=== PATIENT | male | born 1980 | race Caucasian/White ===

== ENCOUNTER 2020-10-26 15:23 | Inpatient (IN) | payer OTHER, SELFPAY ==
--- NOTE | ~2020-10-26 | CT_ITS ---
EXAMINATION: CT ANGIOGRAM HEAD CT ANGIOGRAM NECK CLINICAL INFORMATION: Bilateral hemianopsia. COMPARISON: CT head from 10/26/2020. Brain MRI from 10/26/2020. TECHNIQUE: Initial noncontrast food clerk imaging of the head and neck was performed. Comparison is made with noncontrast head CT from earlier today. Test bolus sequences followed by intravenous administration 70 mL of Omnipaque 350. Helical imaging was performed in the axial plane from the aortic arch to the skull vertex. Delayed postcontrast imaging of the head was also performed. The data was processed at the chief ultrasound technologist's workstation for generation of MIP sequences. Angled MIPs and volume rendered reformatted images were also generated at an offline 3D workstation. Stenoses are assessed in accordance with NASCET criteria unless otherwise indicated. This CT examination was performed using dose optimization techniques as appropriate, variously including the following: *Automated exposure control. *Adjustment of mA and/or kV according to patient size (this includes techniques or standardized protocols for targeted exams where dose is matched to indication/reason for exam; i.e. extremities or head). *Use of iterative reconstruction technique. DLP: 1490 mGy-cm FINDINGS: CT Head: Redemonstrated regions of lost burdick-white matter differentiation involving the bilateral MANUFACTURING QUALITY TECHNICIAN territories including the right greater than left mesial temporal lobes and parasagittal right occipital lobe. There is no evidence of acute intracranial hemorrhage. No additional abnormal attenuation within the brain parenchyma. The ventricles are normal in size and configuration. No evidence for obstructive hydrocephalus. No abnormal mass effect or midline shift. No extra-axial fluid collections. No pathologic intra-axial enhancement or regional oligemia. No acute soft tissue or osseous abnormalities. Mild mucosal thickening of the paranasal sinuses. Moderate leftward nasal septal deviation. The mastoid air cells and middle ear cavities are clear. CT Neck: The thyroid gland and remaining cervical soft tissues are within normal limits. Mild degenerative disc disease at C4-C5 and C5-C6 with slight disc-osteophyte complex formation. No additional significant abnormalities of the cervical spine. CT Upper Chest: The visualized lung apices and upper mediastinum are within normal limits. Neck CTA: Aortic Arch: Normal contour and caliber. Classic 3 vessel branching pattern of the aortic arch. Great Vessel Origins: No significant stenosis of the branch origins. Right Common Carotid Artery: No focal stenosis or occlusion. Cervical Right Internal Carotid Artery: Normal opacification without focal stenosis or occlusion. Left Common Carotid Artery: No focal stenosis or occlusion. Cervical Left Internal Carotid Artery: Normal opacification without focal stenosis or occlusion. Cervical Right Vertebral Artery: Co-dominant. No focal stenosis or occlusion. Cervical Left Vertebral Artery: Co-dominant. No focal stenosis or occlusion. Brain CTA: Intracranial Internal Carotid Arteries: No focal stenosis or occlusion. Right Anterior Cerebral Artery: Normal A1 segment. Normal opacification of the distal FLAVIO segments. Left Anterior Cerebral Artery: Normal A1 segment. Normal opacification of the distal FLAVIO segments. Anterior Communicating Artery: Normal. Right Middle Cerebral Artery: Normal M1 segment of the MCA without focal stenosis or occlusion. Normal arborization of the distal segments. Left Middle Cerebral Artery: Normal M1 segment of the MCA without focal stenosis or occlusion. Normal arborization of the distal segments. Right Vertebral Artery: Normal V4 segment. Normal opacification of the proximal segments of the posterior inferior cerebellar artery. Left Vertebral Artery: Normal V4 segment. Extradural origin of the left posterior inferior cerebellar artery. Otherwise, normal opacification of the proximal segments of the posterior inferior cerebellar artery. Basilar Artery: Normal without focal stenosis or occlusion. Normal appearance of the proximal superior cerebellar arteries. Right Posterior Cerebral Artery: Normal P1 segment. Normal opacification of the distal MANUFACTURING QUALITY TECHNICIAN segments. Left Posterior Cerebral Artery: Normal P1 segment. Normal opacification of the distal MANUFACTURING QUALITY TECHNICIAN segments. Normal opacification of the superior sagittal, straight, transverse, and sigmoid sinuses. CT/CT angio head neck IMPRESSION: Redemonstrated regions of lost burdick-white matter differentiation involving the bilateral MANUFACTURING QUALITY TECHNICIAN territories including the right greater than left mesial temporal lobes and parasagittal right occipital lobe. No evidence of hemorrhagic conversion. This change may represent sequela of developing acute ischemic insults. However, recommend correlation with blood pressures as this could also represent a slightly atypical appearance of posterior reversible encephalopathy syndrome (PRES). Potential prior seizure activity should also be taken into account has some of these changes could be seen in the postictal state. The distribution would be slightly atypical for infectious/inflammatory encephalitis but this should also be considered in the appropriate clinical setting. Normal CTA head and neck.
--- NOTE | ~2020-10-26 | CT_ITS ---
EXAMINATION: CT HEAD WITHOUT CONTRAST CLINICAL INFORMATION: Vision changes in the left side. Question stroke. COMPARISON: None TECHNIQUE: Contiguous axial imaging was performed from the skull base to vertex without intravenous administration of contrast. This CT examination was performed using dose optimization techniques as appropriate, variously including the following: *Automated exposure control *Adjustment of mA and/or kV according to patient size (this includes techniques or standardized protocols for targeted exams where dose is matched to indication/reason for exam; i.e. extremities or head) *Use of iterative reconstruction technique DLP: 661 mGy-cm FINDINGS: There is no evidence of an extra-axial collection. There is no evidence of intra-axial or extra-axial hemorrhage. The ventricles and extra-axial CSF spaces are appropriate. There is low-attenuation seen in the medial right occipital lobe questionable for an early infarct. No mass effect is seen. There is calcification of the basal ganglia. Review of bone windows is normal. Visualized paranasal sinuses, mastoid air cells and middle ears are clear. CT/CT head/brain wo con IMPRESSION: Question acute right occipital lobe infarct. No hemorrhage is seen. Findings were communicated to Hayley Evans by telephone on 10/26/2020 at 4:34 PM
--- NOTE | ~2020-10-26 | CT_ITS ---
EXAMINATION: CT HEAD WITHOUT CONTRAST CLINICAL INFORMATION: Headache. COMPARISON: Head CT and brain MRI from 10/26/2020. TECHNIQUE: Contiguous axial imaging was performed from the skull base to vertex without intravenous administration of contrast. This CT examination was performed using dose optimization techniques as appropriate, variously including the following: *Automated exposure control *Adjustment of mA and/or kV according to patient size (this includes techniques or standardized protocols for targeted exams where dose is matched to indication/reason for exam; i.e. extremities or head) *Use of iterative reconstruction technique DLP: 684 mGy-cm FINDINGS: Again noted is the abnormal hypoattenuation with loss of burdick-white differentiation involving the parasagittal right occipital lobe and mesial temporal lobe, as well as persistent subtle hypoattenuation of the mesial left temporal lobe. No hemorrhagic conversion. No mass effect or midline shift. The ventricles have normal size and configuration. There is symmetric mineralization of the globus pallidus. No extra-axial fluid collections. The brainstem is unremarkable. Again noted is mild cerebellar atrophy. The calvarium is intact and the visualized paranasal sinuses, mastoid air cells and middle ear cavities are well aerated. The orbits, globes and temporomandibular joints are unremarkable. CT/CT head/brain wo con IMPRESSION: No hemorrhagic conversion within previously observed areas of hypoattenuation and loss of burdick-white differentiation in the CHARGE ACCOUNT IDENTIFICATION CLERK territories. No new intracranial pathology compared to 10/26/2020.
--- NOTE | ~2020-10-26 | MR_ITS ---
EXAMINATION: MR BRAIN WITHOUT CONTRAST CLINICAL INFORMATION: Left homonymous hemianopsia. COMPARISON: CT head from 10/26/2020. TECHNIQUE: MRI of the brain was obtained using routine sequences without contrast. FINDINGS: Restricted diffusion in the right POSTDOCTORAL RESEARCH FELLOW territory involving the right-sided posterior mesial temporal lobe and parasagittal occipital lobe. To a lesser extent, there is also a small region of restricted diffusion within the left POSTDOCTORAL RESEARCH FELLOW territory involving the posterior left-sided mesial temporal lobe. No additional restricted diffusion. Associated T2 FLAIR hyperintensities. Mineralization of the bilateral globus pallidus by. No evidence of acute or chronic hemorrhagic products on heme-sensitive imaging. Nonspecific scattered periventricular and deep white matter T2 FLAIR hyperintensities. Mild generalized volume loss most notably affecting the cerebellum. Proportional prominence of the ventricles and sulcal spaces without evidence of obstructive hydrocephalus. No abnormal mass effect. No midline shift. Normal appearance of the pituitary gland. Normal positioning of the cerebellar tonsils. Normal arterial and venous vascular flow voids are present. Normal, homogeneous marrow signal. Mild mucosal thickening of the paranasal sinuses. No signal abnormalities within the mastoids. Mild mucosal thickening of the paranasal sinuses. No signal abnormalities within the mastoids MR/MR head/brain wo con IMPRESSION: 1. Regions of restricted diffusion involving the right greater than left POSTDOCTORAL RESEARCH FELLOW territories. No evidence of hemorrhagic conversion. This change may represent sequela of developing acute ischemic insults. However, recommend correlation with blood pressures as this could also represent a slightly atypical appearance of posterior reversible encephalopathy syndrome (PRES). Potential prior seizure activity should also be taken into account has some of these changes could be seen in the postictal state. The distribution would be slightly atypical for infectious/inflammatory encephalitis but this should also be considered in the appropriate clinical setting. 2. Beyond this acute-appearing change, there also appears to be scattered nonspecific mild white matter changes throughout. Mild generalized cerebral volume loss most notably affecting the cerebellum.
[2020-10-26 15:26] VITALS: BP 146/84; PULSE 80; RESP 16; TEMP 36.4; O2SAT 98; BMI 22.7
--- NOTE | 2020-10-26 15:28 | ECG_ITS ---
Test Reason : STROKE? Blood Pressure : / mmHG Vent. Rate : 076 BPM Atrial Rate : 076 BPM P-R Int : 164 ms QRS Dur : 084 ms QT Int : 376 ms P-R-T Axes : 053 064 029 degrees QTc Int : 423 ms Normal sinus rhythm Normal ECG No previous ECGs available Referred By: Hayley Evans Electronically Signed By:SUNIL MEDINA
--- NOTE | 2020-10-26 15:33 | ED.NEUROSD ---
HPI - Neuro Symptoms/Deficit General Chief Complaint: Neuro Symptoms/Deficit <FAUSTINA Mejia - Last Filed: 10/26/20 15:36> Stated Complaint: ?mild stroke <FAUSTINA Mejia - Last Filed: 10/26/20 15:36> Time Seen by Provider: 10/26/20 15:27 <FAUSTINA Mejia - Last Filed: 10/26/20 15:36> Source: patient <Laurie Finch DO - Last Filed: 10/26/20 20:41> Mode of arrival: ambulatory <Laurie Finch DO - Last Filed: 10/26/20 20:41> Limitations: no limitations <Luarie Finch DO - Last Filed: 10/26/20 20:41> History of Present Illness HPI Narrative: loss of vision L side - started 930pm last night went to his eye doctor and was dilated sent to ED for stroke <Laurie Finch DO - Last Filed: 10/26/20 20:41> Onset (ago): hour(s) (930pm last night) <Laurie Finch DO - Last Filed: 10/26/20 20:41> Location: other (vision) <Laurie Finch DO - Last Filed: 10/26/20 20:41> History of same: No <Laurie Finch DO - Last Filed: 10/26/20 20:41> Severity: moderate <Laurie Finch DO - Last Filed: 10/26/20 20:41> Quality: other (loss of vision) <Laurie Finch DO - Last Filed: 10/26/20 20:41> Relieving factors: none <Laurie Finch DO - Last Filed: 10/26/20 20:41> Exacerbating factors: none <Laurie Finch DO - Last Filed: 10/26/20 20:41> Context: sudden onset <Laurie Finch DO - Last Filed: 10/26/20 20:41> On Anticoagulants: No <Laurie Finch DO - Last Filed: 10/26/20 20:41> Associated symptoms: denies other symptoms <Laurie Finch DO - Last Filed: 10/26/20 20:41> Treatments Prior to Arrival: none <Laurie Finch DO - Last Filed: 10/26/20 20:41> Related Data Home Medications: Home Medications Medication Instructions Recorded Confirmed citalopram 10 mg tablet 1 tab PO BEDTIME 10/26/20 10/26/20 dicyclomine 10 mg capsule 1 cap PO TID PRN 10/26/20 10/26/20 <FAUSTINA Mejia - Last Filed: 10/26/20 15:36> Allergies/Adverse Reactions: Allergies Allergy/AdvReac Type Severity Reaction Status Date / Time No Known Allergies Allergy Verified 10/26/20 15:28 <FAUSTINA Mejia - Last Filed: 10/26/20 15:36> Review of Systems Review of Systems: Constitutional : No Weight loss, No Fever, No Chills, No Fatigue, No Malaise ENT/Mouth : No sore throat, No Rhinorrhea Eyes: No Eye Pain, No Swelling, No Redness, pos vision loss Cardiovascular : No Chest Pain, No SOB, No Dyspnea on Exertion, No Orthopnea, No Edema, No Palpitations Respiratory : No Cough, No Sputum, No Wheezing Gastrointestinal : No Nausea, No Vomiting, No Diarrhea, No Constipation, No abdominal Pain, No Hematochezia, No Melena Genitourinary : No Dysuria, No Urinary Frequency, No Hematuria, Musculoskeletal : No joint pain, No Myalgias, No Joint Swelling Skin : No Skin Lesions, No rash Neuro : No Weakness, No Numbness, No Dizziness, pos Headache Psych : No Anxiety/Panic, No Depression Heme/Lymph: No Bruising, No Bleeding,No Lymphadenopathy Endocrine : No Polyuria, No Polydipsia All other systems reviewed and are negative <Laurie Finch DO - Last Filed: 10/26/20 20:41> [facility] Past Medical History Attestation statement: The following information was validated with the patient. <Laurie Finch DO - Last Filed: 10/26/20 20:41> Medical History: Medical History Anxiety TIA (transient ischemic attack) <FAUSTINA Mejia - Last Filed: 10/26/20 15:36> Social History Social History: Social History Patient Tobacco Use Status: Never used Tobacco Use of substances other than those prescribed or required for medical reasons: No Advance Directives: No Advance Directives Information Provided: No <FAUSTINA Mejia - Last Filed: 10/26/20 15:36> Physical Exam Vital Signs: Vital Signs: Last Vital Signs Temp 97.5 F 10/26/20 15:26 Pulse 77 10/26/20 19:52 Resp 14 10/26/20 19:52 BP 126/76 10/26/20 19:52 Pulse Ox 100 10/26/20 19:52 Body Mass Index 22.7 <FAUSTINA Mejia - Last Filed: 10/26/20 15:36> Vital Signs: Last Vital Signs Temp 97.5 F 10/26/20 15:26 Pulse 77 10/26/20 19:52 Resp 14 10/26/20 19:52 BP 126/76 10/26/20 19:52 Pulse Ox 100 10/26/20 19:52 Body Mass Index 22.7 <Laurie Finch DO - Last Filed: 10/26/20 20:41> Appearance: Alert. Oriented X3. No acute distress. Eyes: R pupil 3mm reactive, L pupil 4+mm reactive ENT: Pharynx normal. Neck: Normal inspection. Neck supple. CVS: Normal heart rate and rhythm. Pulses normal. Respiratory: No respiratory distress. Breath sounds normal. Abdomen: Soft and nontender. Skin: Skin warm and dry. Normal skin color. Normal skin turgor. Extremities: No lower extremity edema. No calf ttp Neuro: Oriented X 3. No motor deficit. No sensory deficit. visual loss both eyes left side other other cranial nerves intact <Laurie Finch DO - Last Filed: 10/26/20 20:41> Course Course Course Narrative: 15:35pm - 39-year-old male presenting to the ED after being referred by his primary eye care doctor Dr. hinson after he was noted to have left homonymous hemianopsia likely secondary to a lesion in the right temporoparietal optic radiations or right visual cortex. They are recommending imaging of the brain including but not limited to MRI/MRA. Patient reports that he started having what he feels like with floaters to the left eye at approximately 9/930 last night and now it has progressed to blind spots this is how he describes it. On exam patient is alert oriented x3. Not in any acute distress. Vital signs are reviewed and patient mildly hypertensive 146/84 otherwise all other vitals are within normal limits. Patient reports left eye blind spots although he is able to see some things such as face is he reports he is able to see my faces. Otherwise no other focal neuro deficits are noted. Therefore patient was sent back to the waiting room to be further evaluated in the main ED and labs, CT scan of brain/MRI an MRA of brain ordered at this time. <FAUSTINA Mejia - Last Filed: 10/26/20 15:36> 15:35pm - 39-year-old male presenting to the ED after being referred by his primary eye care doctor Dr. hinson after he was noted to have left homonymous hemianopsia likely secondary to a lesion in the right temporoparietal optic radiations or right visual cortex. They are recommending imaging of the brain including but not limited to MRI/MRA. Patient reports that he started having what he feels like with floaters to the left eye at approximately 9/930 last night and now it has progressed to blind spots this is how he describes it. On exam patient is alert oriented x3. Not in any acute distress. Vital signs are reviewed and patient mildly hypertensive 146/84 otherwise all other vitals are within normal limits. Patient reports left eye blind spots although he is able to see some things such as face is he reports he is able to see my faces. Otherwise no other focal neuro deficits are noted. Therefore patient was sent back to the waiting room to be further evaluated in the main ED and labs, CT scan of brain/MRI an MRA of brain ordered at this time. CTA negative for LVO, PO aspirin ordered, normal BP doubt press, no fevers/meningeal signs no WBC count doubt encephalitis <Laurie Finch DO - Last Filed: 10/26/20 20:41> MDM - Neuro Symptoms/Deficit MDM Narrative Medical decision making narrative: 39 yo male with no known risk factors for stroke comes in with L hemianopsia starting last night at 930pm so he is not a candidate for tPa - will obtain CTA and labs, EKG, give oral aspirin and admit for stroke workup <Laurie Finch DO - Last Filed: 10/26/20 20:41> Lab Data Result diagrams: : 10/26/20 16:47 10/26/20 16:47 <FAUSTINA Mejia - Last Filed: 10/26/20 15:36> Labs: Lab Results 10/26/20 10/26/20 10/26/20 Range/Units 16:47 16:47 16:47 WBC 8.8 (4.8-10.8) X10*3/uL RBC 5.39 (4.60-5.80) X10*6/uL Hgb 16.3 (14.0-18.0) g/dl Hct 47.6 (42-52) % MCV 88.3 (80-98) fL MCH 30.2 (27.0-33.0) pg MCHC 34.2 (31.0-36.0) g/dl RDW 12.5 (11.0-16.0) % Plt Count 197 (160-400) X10*3/uL MPV 10.8 (9.4-12.4) fL Immature Gran % (Auto) 0.3 (0.0-0.4) % Neut % (Auto) 65.7 (45-73) % Lymph % (Auto) 24.5 (20-40) % [place]clean % (Auto) 7.9 (2-11) % Eos % (Auto) 1.3 (0-4) % Baso % (Auto) 0.3 (0-2) % Lymph # (Auto) 2.2 (1.2-4.9) X10*3/uL [place] # (Auto) 0.7 (0.1-1.2) X10*3/uL Eos # (Auto) 0.1 (0.0-0.4) X10*3/uL Baso # (Auto) 0.0 (0.0-0.2) X10*3/uL Abs Immat Gran (auto) 0.03 (0.00-0.03) X10*3/uL Absolute Neuts (auto) 5.8 (2.0-8.3) X10*3/uL Absolute Nucleated RBC 0.000 (0.0-0.012) X10*3/uL Nucleated RBC % (auto) 0.0 (0.0-0.2) /100WBC Hold Purple Top PT 11.5 (9.9-13.0) SEC INR 1.0 (0.9-1.1) APTT (24.1-38.0) SEC Sodium 140 (135-145) mmol/L Potassium 4.7 (3.3-5.1) mmol/L Chloride 103 (96-108) mmol/L Carbon Dioxide 27 (22-29) mmol/L Anion Gap 15 (12-20) BUN 14 (9-16) mg/dL Creatinine 0.76 (0.5-1.4) mg/dL Estim Creat Clear Calc 123.8 Estimated GFR > 60 Random Glucose 88 (60-115) mg/dL Calcium 9.6 (8.4-10.2) mg/dL Magnesium 2.4 (1.6-2.6) mg/dL Total Bilirubin 0.5 (0.0-1.0) mg/dL AST 23 (5-37) U/L ALT 18 (0-40) U/L Alkaline Phosphatase 69 (39-117) U/L C-Reactive Protein 0.33 (< or = 0.50) mg/dL Total Protein 7.2 (6.5-8.0) g/dL Albumin 4.8 (3.5-5.0) g/dL Urine Color Urine Appearance Urine pH (5.0-8.0) Ur Specific [place] (1.005-1.025) Urine Protein (NEG-TRACE) MG/DL Urine Glucose (UA) (NEG) MG/DL Urine Ketones (NEG) MG/DL Urine Blood (NEG) Urine Nitrite (NEG) Ur Leukocyte Esterase (NEG) COVID-19 ([facility]) (Negative) COVID-19 Clin Com 10/26/20 10/26/20 10/26/20 Range/Units 16:47 16:47 17:28 WBC (4.8-10.8) X10*3/uL RBC (4.60-5.80) X10*6/uL Hgb (14.0-18.0) g/dl Hct (42-52) % MCV (80-98) fL MCH (27.0-33.0) pg MCHC (31.0-36.0) g/dl RDW (11.0-16.0) % Plt Count (160-400) X10*3/uL MPV (9.4-12.4) fL Immature Gran % (Auto) (0.0-0.4) % Neut % (Auto) (45-73) % Lymph % (Auto) (20-40) % Mclean % (Auto) (2-11) % Eos % (Auto) (0-4) % Baso % (Auto) (0-2) % Lymph # (Auto) (1.2-4.9) X10*3/uL [place] # (Auto) (0.1-1.2) X10*3/uL Eos # (Auto) (0.0-0.4) X10*3/uL Baso # (Auto) (0.0-0.2) X10*3/uL Abs Immat Gran (auto) (0.00-0.03) X10*3/uL Absolute Neuts (auto) (2.0-8.3) X10*3/uL Absolute Nucleated RBC (0.0-0.012) X10*3/uL Nucleated RBC % (auto) (0.0-0.2) /100WBC Hold Purple Top SEE NOTE PT (9.9-13.0) SEC INR (0.9-1.1) APTT 46.1 H (24.1-38.0) SEC Sodium (135-145) mmol/L Potassium (3.3-5.1) mmol/L Chloride (96-108) mmol/L Carbon Dioxide (22-29) mmol/L Anion Gap (12-20) BUN (9-16) mg/dL Creatinine (0.5-1.4) mg/dL Estim Creat Clear Calc Estimated GFR Random Glucose (60-115) mg/dL Calcium (8.4-10.2) mg/dL Magnesium (1.6-2.6) mg/dL Total Bilirubin (0.0-1.0) mg/dL AST (5-37) U/L ALT (0-40) U/L Alkaline Phosphatase (39-117) U/L C-Reactive Protein (< or = 0.50) mg/dL Total Protein (6.5-8.0) g/dL Albumin (3.5-5.0) g/dL Urine Color Urine Appearance Urine pH (5.0-8.0) Ur Specific [place] (1.005-1.025) Urine Protein (NEG-TRACE) MG/DL Urine Glucose (UA) (NEG) MG/DL Urine Ketones (NEG) MG/DL Urine Blood (NEG) Urine Nitrite (NEG) Ur Leukocyte Esterase (NEG) COVID-19 ([facility]) Negative (Negative) COVID-19 Clin Com See Note 10/26/20 Range/Units 19:53 WBC (4.8-10.8) X10*3/uL RBC (4.60-5.80) X10*6/uL Hgb (14.0-18.0) g/dl Hct (42-52) % MCV (80-98) fL MCH (27.0-33.0) pg MCHC (31.0-36.0) g/dl RDW (11.0-16.0) % Plt Count (160-400) X10*3/uL MPV (9.4-12.4) fL Immature Gran % (Auto) (0.0-0.4) % Neut % (Auto) (45-73) % Lymph % (Auto) (20-40) % [place]clean % (Auto) (2-11) % Eos % (Auto) (0-4) % Baso % (Auto) (0-2) % Lymph # (Auto) (1.2-4.9) X10*3/uL [place] # (Auto) (0.1-1.2) X10*3/uL Eos # (Auto) (0.0-0.4) X10*3/uL Baso # (Auto) (0.0-0.2) X10*3/uL Abs Immat Gran (auto) (0.00-0.03) X10*3/uL Absolute Neuts (auto) (2.0-8.3) X10*3/uL Absolute Nucleated RBC (0.0-0.012) X10*3/uL Nucleated RBC % (auto) (0.0-0.2) /100WBC Hold Purple Top PT (9.9-13.0) SEC INR (0.9-1.1) APTT (24.1-38.0) SEC Sodium (135-145) mmol/L Potassium (3.3-5.1) mmol/L Chloride (96-108) mmol/L Carbon Dioxide (22-29) mmol/L Anion Gap (12-20) BUN (9-16) mg/dL Creatinine (0.5-1.4) mg/dL Estim Creat Clear Calc Estimated GFR Random Glucose (60-115) mg/dL Calcium (8.4-10.2) mg/dL Magnesium (1.6-2.6) mg/dL Total Bilirubin (0.0-1.0) mg/dL AST (5-37) U/L ALT (0-40) U/L Alkaline Phosphatase (39-117) U/L C-Reactive Protein (< or = 0.50) mg/dL Total Protein (6.5-8.0) g/dL Albumin (3.5-5.0) g/dL Urine Color YELLOW Urine Appearance CLEAR Urine pH 6.0 (5.0-8.0) Ur Specific [place] <= 1.005 (1.005-1.025) Urine Protein NEG (NEG-TRACE) MG/DL Urine Glucose (UA) NEG (NEG) MG/DL Urine Ketones NEG (NEG) MG/DL Urine Blood NEG (NEG) Urine Nitrite NEG (NEG) Ur Leukocyte Esterase NEG (NEG) COVID-19 ([facility]) (Negative) COVID-19 Clin Com <FAUSTINA Mejia - Last Filed: 10/26/20 15:36> Lab Results 10/26/20 10/26/20 10/26/20 Range/Units 16:47 16:47 16:47 WBC 8.8 (4.8-10.8) X10*3/uL RBC 5.39 (4.60-5.80) X10*6/uL Hgb 16.3 (14.0-18.0) g/dl Hct 47.6 (42-52) % MCV 88.3 (80-98) fL MCH 30.2 (27.0-33.0) pg MCHC 34.2 (31.0-36.0) g/dl RDW 12.5 (11.0-16.0) % Plt Count 197 (160-400) X10*3/uL MPV 10.8 (9.4-12.4) fL Immature Gran % (Auto) 0.3 (0.0-0.4) % Neut % (Auto) 65.7 (45-73) % Lymph % (Auto) 24.5 (20-40) % Mclean % (Auto) 7.9 (2-11) % Eos % (Auto) 1.3 (0-4) % Baso % (Auto) 0.3 (0-2) % Lymph # (Auto) 2.2 (1.2-4.9) X10*3/uL [place] # (Auto) 0.7 (0.1-1.2) X10*3/uL Eos # (Auto) 0.1 (0.0-0.4) X10*3/uL Baso # (Auto) 0.0 (0.0-0.2) X10*3/uL Abs Immat Gran (auto) 0.03 (0.00-0.03) X10*3/uL Absolute Neuts (auto) 5.8 (2.0-8.3) X10*3/uL Absolute Nucleated RBC 0.000 (0.0-0.012) X10*3/uL Nucleated RBC % (auto) 0.0 (0.0-0.2) /100WBC Hold Purple Top PT 11.5 (9.9-13.0) SEC INR 1.0 (0.9-1.1) APTT (24.1-38.0) SEC Sodium 140 (135-145) mmol/L Potassium 4.7 (3.3-5.1) mmol/L Chloride 103 (96-108) mmol/L Carbon Dioxide 27 (22-29) mmol/L Anion Gap 15 (12-20) BUN 14 (9-16) mg/dL Creatinine 0.76 (0.5-1.4) mg/dL Estim Creat Clear Calc 123.8 Estimated GFR > 60 Random Glucose 88 (60-115) mg/dL Calcium 9.6 (8.4-10.2) mg/dL Magnesium 2.4 (1.6-2.6) mg/dL Total Bilirubin 0.5 (0.0-1.0) mg/dL AST 23 (5-37) U/L ALT 18 (0-40) U/L Alkaline Phosphatase 69 (39-117) U/L C-Reactive Protein 0.33 (< or = 0.50) mg/dL Total Protein 7.2 (6.5-8.0) g/dL Albumin 4.8 (3.5-5.0) g/dL Urine Color Urine Appearance Urine pH (5.0-8.0) Ur Specific [place] (1.005-1.025) Urine Protein (NEG-TRACE) MG/DL Urine Glucose (UA) (NEG) MG/DL Urine Ketones (NEG) MG/DL Urine Blood (NEG) Urine Nitrite (NEG) Ur Leukocyte Esterase (NEG) COVID-19 ([facility]) (Negative) COVID-19 Clin Com 10/26/20 10/26/20 10/26/20 Range/Units 16:47 16:47 17:28 WBC (4.8-10.8) X10*3/uL RBC (4.60-5.80) X10*6/uL Hgb (14.0-18.0) g/dl Hct (42-52) % MCV (80-98) fL MCH (27.0-33.0) pg MCHC (31.0-36.0) g/dl RDW (11.0-16.0) % Plt Count (160-400) X10*3/uL MPV (9.4-12.4) fL Immature Gran % (Auto) (0.0-0.4) % Neut % (Auto) (45-73) % Lymph % (Auto) (20-40) % Mclean % (Auto) (2-11) % Eos % (Auto) (0-4) % Baso % (Auto) (0-2) % Lymph # (Auto) (1.2-4.9) X10*3/uL [place] # (Auto) (0.1-1.2) X10*3/uL Eos # (Auto) (0.0-0.4) X10*3/uL Baso # (Auto) (0.0-0.2) X10*3/uL Abs Immat Gran (auto) (0.00-0.03) X10*3/uL Absolute Neuts (auto) (2.0-8.3) X10*3/uL Absolute Nucleated RBC (0.0-0.012) X10*3/uL Nucleated RBC % (auto) (0.0-0.2) /100WBC Hold Purple Top SEE NOTE PT (9.9-13.0) SEC INR (0.9-1.1) APTT 46.1 H (24.1-38.0) SEC Sodium (135-145) mmol/L Potassium (3.3-5.1) mmol/L Chloride (96-108) mmol/L Carbon Dioxide (22-29) mmol/L Anion Gap (12-20) BUN (9-16) mg/dL Creatinine (0.5-1.4) mg/dL Estim Creat Clear Calc Estimated GFR Random Glucose (60-115) mg/dL Calcium (8.4-10.2) mg/dL Magnesium (1.6-2.6) mg/dL Total Bilirubin (0.0-1.0) mg/dL AST (5-37) U/L ALT (0-40) U/L Alkaline Phosphatase (39-117) U/L C-Reactive Protein (< or = 0.50) mg/dL Total Protein (6.5-8.0) g/dL Albumin (3.5-5.0) g/dL Urine Color Urine Appearance Urine pH (5.0-8.0) Ur Specific [place] (1.005-1.025) Urine Protein (NEG-TRACE) MG/DL Urine Glucose (UA) (NEG) MG/DL Urine Ketones (NEG) MG/DL Urine Blood (NEG) Urine Nitrite (NEG) Ur Leukocyte Esterase (NEG) COVID-19 ([facility]) Negative (Negative) COVID-19 Clin Com See Note 10/26/20 Range/Units 19:53 WBC (4.8-10.8) X10*3/uL RBC (4.60-5.80) X10*6/uL Hgb (14.0-18.0) g/dl Hct (42-52) % MCV (80-98) fL MCH (27.0-33.0) pg MCHC (31.0-36.0) g/dl RDW (11.0-16.0) % Plt Count (160-400) X10*3/uL MPV (9.4-12.4) fL Immature Gran % (Auto) (0.0-0.4) % Neut % (Auto) (45-73) % Lymph % (Auto) (20-40) % Mclean % (Auto) (2-11) % Eos % (Auto) (0-4) % Baso % (Auto) (0-2) % Lymph # (Auto) (1.2-4.9) X10*3/uL [place] # (Auto) (0.1-1.2) X10*3/uL Eos # (Auto) (0.0-0.4) X10*3/uL Baso # (Auto) (0.0-0.2) X10*3/uL Abs Immat Gran (auto) (0.00-0.03) X10*3/uL Absolute Neuts (auto) (2.0-8.3) X10*3/uL Absolute Nucleated RBC (0.0-0.012) X10*3/uL Nucleated RBC % (auto) (0.0-0.2) /100WBC Hold Purple Top PT (9.9-13.0) SEC INR (0.9-1.1) APTT (24.1-38.0) SEC Sodium (135-145) mmol/L Potassium (3.3-5.1) mmol/L Chloride (96-108) mmol/L Carbon Dioxide (22-29) mmol/L Anion Gap (12-20) BUN (9-16) mg/dL Creatinine (0.5-1.4) mg/dL Estim Creat Clear Calc Estimated GFR Random Glucose (60-115) mg/dL Calcium (8.4-10.2) mg/dL Magnesium (1.6-2.6) mg/dL Total Bilirubin (0.0-1.0) mg/dL AST (5-37) U/L ALT (0-40) U/L Alkaline Phosphatase (39-117) U/L C-Reactive Protein (< or = 0.50) mg/dL Total Protein (6.5-8.0) g/dL Albumin (3.5-5.0) g/dL Urine Color YELLOW Urine Appearance CLEAR Urine pH 6.0 (5.0-8.0) Ur Specific [place] <= 1.005 (1.005-1.025) Urine Protein NEG (NEG-TRACE) MG/DL Urine Glucose (UA) NEG (NEG) MG/DL Urine Ketones NEG (NEG) MG/DL Urine Blood NEG (NEG) Urine Nitrite NEG (NEG) Ur Leukocyte Esterase NEG (NEG) COVID-19 ([facility]) (Negative) COVID-19 Clin Com <Laurie Josette DO - Last Filed: 10/26/20 20:41> ECG Data Attestation: I personally reviewed and interpreted this ECG as follows: <Laurie Finch DO - Last Filed: 10/26/20 20:41> ECG interpretation date: 10/26/20 <Laurie Finch DO - Last Filed: 10/26/20 20:41> ECG interpretation time: 17:03 <Laurie Finch DO - Last Filed: 10/26/20 20:41> Interpretation: Rate: 76 Rhythm: NSR [place]: normal Normal P waves. Normal NAZ. Normal QRS complex. ST T wave : normal no DENA qTC: normal prior studies: no acute ischemia artifact noted The study has been interpreted contemporaneously by me. . <Laurie Finch, DO - Last Filed: 10/26/20 20:41> NIH Stroke Scale Internal: Initial- Upon Arrival <Laurie Finch DO - Last Filed: 10/26/20 20:41> Level of Consciousness: Alert <Laurie Finch DO - Last Filed: 10/26/20 20:41> Level of Consciousness Questions: Answers both questions correctly <Laurie Finch, DO - Last Filed: 10/26/20 20:41> Level of Consciousness Commands: Performs both tasks correctly <Laurie Finch, DO - Last Filed: 10/26/20 20:41> Best Gaze: Normal <Laurie Finch DO - Last Filed: 10/26/20 20:41> Visual: Bilateral hemianopia <Laurie Finch, DO - Last Filed: 10/26/20 20:41> Facial Palsy: Normal <Laurie Finch DO - Last Filed: 10/26/20 20:41> Motor Arm (Right): No drift <Laurie Finch DO - Last Filed: 10/26/20 20:41> Motor Arm (Left): No drift <Laurie Finch DO - Last Filed: 10/26/20 20:41> Motor Leg (Right): No drift <Laurie Finch DO - Last Filed: 10/26/20 20:41> Motor Leg (Left): No drift <Laurie Finch DO - Last Filed: 10/26/20 20:41> Limb Ataxia: Absent <Laurie Finch DO - Last Filed: 10/26/20 20:41> Sensory: Normal <Laurie Finch DO - Last Filed: 10/26/20 20:41> Best Language: No aphasia <Laurie Finch DO - Last Filed: 10/26/20 20:41> Dysarthia: Normal <Laurie Finch DO - Last Filed: 10/26/20 20:41> Extinction and Inattention: No abnormality <Laurie Finch DO - Last Filed: 10/26/20 20:41> Score: 3 <Laurie Finch DO - Last Filed: 10/26/20 20:41> Discharge Plan Discharge Clinical Impression: Bilateral hemianopia <FAUSTINA Mejia - Last Filed: 10/26/20 15:36> Patient Disposition: Admitted As Inpatient <FAUSTINA Mejia Last Filed: 10/26/20 15:36>
--- NOTE | 2020-10-26 16:49 | PC.NURSE ---
PT PLACED IN [facility]. DR NORIEGA TO BEDSIDE. IV INSERTED. LABS OBTAINED PLACED ON MONITOR. REPORTS THAT SYMPTOMS STARTED LAST NIGHT AT 2100.
[2020-10-26 17:04] LABS: Basophils Percent Auto 0.3 % (0-2); Eosinophils Absolute Auto 0.1 X10*3/uL (0.0-0.4); Eosinophils Percent Auto 1.3 % (0-4); Hematocrit 47.6 % (42-52); Hemoglobin 16.3 g/dl (14.0-18.0); Imm Gran Abs Auto 0.03 X10*3/uL (0.00-0.03); Imm Gran Pct Auto 0.3 % (0.0-0.4); Lymphocytes Absolute Auto 2.2 X10*3/uL (1.2-4.9); Lymphocytes Percent Auto 24.5 % (20-40); MANUAL DIFF FLAG NO; Mean Corpuscular HGB Conc 34.2 g/dl (31.0-36.0); Mean Corpuscular Hemoglobin 30.2 pg (27.0-33.0); Mean Corpuscular Volume 88.3 fL (80-98); Mean Platelet Volume 10.8 fL (9.4-12.4); Monocytes Absolute Auto 0.7 X10*3/uL (0.1-1.2); Monocytes Percent Auto 7.9 % (2-11); Neutrophils Absolute Auto 5.8 X10*3/uL (2.0-8.3); Neutrophils Percent Auto 65.7 % (45-73); Platelet Count 197 X10*3/uL (160-400); Red Blood Count 5.39 X10*6/uL (4.60-5.80); Red Cell Distribution Width 12.5 % (11.0-16.0); White Blood Count 8.8 X10*3/uL (4.8-10.8)
[2020-10-26 17:09] LABS: Prothrombin Time 11.5 SEC (9.9-13.0)
[2020-10-26 17:12] LABS: Partial Thromboplastin Time 46.1 SEC (24.1-38.0)
[2020-10-26] MEDS: Aspirin 325 MG TABLET PO (17:15)
[2020-10-26 17:35] LABS: Alanine Aminotransferase 18 U/L (0-40); Albumin Level 4.8 g/dL (3.5-5.0); Alkaline Phosphatase 69 U/L (39-117); Anion Gap 15 (12-20); Aspartate Amino Transferase 23 U/L (5-37); Bilirubin Total 0.5 mg/dL (0.0-1.0); Blood Urea Nitrogen 14 mg/dL (9-16); Calcium 9.6 mg/dL (8.4-10.2); Carbon Dioxide 27 mmol/L (22-29); Chloride 103 mmol/L (96-108); Creatinine Clr Calc Pharmacy 123.8; Estimated Glomerular Filt Rate > 60; Glucose Random 88 mg/dL (60-115); Magnesium 2.4 mg/dL (1.6-2.6); Potassium 4.7 mmol/L (3.3-5.1); Sodium 140 mmol/L (135-145); Total Protein 7.2 g/dL (6.5-8.0)
[2020-10-26 17:52] LABS: COVID-19 Test Negative (Negative)
[2020-10-26] MEDS: iohexoL 350 MG/ML 100 ML INFUS..BTL IV (19:11)
[2020-10-26 19:52] VITALS: BP 126/76; PULSE 77; RESP 14; O2SAT 100
[2020-10-26 20:06] LABS: Appearance Urine CLEAR; Color Urine YELLOW; Glucose Urine UA NEG (NEG); Leukocyte Esterase Urine NEG (NEG); Nitrite Urine NEG (NEG); Specific Gravity - Urine <= 1.005 (1.005-1.025); Urine Blood NEG (NEG); Urine Ketones NEG (NEG); Urine Protein NEG (NEG-TRACE)
[2020-10-26 20:31] VITALS: BP 136/82; PULSE 77; RESP 17; O2SAT 99
[2020-10-26 20:36] LABS: C Reactive Protein 0.33 mg/dL (< or = 0.50)
--- NOTE | 2020-10-26 20:38 | P.HPHOSP_ITS ---
History of Present Illness Date of Service: 10/26/20 Chief Complaint: Floaters in the left eye 39-year-old male with no significant past medical history presented to the hospital with a chief complaint of floaters in the eye. Patient reported that on 10/25/20 evening around 9 9:30 p.m. patient noted to have floaters in his left eye which gradually progressed to blind spots. Denies any headaches. Denies any numbness tingling or focal weakness. Patient mentions that he thought the symptoms would improve, to kiss melatonin and went to sleep; at the symptoms were not improving in the morning he went to his eye doctor Dr. Sheikh-> who is concern for left homonymous hemianopsia, concern for stroke recommended MRI MRA brain and sent him to the ER for further evaluation. Patient came to the ER around 3:00 p.m. on 10/26/2020; continued to have the symptoms; denies any chest pain palpitations lightheadedness or dizziness. Reports blind spots in the left eye; Denies any fever chills cough. Denies any recent travel or sick contacts. 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 MRI brain showed regions of restricted diffusion involving right greater than left SMALL ARMS ARTILLERY REPAIRER territories. Patient was given aspirin. Admitted to the hospital for further stroke workup. [facility] Medical History Anxiety TIA (transient ischemic attack) Social History Patient Tobacco Use Status: Never used Tobacco Use of substances other than those prescribed or required for medical reasons: No Advance Directives: No Advance Directives Information Provided: No Meds Allergies Allergy/AdvReac Type Severity Reaction Status Date / Time No Known Allergies Allergy Verified 10/26/20 15:28 Active Medications: Current Medications Generic Name Dose Route Start Last Admin Trade Name Freq PRN Reason Stop Dose Admin Acetaminophen 650 mg 10/26/20 20:31 Acetaminophen 325 Mg Tablet PO Q6H PRN Pain, Mild (Pain Scale 1-3) Aspirin 81 mg 10/27/20 09:00 Aspirin Enteric Coated 81 Mg Tablet. PO DAILY [facility] Melatonin 6 mg 10/26/20 20:31 Melatonin 3 Mg Tablet PO BEDTIME PRN Insomnia Pharmacy Consult 1 each 10/26/20 17:10 Consult Rx Perform Med Rec MISCELLANE ONCE PRN Consult order Senna 17.2 mg 10/26/20 20:31 Sennosides 8.6 Mg Tablet PO BEDTIME PRN Constipation Sodium Chloride 3 ml 10/27/20 00:00 0.9 % Sodium Chloride Flush 3 Ml Syringe IVFLUSH QSHIFT [facility] Home Medications Medication Instructions Recorded Confirmed Last Taken Type citalopram 10 mg tablet 1 tab PO BEDTIME 10/26/20 10/26/20 10/25/20 History dicyclomine 10 mg capsule 1 cap PO TID PRN 10/26/20 10/26/20 10/26/20 History Physical Exam Vital Signs and Narrative: Vital Signs: Last Vital Signs Temp 97.5 F 10/26/20 15:26 Pulse 77 10/26/20 19:52 Resp 14 10/26/20 19:52 BP 126/76 10/26/20 19:52 Pulse Ox 100 10/26/20 19:52 Body Mass Index 22.7 Gen: Appears be in no acute distress HEENT: NCAT, Moist mucosa. Pulmonary: Vesicular breath sounds, fair air entry CVS: Normal S1-S2 Abdomen: BS+, Soft, Nontender Extremities: Warm well perfused Neuro: Alert and awake. Results Labs CBC and Chem 7: 10/26/20 16:47 10/26/20 16:47 Labs: Laboratory Results - last 24 hr 10/26/20 10/26/20 10/26/20 16:47 16:47 16:47 MCV 88.3 MCH 30.2 MCHC 34.2 RDW 12.5 Plt Count 197 MPV 10.8 Immature Gran % (Auto) 0.3 Neut % (Auto) 65.7 Lymph % (Auto) 24.5 [place] % (Auto) 7.9 Eos % (Auto) 1.3 Baso % (Auto) 0.3 Lymph # (Auto) 2.2 [place] # (Auto) 0.7 Eos # (Auto) 0.1 Baso # (Auto) 0.0 Abs Immat Gran (auto) 0.03 Absolute Neuts (auto) 5.8 Absolute Nucleated RBC 0.000 Nucleated RBC % (auto) 0.0 Hold Purple Top PT 11.5 INR 1.0 APTT Anion Gap 15 Estim Creat Clear Calc 123.8 Estimated GFR > 60 Random Glucose 88 Calcium 9.6 Magnesium 2.4 Total Bilirubin 0.5 AST 23 ALT 18 Alkaline Phosphatase 69 C-Reactive Protein 0.33 Total Protein 7.2 Albumin 4.8 Urine Color Urine Appearance Urine pH Ur Specific [place] Urine Protein Urine Glucose (UA) Urine Ketones Urine Blood Urine Nitrite Ur Leukocyte Esterase COVID-19 ([facility]) COVID-19 Clin Com 10/26/20 10/26/20 10/26/20 16:47 16:47 17:28 MCV MCH MCHC RDW Plt Count MPV Immature Gran % (Auto) Neut % (Auto) Lymph % (Auto) [place] % (Auto) Eos % (Auto) Baso % (Auto) Lymph # (Auto) [place] # (Auto) Eos # (Auto) Baso # (Auto) Abs Immat Gran (auto) Absolute Neuts (auto) Absolute Nucleated RBC Nucleated RBC % (auto) Hold Purple Top SEE NOTE PT INR APTT 46.1 H Anion Gap Estim Creat Clear Calc Estimated GFR Random Glucose Calcium Magnesium Total Bilirubin AST ALT Alkaline Phosphatase C-Reactive Protein Total Protein Albumin Urine Color Urine Appearance Urine pH Ur Specific [place] Urine Protein Urine Glucose (UA) Urine Ketones Urine Blood Urine Nitrite Ur Leukocyte Esterase COVID-19 ([place]) Negative COVID-19 Clin Com See Note 10/26/20 19:53 MCV MCH MCHC RDW Plt Count MPV Immature Gran % (Auto) Neut % (Auto) Lymph % (Auto) [place] % (Auto) Eos % (Auto) Baso % (Auto) Lymph # (Auto) [place] # (Auto) Eos # (Auto) Baso # (Auto) Abs Immat Gran (auto) Absolute Neuts (auto) Absolute Nucleated RBC Nucleated RBC % (auto) Hold Purple Top PT INR APTT Anion Gap Estim Creat Clear Calc Estimated GFR Random Glucose Calcium Magnesium Total Bilirubin AST ALT Alkaline Phosphatase C-Reactive Protein Total Protein Albumin Urine Color YELLOW Urine Appearance CLEAR Urine pH 6.0 Ur Specific [place] <= 1.005 Urine Protein NEG Urine Glucose (UA) NEG Urine Ketones NEG Urine Blood NEG Urine Nitrite NEG Ur Leukocyte Esterase NEG COVID-19 ([facility]) COVID-19 Clin Com Imaging Radiologist's Impressions: Impressions Head CT 10/26/20 15:28 IMPRESSION: Question acute right occipital lobe infarct. No hemorrhage is seen. Findings were communicated to Hayley Evans by telephone on 10/26/2020 at 4:34 PM Brain MRI 10/26/20 15:31 IMPRESSION: 1. Regions of restricted diffusion involving the right greater than left SMALL ARMS ARTILLERY REPAIRER territories. No evidence of hemorrhagic conversion. This change may represent sequela of developing acute ischemic insults. However, recommend correlation with blood pressures as this could also represent a slightly atypical appearance of posterior reversible encephalopathy syndrome (PRES). Potential prior seizure activity should also be taken into account has some of these changes could be seen in the postictal state. The distribution would be slightly atypical for infectious/inflammatory encephalitis but this should also be considered in the appropriate clinical setting. 2. Beyond this acute-appearing change, there also appears to be scattered nonspecific mild white matter changes throughout. Mild generalized cerebral volume loss most notably affecting the cerebellum. Head/Neck CTA 10/26/20 16:57 IMPRESSION: Redemonstrated regions of lost burdick-white matter differentiation involving the bilateral SMALL ARMS ARTILLERY REPAIRER territories including the right greater than left mesial temporal lobes and parasagittal right occipital lobe. No evidence of hemorrhagic conversion. This change may represent sequela of developing acute ischemic insults. However, recommend correlation with blood pressures as this could also represent a slightly atypical appearance of posterior reversible encephalopathy syndrome (PRES). Potential prior seizure activity should also be taken into account has some of these changes could be seen in the postictal state. The distribution would be slightly atypical for infectious/inflammatory encephalitis but this should also be considered in the appropriate clinical setting. Normal CTA head and neck. Assessment and Plan (1) Bilateral hemianopia: Status: Acute 39-year-old male with no significant past medical history presented to the hospital with a chief complaint of floaters in the eye. Noted left homonymous hemianopsia; CT consistent with occipital infarct. Admitted for further management. right occipital infarct:left hemianopsia. pt reports that his symptoms slig htly improving. Patient's symptoms started almost 24 hours ago; out of the window for tPA. CT angio head and showed no obvious occlusion. MRI brain showed: . Regions of restricted diffusion involving the right greater than left SMALL ARMS ARTILLERY REPAIRER territories. No evidence of hemorrhagic conversion. Echocardiogram with bubble study Headache: pt complains of prior headaches and takes naproxen, excedrin,coffee; now has severe headache around 630am. will repeat CT head. Will pass on Day hospitalist team to follow up repeat CT results. Telemetry Continue aspirin Lipid profile Neurology consult for further recommendations PT OT/dysphagia screen. DVT prophylaxis: SCD boots Code status: Full code Quality Stroke Does the patient have a stroke diagnosis?: No VTE Prior VTE?: No VTE Risk Level:: Medical - moderate - high VTE Device Contraindication: N/A - Device Ordered VTE Drug Contraindication: Treatment Not Indicated
[2020-10-26 20:54] VITALS: BP 136/82; PULSE 80; RESP 15
[2020-10-26] MEDS: LORazepam 1 MG TABLET PO (21:05)
[2020-10-26] MEDS: Butalb/Acetamin/Caff 50/325/40 TABLET 1 TAB PO (21:05)
--- NOTE | 2020-10-26 21:13 | PC.NURSE ---
HOSPITALIST AT BEDSIDE. PT JUST HAD EPISODE WHERE HE SAID HIS EYE POPPED AND HE COULD SEE OUT OF HIS LEFT EYE FULLY. GOT A SEVERE HEADACHE. THEN VISION WENT BACK TO NOT BEING ABLE TO SEE PERIPHERY.
[2020-10-26 21:33] LABS: Erythrocyte Sedimentation Rate 2 MM/HR (0-15)
[2020-10-26 22:01] VITALS: PULSE 17
[2020-10-27] VITALS (13 sets, daily range): BP systolic 93–142; BP diastolic 55–79; PULSE 67–90; RESP 12–19; TEMP 36.2–37.3; O2SAT 97–100; BMI 22.7
--- NOTE | 2020-10-27 01:01 | PC.NURSE ---
REPORT RECEIVED FROM PIERCE LOWE IN [facility]. PT NEURO ALERT OREINTED X3, HAND GRASP EQUAL PRASANTH. NSR ON THE MONITOR. LEFT EYE REDNESS NOTED. PT STATES HE STILL HAS THE BLIND SPOT IN THE LEFT EYE WHEN LOOKING AT 0900.
--- NOTE | 2020-10-27 01:10 | PC.NURSE ---
PT MOVED TO ROOM 15. REPORT GIVEN TO FE LOWE.
[2020-10-27] MEDS: oxyCODONE HCl Immed Release 5 MG TABLET PO (06:54)
[2020-10-27 07:40] LABS: MANUAL DIFF FLAG NO
[2020-10-27 07:43] LABS: Basophils Percent Auto 0.2 % (0-2); Eosinophils Absolute Auto 0.1 X10*3/uL (0.0-0.4); Eosinophils Percent Auto 1.5 % (0-4); Hematocrit 49.2 % (42-52); Hemoglobin 16.7 g/dl (14.0-18.0); Imm Gran Abs Auto 0.04 X10*3/uL (0.00-0.03); Imm Gran Pct Auto 0.5 % (0.0-0.4); Lymphocytes Absolute Auto 1.9 X10*3/uL (1.2-4.9); Lymphocytes Percent Auto 21.5 % (20-40); Mean Corpuscular HGB Conc 33.9 g/dl (31.0-36.0); Mean Corpuscular Volume 88.3 fL (80-98); Mean Platelet Volume 10.7 fL (9.4-12.4); Monocytes Absolute Auto 0.7 X10*3/uL (0.1-1.2); Neutrophils Absolute Auto 5.9 X10*3/uL (2.0-8.3); Neutrophils Percent Auto 68.3 % (45-73); Platelet Count 185 X10*3/uL (160-400); Red Blood Count 5.57 X10*6/uL (4.60-5.80); Red Cell Distribution Width 12.3 % (11.0-16.0); White Blood Count 8.7 X10*3/uL (4.8-10.8)
[2020-10-27 07:57] LABS: Anion Gap 12 (12-20); Blood Urea Nitrogen 11 mg/dL (9-16); Calcium 9.3 mg/dL (8.4-10.2); Carbon Dioxide 27 mmol/L (22-29); Chloride 103 mmol/L (96-108); Creatinine Clr Calc Pharmacy 128.8; Estimated Glomerular Filt Rate > 60; Glucose Random 93 mg/dL (60-115); Potassium 4.6 mmol/L (3.3-5.1); Sodium 137 mmol/L (135-145)
[2020-10-27 07:59] LABS: Cholesterol 172 mg/dL; HDL Cholesterol 36 mg/dL; LDL Cholesterol Calculated 111 mg/dl; Triglycerides 128 mg/dL
[2020-10-27] MEDS: 0.9 % Sodium Chloride Flush 3 ML SYRINGE IVFLUSH ×3 (09:03→23:27)
[2020-10-27 09:13] LABS: Estimated Average Glucose 97 mg/dL
--- NOTE | 2020-10-27 09:19 | PC.NURSE ---
pt a/o x 3 no sob/tyree noted skin pink warm dry speaks in full sentences. neuros - wnl, l eye slight redness noted, md aware.
--- NOTE | 2020-10-27 09:20 | PC.NURSE ---
pt aware off plan of care for admission to hosp. nurse to nurse given to johana (sp).
[2020-10-27] MEDS: Butalb/Acetamin/Caff 50/325/40 TABLET 1 TAB PO ×2 (10:41→19:49)
[2020-10-27] MEDS: Atorvastatin Calcium 80 MG TABLET PO (10:41)
[2020-10-27] MEDS: Aspirin Enteric Coated 81 MG TABLET.DR PO (10:42)
--- NOTE | 2020-10-27 14:33 | P.PNIM_ITS ---
Subjective Subjective Date of Service: 10/27/20 Interval History: Ongoing L homonymous hemianopsia C/o headache, suspects from not drinking caffeine No arm/leg weakness Review of Systems Review of Systems: Yes all other systems are reviewed and are negative Physical Exam Vital Signs: Vital Signs: Last Vital Signs Temp 99.1 F 10/27/20 11:23 Pulse 90 10/27/20 11:23 Resp 15 10/27/20 11:23 BP 122/78 10/27/20 11:23 Pulse Ox 99 10/27/20 11:23 Body Mass Index 22.7 Gen: in no acute distress HEENT: sclera anicteric, moist mucus membranes Neck: supple Lungs: clear to auscultation bilaterally Heart: regular rate and rhythm, no murmurs Abd: soft, non-tender, non-distended Ext: no edema Skin: warm/well-perfused Neuro: alert and oriented x3, L homonymous hemianopsia Psych: appropriate affect Objective Data Active Medications Acetaminophen (Acetaminophen 325 Mg Tablet) 650 mg PO Q6H PRN PRN Reason: Pain, Mild (Pain Scale 1-3) Acetaminophen/Butalbital/Caffeine (Butalb/Acetamin/Caff 50/325/40 Tablet) 1 tab PO Q4H PRN PRN Reason: headache Aspirin (Aspirin Enteric Coated 81 Mg Tablet.) 81 mg PO DAILY [facility] Last Admin: 10/27/20 10:42 Dose: 81 mg Documented by: LUCÍA Atorvastatin Calcium (Atorvastatin Calcium 80 Mg Tablet) 80 mg PO DAILY [facility] Last Admin: 10/27/20 10:41 Dose: 80 mg Documented by: LUCÍA Enoxaparin Sodium (Enoxaparin Sodium 40 Mg/0.4 Ml Syringe) 40 mg SUBCUT Q24H [facility] Melatonin (Melatonin 3 Mg Tablet) 6 mg PO BEDTIME PRN PRN Reason: Insomnia Pharmacy Consult (Consult Rx Perform Med Rec) 1 each MISCELLANE ONCE PRN PRN Reason: Consult order Senna (Sennosides 8.6 Mg Tablet) 17.2 mg PO BEDTIME PRN PRN Reason: Constipation Sodium Chloride (0.9 % Sodium Chloride Flush 3 Ml Syringe) 3 ml IVFLUSH QSHIFT [facility] Last Admin: 10/27/20 09:03 Dose: 3 ml Documented by: HO.SCOC Labs CBC & Chem 7: 10/27/20 07:18 10/27/20 07:18 Labs: Laboratory Results - last 24 hr 10/26/20 10/26/20 10/26/20 16:47 16:47 16:47 MCV 88.3 MCH 30.2 MCHC 34.2 RDW 12.5 Plt Count 197 MPV 10.8 Immature Gran % (Auto) 0.3 Neut % (Auto) 65.7 Lymph % (Auto) 24.5 Peach % (Auto) 7.9 Eos % (Auto) 1.3 Baso % (Auto) 0.3 Lymph # (Auto) 2.2 Peach # (Auto) 0.7 Eos # (Auto) 0.1 Baso # (Auto) 0.0 Abs Immat Gran (auto) 0.03 Absolute Neuts (auto) 5.8 Absolute Nucleated RBC 0.000 Nucleated RBC % (auto) 0.0 ESR Hold Purple Top PT 11.5 INR 1.0 APTT Anion Gap 15 Estim Creat Clear Calc 123.8 Estimated GFR > 60 Random Glucose 88 Estimat Average Glucose Hemoglobin A1c % Calcium 9.6 Magnesium 2.4 Total Bilirubin 0.5 AST 23 ALT 18 Alkaline Phosphatase 69 C-Reactive Protein 0.33 Total Protein 7.2 Albumin 4.8 Triglycerides Cholesterol LDL Cholesterol, Calc HDL Cholesterol Urine Color Urine Appearance Urine pH Ur Specific [place] Urine Protein Urine Glucose (UA) Urine Ketones Urine Blood Urine Nitrite Ur Leukocyte Esterase COVID-19 ([facility]) COVID-19 Clin Com 10/26/20 10/26/20 10/26/20 16:47 16:47 16:47 MCV MCH MCHC RDW Plt Count MPV Immature Gran % (Auto) Neut % (Auto) Lymph % (Auto) Peach % (Auto) Eos % (Auto) Baso % (Auto) Lymph # (Auto) Peach # (Auto) Eos # (Auto) Baso # (Auto) Abs Immat Gran (auto) Absolute Neuts (auto) Absolute Nucleated RBC Nucleated RBC % (auto) ESR 2 Hold Purple Top SEE NOTE PT INR APTT 46.1 H Anion Gap Estim Creat Clear Calc Estimated GFR Random Glucose Estimat Average Glucose Hemoglobin A1c % Calcium Magnesium Total Bilirubin AST ALT Alkaline Phosphatase C-Reactive Protein Total Protein Albumin Triglycerides Cholesterol LDL Cholesterol, Calc HDL Cholesterol Urine Color Urine Appearance Urine pH Ur Specific [place] Urine Protein Urine Glucose (UA) Urine Ketones Urine Blood Urine Nitrite Ur Leukocyte Esterase COVID-19 ([facility]) COVID-19 Clin Com 10/26/20 10/26/20 10/27/20 17:28 19:53 07:18 MCV 88.3 MCH 30.0 MCHC 33.9 RDW 12.3 Plt Count 185 MPV 10.7 Immature Gran % (Auto) 0.5 H Neut % (Auto) 68.3 Lymph % (Auto) 21.5 Peach % (Auto) 8.0 Eos % (Auto) 1.5 Baso % (Auto) 0.2 Lymph # (Auto) 1.9 Peach # (Auto) 0.7 Eos # (Auto) 0.1 Baso # (Auto) 0.0 Abs Immat Gran (auto) 0.04 H Absolute Neuts (auto) 5.9 Absolute Nucleated RBC 0.000 Nucleated RBC % (auto) 0.0 ESR Hold Purple Top PT INR APTT Anion Gap Estim Creat Clear Calc Estimated GFR Random Glucose Estimat Average Glucose Hemoglobin A1c % Calcium Magnesium Total Bilirubin AST ALT Alkaline Phosphatase C-Reactive Protein Total Protein Albumin Triglycerides Cholesterol LDL Cholesterol, Calc HDL Cholesterol Urine Color YELLOW Urine Appearance CLEAR Urine pH 6.0 Ur Specific [place] <= 1.005 Urine Protein NEG Urine Glucose (UA) NEG Urine Ketones NEG Urine Blood NEG Urine Nitrite NEG Ur Leukocyte Esterase NEG COVID-19 ([facility]) Negative COVID-19 [employer] Com See Note 10/27/20 10/27/20 10/27/20 07:18 07:18 07:18 MCV MCH MCHC RDW Plt Count MPV Immature Gran % (Auto) Neut % (Auto) Lymph % (Auto) Peach % (Auto) Eos % (Auto) Baso % (Auto) Lymph # (Auto) Peach # (Auto) Eos # (Auto) Baso # (Auto) Abs Immat Gran (auto) Absolute Neuts (auto) Absolute Nucleated RBC Nucleated RBC % (auto) ESR Hold Purple Top PT INR APTT Anion Gap 12 Estim Creat Clear Calc 128.8 Estimated GFR > 60 Random Glucose 93 Estimat Average Glucose 97 Hemoglobin A1c % 5.0 Calcium 9.3 Magnesium Total Bilirubin AST ALT Alkaline Phosphatase C-Reactive Protein Total Protein Albumin Triglycerides 128 Cholesterol 172 LDL Cholesterol, Calc 111 HDL Cholesterol 36 Urine Color Urine Appearance Urine pH Ur Specific [place] Urine Protein Urine Glucose (UA) Urine Ketones Urine Blood Urine Nitrite Ur Leukocyte Esterase COVID-19 ([facility]) COVID-19 Clin Com Assessment and Plan (1) Cerebrovascular accident involving posterior circulation: Status: Acute Assessment and Plan: hospital d#2 39yo M with hx Lyme/Marie's palsy sent in by pharmacology teacher with left homonymous hemianopsia and found to have occipital CVA # occipital CVA - presented out of tPA window - now large vessel occlusion on CTA - TTE with bubble - telemetry - given young age, will pursue thrombophilia workup - ASA + atorvastatin - Neurology consult # VTE ppx - LMWH Quality Stroke Does the patient have a stroke diagnosis?: No VTE Prior VTE?: No VTE Risk Level:: Medical - moderate - high VTE Device Contraindication: N/A - Device Ordered VTE Drug Contraindication: Treatment Not Indicated
[2020-10-27] MEDS: Enoxaparin Sodium 40 MG/0.4 ML SYRINGE SUBCUT (16:34)
--- NOTE | 2020-10-27 17:38 | MHC.STROKE ---
Addendum entered by Jocelyn Barker RN 11/02/20 10:46: LATE ENTRY FOR 10/26/20 1759: VERIFIED THAT PATIENT PASSED NURSING SWALLOW SCREEN PRIOR TO PO ASPIRIN. Addendum entered by Jocelyn Barker RN 10/30/20 15:20: I accompanied patient to minor surgery for the placement of the [employer] LINQ implantable monitor device. He tolerated the procedure well, although he did get slightly lightheaded which passed. I did reinforce the education that the [employer] Sales Promotion Representative provided. The was also present during the education. Dr. Zambrano instructed the patient to follow up with Dr. Mesa in the office. The patient cannot shower for 3 days, and he needs a follow up appointment with Cardiology. Dr Manrique advance his diet and I did give him a tray. Addendum entered by Jocelyn Barker RN 10/30/20 12:35: I met with the patient today while Dr. Mesa was rounding. Patient is having the LINQ implantable monitor inserted today at 2 pm. The hypercoag work-up is also pending and will still take several days but will not interfere with this procedure according to Dr. Mesa. The patient has been NPO. I reinforced stroke education with Jose. We reviewed images of his MRI scan and the location of the stroke. He is interested in any rehab to assist with his vision. He said that his will be in and I will meet with her as well. Original Note: I met with the patient earlier today and rounded again this afternoon. I spent an hour with him discussing his history and presenting symptoms. Onset of left sided vision loss and dizziness was 10/25/20 at 2130. It was abrupt. He also c/o a Headache around the same time. He came to the [facility] from the advice of his eye doctor. MRI confirmed + stroke right occipital area. Concern for PFO, echo with bubble ordered. 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 I reviewed the s&s of stroke and informed him to let the nurse know if any symptoms return. He said he had a ?TIA 3-4 years ago and went to [facility] for a workup, he had an EEG, MRI, Echo, no acute findings. 3 weeks later he found a tick and was treated for Lyme. He has a PMH of Migraines, Anxiety, Sleep Apnea, IBS s/p bowel obstruction surgery, + family hx for heart disease/. He takes in extra caffeine up to 300mg prior to his work-outs. Dr Paez rounded also, he said prognosis is good. the patient can have caffeine but not to that extreme. I will ask the umbrella frame maker to see him tomorrow. I will reinforce to cut back on caffeine. No hx of drugs. Hypercoagulation workup done. I will continue to follow and see him tomorrow.
--- NOTE | 2020-10-27 18:05 | P.CNNE_ITS ---
History of Present Illness Data of Consult Service Date: 10/27/20 Primary Care Provider: Santhosh Blancas MD [facility] Reason for consult: Left-sided visual disturbance with severe headache This is a 39-year-old generally healthy man, word a one-year history of panic disorder, vertebral bowel syndrome, possible Lyme disease treated a year ago at [facility] and a history of right periorbital migraine headaches that occur irregularly, usually relieved by taking Advil and caffeine. The patient usually does not have neurological deficits with his migraines. On 10/25/20 around 9 PM he was taking his dog out to the walk and started to feel better onset of a headache on the right side and then noticed visual disturbance in his left visual field where he started to see lines and blotches. He came on took something for sleep and went to sleep and when he woke up around 5:30 in the morning he had persistent left-sided visual disturbance and a severe generalized headache. There was no nausea, vomiting, he had some photophobia. He went to the eye doctor and was found to have a left homonymous hemianopsia and was referred to the emergency room. He had a CAT scan and MRI which have confirmed an acute ischemic infarct in in the right inferior medial temporal lobe and a smaller infarct in the left inferior medial lobe and the posterior cerebral distribution. His CTA was completely normal with no evidence of vascular disease in his neck or intracranial circulation. His visual symptoms fluctuates but are almost persistent on the left side. Mike has no confusion or memory problems lateralized weakness or numbness. Never had a stroke or a complicated migraine before. Not known to have any heart problems. Hiis father has a history of migraines. Medications at home include citalopram, dic yclomine, and Advil and he takes excessive amounts of caffeine for working out. Review of Systems Review of Systems: Constitutional : No Weight loss, No Fever, No Chills, No Fatigue, No Malaise ENT/Mouth : No sore throat, No Rhinorrhea Eyes: No Eye Pain, No Swelling, No Redness, pos vision loss Cardiovascular : No Chest Pain, No SOB, No Dyspnea on Exertion, No Orthopnea, No Edema, No Palpitations Respiratory : No Cough, No Sputum, No Wheezing Gastrointestinal : No Nausea, No Vomiting, No Diarrhea, No Constipation, No abdominal Pain, No Hematochezia, No Melena Genitourinary : No Dysuria, No Urinary Frequency, No Hematuria, Musculoskeletal : No joint pain, No Myalgias, No Joint Swelling Skin : No Skin Lesions, No rash Neuro : No Weakness, No Numbness, No Dizziness, pos Headache Psych : No Anxiety/Panic, No Depression Heme/Lymph: No Bruising, No Bleeding,No Lymphadenopathy Endocrine : No Polyuria, No Polydipsia All other systems reviewed and are negative Yes all other systems are reviewed and are negative [facility] Past Medical History Medical History Anxiety TIA (transient ischemic attack) Social History Social History Household Members: Significant Other Housing: House Do you presently have visiting nurse or other home services: No Alcohol intake: never Patient Tobacco Use Status: Never used Tobacco Smoked in Last 30 Days: No Patient Interested in Nicotine Replacement: No Patient Given Instructions on How to Stop Smoking: No Second Hand Smoke Exposure: No Use of substances other than those prescribed or required for medical reasons: No Currently Displaying Signs/Symptoms of Drug Intoxication Withdrawal: No Any prior treatment program specific to substance use: No Have you been hit, kicked, punched, or otherwise hurt by someone within the past year? If so, by whom?: No Do you feel safe in your current relationship?: Yes Is there a partner from a previous relationship who is making you feel unsafe now?: No Are you made to feel afraid or neglected: No Advance Directives: No Advance Directives Information Provided: No Do you have thoughts of harming others: None Do you have a plan to hurt others: No Plan Recently lost weight without trying: No Meds Allergies Allergy/AdvReac Type Severity Reaction Status Date / Time No Known Allergies Allergy Verified 10/26/20 15:28 Active Medications: Current Medications Generic Name Dose Route Start Last Admin Trade Name Freq PRN Reason Stop Dose Admin Acetaminophen 650 mg 10/26/20 20:31 Acetaminophen 325 Mg Tablet PO Q6H PRN Pain, Mild (Pain Scale 1-3) Acetaminophen/Butalbital/Caffeine 1 tab 10/27/20 10:06 Butalb/Acetamin/Caff 50/325/40 Tablet PO Q4H PRN headache Aspirin 81 mg 10/27/20 09:00 10/27/20 10:42 Aspirin Enteric Coated 81 Mg Tablet. PO 81 mg DAILY JOSE Administration Atorvastatin Calcium 80 mg 10/27/20 09:00 10/27/20 10:41 Atorvastatin Calcium 80 Mg Tablet PO 80 mg DAILY JOSE Administration Enoxaparin Sodium 40 mg 10/27/20 15:00 10/27/20 16:34 Enoxaparin Sodium 40 Mg/0.4 Ml Syringe SUBCUT 40 mg Q24H JOSE Administration Melatonin 6 mg 10/26/20 20:31 Melatonin 3 Mg Tablet PO BEDTIME PRN Insomnia Pharmacy Consult 1 each 10/26/20 17:10 Consult Rx Perform Med Rec MISCELLANE ONCE PRN Consult order Senna 17.2 mg 10/26/20 20:31 Sennosides 8.6 Mg Tablet PO BEDTIME PRN Constipation Sodium Chloride 3 ml 10/27/20 00:00 10/27/20 16:35 0.9 % Sodium Chloride Flush 3 Ml Syringe IVFLUSH 3 ml QSHIFT JOSE Administration Home Medications Medication Instructions Recorded Confirmed Last Taken Type citalopram 10 mg tablet 1 tab PO BEDTIME 10/26/20 10/26/20 10/25/20 History dicyclomine 10 mg capsule 1 cap PO TID PRN 10/26/20 10/26/20 10/26/20 History Physical Exam Vital Signs: Vital Signs: Last Vital Signs Temp 97.7 F 10/27/20 15:31 Pulse 78 10/27/20 15:31 Resp 19 10/27/20 15:31 BP 114/63 10/27/20 15:31 Pulse Ox 98 10/27/20 15:31 Body Mass Index 22.7 Neuro: Other: He has a complete left homonymous hemianopsia, otherwise his neurological examination is entirely normal Cranial nerves: Yes CN's II-XII intact bilaterally (Left homonomous hemianopsia) Results Labs CBC & Chem 7: 10/27/20 07:18 10/27/20 07:18 Labs: Short CBC 10/27/20 Range/Units 07:18 WBC 8.7 (4.8-10.8) X10*3/uL Hgb 16.7 (14.0-18.0) g/dl Hct 49.2 (42-52) % Plt Count 185 (160-400) X10*3/uL BMP 10/27/20 07:18 Sodium 137 Potassium 4.6 Chloride 103 Carbon Dioxide 27 BUN 11 Creatinine 0.73 Calcium 9.3 Urine 10/26/20 Range/Units 19:53 Urine Color YELLOW Urine Appearance CLEAR Urine pH 6.0 (5.0-8.0) Ur Specific [place] <= 1.005 (1.005-1.025) Urine Protein NEG (NEG-TRACE) MG/DL Urine Glucose (UA) NEG (NEG) MG/DL Assessment and Plan (1) Cerebrovascular accident involving posterior circulation: Status: Acute He has an acute ischemic infarct in the posterior cerebral distribution primarily affecting the right medial temporal lobe inferiorly and portion of the occipital lobe parasagittal and a smaller medial temporal infarct on the left side. Likely etiology embolization from a cardiac source such as PFO or intermittent atrial fibrillation. Other possibility is a migraine complication with a stroke from a complicated migraine. Would recommend echocardiogram with bubble study and possible KAYE. Started him on aspirin and Plavix for now. If the cardiac abnormalities found he would need to be on anticoagulants. Workup for hypercoagulable state is spending. hospital d#2 39yo M with hx Lyme/Marie's palsy sent in by devops engineer with left homonymous hemianopsia and found to have occipital CVA # occipital CVA - presented out of tPA window - now large vessel occlusion on CTA - TTE with bubble - telemetry - given young age, will pursue thrombophilia workup - ASA + atorvastatin - Neurology consult # VTE ppx - LMWH Procedures Date of Service Date of Service: 10/27/20
[2020-10-28 03:21] VITALS: BP 115/66; PULSE 76; RESP 16; TEMP 36.7; O2SAT 98
[2020-10-28] MEDS: Butalb/Acetamin/Caff 50/325/40 TABLET 1 TAB PO ×2 (06:32→16:05)
[2020-10-28 07:28] VITALS: BP 115/69; PULSE 75; RESP 18; TEMP 36.9; O2SAT 97
--- NOTE | 2020-10-28 07:30 | CA_ITS ---
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 - Normal right ventricular cavity size and systolic function. - There is no evidence of interatrial shunt by color Doppler and contrast. Findings Left Ventricle Normal left ventricular size, thickness, systolic function, and wall motion. The visually estimated ejection fraction is between 55-60%. Diastolic function is normal for age. Right Ventricle Normal right ventricular cavity size and systolic function. Atria Both atria are normal in size. There is no evidence of interatrial shunt by color Doppler and contrast. Aortic Valve Normal aortic valve structure and function. There is no aortic valve stenosis. There is no aortic valve regurgitation. Mitral Valve Normal mitral valve structure and function. There is no mitral valve regurgitation. There is no mitral valve stenosis. Pulmonic Valve The pulmonic valve is likely normal. Tricuspid Valve Normal tricuspid valve structure and function. There is trace tricuspid valve regurgitation. Normal right atrial pressure. There is no evidence of pulmonary hypertension. Great Vessels The pulmonary artery was not well visualized. Venous The inferior vena cava is normal in size and collapses greater than 50% with inspiration. Pericardium/Pleural There is no evidence of pericardial effusion. Prior Study Comparison No prior study available for comparison. Measurements 2D Linear Measurements IVSd: 0.91 0.6-0.9/0.6-1.0 cm LVIDd: 4.28 3.9-5.3/4.2-5.9 cm LVIDd Index: 2.43 2.4-3.2/2.2-3.1 cm/m2 LVIDs: 2.27 2.0-3.6 cm LVPWd: 0.82 0.7-1.1 cm Ao Root: 3.20 2.1-3.5 cm LA Diam: 3.40 2.7-3.8/3.0-4.0 cm LAIDs Index: 1.93 1.5-2.3 cm/m2 LV Mass: 144.68 67-162/88-224 g LV Mass Index: 82.20 43-95/49-115 g/m2 LVOT Diam: 2.30 3.0+(-)1.3 cm Mitral Valve MV Pk E: 0.74 MV PK A: 0.69 MV Decel Time: 164.00 E/A: 1.10 E'Lateral: 14.30 E'Medial: 8.49 E/E' Med: 8.70 E/E' Lat: 5.20 PHT: 48.00 MVA PHT: 4.58 Decel [place]: 4.52 Aortic Valve AoV Pk Murtaza: 1.12 AoV Mn Murtaza: 0.76 AoV VTI: 0.26 AoV Pk Grad: 5.00 Aov Mn Grad: 3.00 ZAY Cont.VTI: 2.83 LVOT LVOT Pk Murtaza: 0.95 LVOT Mn [place]za: 0.77 LVOT VTI: 0.18 LVOT Pk Grad: 4.00 LVOT Mn Grad: 3.00 LVOT Diam: 2.30 LVOT Area: 4.15 Diastolic Function MV Pk E: 0.74 MV Pk A: 0.69 E/A: 1.10 E'Medial: 8.49 E/E' Med: 8.70 E' Laterial: 14.30 E/E' Lat: 5.20 Tricuspid Valve TR Pk Murtaza: 2.03 TR Pk Grad: 16.00 RA Press: 3.00 RVSP: 19.00 Great Vessels Aorta Ao Root-2D: 3.20 2.0-3.7 cm Ao Asc: 3.10 2.1-3.4 cm Pulmonary Valve PV Pk Murtaza: 1.13 Peak PV Grad: 5.00 Updated in Other Vendor System with Status of Final Kendall Mesa MD electronically signed on 10/29/2020 12:33:34 PM with status of Final
--- NOTE | 2020-10-28 09:41 | MHC.CM.PN ---
pt lives c his spouse in their home. he reports that he is independent in his care , he drives a car and works a job. pt denies the need for vna at dc. additionally, PT and OT recomendations are for outpatient svcs. dc plan is home no svcs. cm to cont. to follow.
[2020-10-28 10:31] VITALS: BP 115/69; PULSE 75; O2SAT 97
[2020-10-28] MEDS: Atorvastatin Calcium 80 MG TABLET PO (10:35)
[2020-10-28] MEDS: Aspirin Enteric Coated 81 MG TABLET.DR PO (10:35)
[2020-10-28] MEDS: 0.9 % Sodium Chloride Flush 3 ML SYRINGE IVFLUSH ×2 (10:37→16:04)
[2020-10-28 12:00] VITALS: BP 108/65; PULSE 81; TEMP 37.3; O2SAT 97
[2020-10-28] MEDS: Dicyclomine HCl 10 MG CAPSULE PO (13:03)
[2020-10-28] MEDS: Enoxaparin Sodium 40 MG/0.4 ML SYRINGE SUBCUT (14:15)
--- NOTE | 2020-10-28 15:01 | HO.PM.IMPN ---
Subjective Subjective Date of Service: 10/28/20 Interval History: Still has L-sided visual field deficit GARCIA improved Review of Systems Review of Systems: Yes all other systems are reviewed and are negative Physical Exam Vital Signs: Vital Signs: Last Vital Signs Temp 99.1 F 10/28/20 12:00 Pulse 81 10/28/20 12:00 Resp 18 10/28/20 07:28 BP 108/65 10/28/20 12:00 Pulse Ox 97 10/28/20 12:00 Body Mass Index 22.7 Gen: in no acute distress HEENT: sclera anicteric, moist mucus membranes Neck: supple Lungs: clear to auscultation bilaterally Heart: regular rate and rhythm, no murmurs Abd: soft, non-tender, non-distended Ext: no edema Skin: warm/well-perfused Neuro: alert and oriented x3, L homonymous hemianopsia Psych: appropriate affect Objective Data Active Medications Acetaminophen (Acetaminophen 325 Mg Tablet) 650 mg PO Q6H PRN PRN Reason: Pain, Mild (Pain Scale 1-3) Acetaminophen/Butalbital/Caffeine (Butalb/Acetamin/Caff 50/325/40 Tablet) 1 tab PO Q4H PRN PRN Reason: headache Last Admin: 10/28/20 06:32 Dose: 1 tab Documented by: YAZ Aspirin (Aspirin Enteric Coated 81 Mg Tablet.) 81 mg PO DAILY [facility] Last Admin: 10/28/20 10:35 Dose: 81 mg Documented by: TAL Atorvastatin Calcium (Atorvastatin Calcium 80 Mg Tablet) 80 mg PO DAILY [facility] Last Admin: 10/28/20 10:35 Dose: 80 mg Documented by: TAL Dicyclomine HCl (Dicyclomine Hcl 10 Mg Capsule) 10 mg PO TID PRN PRN Reason: Gastrointestinal Spasms Or Cramping Last Admin: 10/28/20 13:03 Dose: 10 mg Documented by: TAL Enoxaparin Sodium (Enoxaparin Sodium 40 Mg/0.4 Ml Syringe) 40 mg SUBCUT Q24H [facility] Last Admin: 10/28/20 14:15 Dose: 40 mg Documented by: TAL Melatonin (Melatonin 3 Mg Tablet) 6 mg PO BEDTIME PRN PRN Reason: Insomnia Pt Own Citalopram 10 (Mg) 1 each PO DAILY [facility] Pharmacy Consult (Consult Rx Perform Med Rec) 1 each MISCELLANE ONCE PRN PRN Reason: Consult order Senna (Sennosides 8.6 Mg Tablet) 17.2 mg PO BEDTIME PRN PRN Reason: Constipation Sodium Chloride (0.9 % Sodium Chloride Flush 3 Ml Syringe) 3 ml IVFLUSH QSHIFT [facility] Last Admin: 10/28/20 10:37 Dose: 3 ml Documented by: TAL Labs CBC & Chem 7: 10/27/20 07:18 10/27/20 07:18 Labs: Laboratory Results WBC 8.7 X10*3/uL (4.8-10.8) 10/27/20 07:18 RBC 5.57 X10*6/uL (4.60-5.80) 10/27/20 07:18 Hgb 16.7 g/dl (14.0-18.0) 10/27/20 07:18 Hct 49.2 % (42-52) 10/27/20 07:18 MCV 88.3 fL (80-98) 10/27/20 07:18 MCH 30.0 pg (27.0-33.0) 10/27/20 07:18 MCHC 33.9 g/dl (31.0-36.0) 10/27/20 07:18 RDW 12.3 % (11.0-16.0) 10/27/20 07:18 Plt Count 185 X10*3/uL (160-400) 10/27/20 07:18 MPV 10.7 fL (9.4-12.4) 10/27/20 07:18 Immature Gran % (Auto) 0.5 % (0.0-0.4) H 10/27/20 07:18 Neut % (Auto) 68.3 % (45-73) 10/27/20 07:18 Lymph % (Auto) 21.5 % (20-40) 10/27/20 07:18 Coffee % (Auto) 8.0 % (2-11) 10/27/20 07:18 Eos % (Auto) 1.5 % (0-4) 10/27/20 07:18 Baso % (Auto) 0.2 % (0-2) 10/27/20 07:18 Lymph # (Auto) 1.9 X10*3/uL (1.2-4.9) 10/27/20 07:18 Coffee # (Auto) 0.7 X10*3/uL (0.1-1.2) 10/27/20 07:18 Eos # (Auto) 0.1 X10*3/uL (0.0-0.4) 10/27/20 07:18 Baso # (Auto) 0.0 X10*3/uL (0.0-0.2) 10/27/20 07:18 Abs Immat Gran (auto) 0.04 X10*3/uL (0.00-0.03) H 10/27/20 07:18 Absolute Neuts (auto) 5.9 X10*3/uL (2.0-8.3) 10/27/20 07:18 Absolute Nucleated RBC 0.000 X10*3/uL (0.0-0.012) 10/27/20 07:18 Nucleated RBC % (auto) 0.0 /100WBC (0.0-0.2) 10/27/20 07:18 ESR 2 MM/HR (0-15) 10/26/20 16:47 Hold Purple Top SEE NOTE 10/26/20 16:47 PT 11.5 SEC (9.9-13.0) 10/26/20 16:47 INR 1.0 (0.9-1.1) 10/26/20 16:47 APTT 46.1 SEC (24.1-38.0) H 10/26/20 16:47 Sodium 137 mmol/L (135-145) 10/27/20 07:18 Potassium 4.6 mmol/L (3.3-5.1) 10/27/20 07:18 Chloride 103 mmol/L (96-108) 10/27/20 07:18 Carbon Dioxide 27 mmol/L (22-29) 10/27/20 07:18 Anion Gap 12 (12-20) 10/27/20 07:18 BUN 11 mg/dL (9-16) 10/27/20 07:18 Creatinine 0.73 mg/dL (0.5-1.4) 10/27/20 07:18 Estim Creat Clear Calc 128.8 10/27/20 07:18 Estimated GFR > 60 10/27/20 07:18 Random Glucose 93 mg/dL (60-115) 10/27/20 07:18 Estimat Average Glucose 97 mg/dL 10/27/20 07:18 Hemoglobin A1c % 5.0 % 10/27/20 07:18 Calcium 9.3 mg/dL (8.4-10.2) 10/27/20 07:18 Magnesium 2.4 mg/dL (1.6-2.6) 10/26/20 16:47 Total Bilirubin 0.5 mg/dL (0.0-1.0) 10/26/20 16:47 AST 23 U/L (5-37) 10/26/20 16:47 ALT 18 U/L (0-40) 10/26/20 16:47 Alkaline Phosphatase 69 U/L (39-117) 10/26/20 16:47 C-Reactive Protein 0.33 mg/dL (< or = 0.50) 10/26/20 16:47 Total Protein 7.2 g/dL (6.5-8.0) 10/26/20 16:47 Albumin 4.8 g/dL (3.5-5.0) 10/26/20 16:47 Triglycerides 128 mg/dL 10/27/20 07:18 Cholesterol 172 mg/dL 10/27/20 07:18 LDL Cholesterol, Calc 111 mg/dl 10/27/20 07:18 HDL Cholesterol 36 mg/dL 10/27/20 07:18 Urine Color YELLOW 10/26/20 19:53 Urine Appearance CLEAR 10/26/20 19:53 Urine pH 6.0 (5.0-8.0) 10/26/20 19:53 Ur Specific [place] <= 1.005 (1.005-1.025) 10/26/20 19:53 Urine Protein NEG MG/DL (NEG-TRACE) 10/26/20 19:53 Urine Glucose (UA) NEG MG/DL (NEG) 10/26/20 19:53 Urine Ketones NEG MG/DL (NEG) 10/26/20 19:53 Urine Blood NEG (NEG) 10/26/20 19:53 Urine Nitrite NEG (NEG) 10/26/20 19:53 Ur Leukocyte Esterase NEG (NEG) 10/26/20 19:53 COVID-19 ([place]) Negative (Negative) 10/26/20 17:28 COVID-19 Clin Com See Note 10/26/20 17:28 Impressions Brain MRI 10/26/20 15:31 IMPRESSION: 1. Regions of restricted diffusion involving the right greater than left SCHEDULING AGENT territories. No evidence of hemorrhagic conversion. This change may represent sequela of developing acute ischemic insults. However, recommend correlation with blood pressures as this could also represent a slightly atypical appearance of posterior reversible encephalopathy syndrome (PRES). Potential prior seizure activity should also be taken into account has some of these changes could be seen in the postictal state. The distribution would be slightly atypical for infectious/inflammatory encephalitis but this should also be considered in the appropriate clinical setting. 2. Beyond this acute-appearing change, there also appears to be scattered nonspecific mild white matter changes throughout. Mild generalized cerebral volume loss most notably affecting the cerebellum. Head/Neck CTA 10/26/20 16:57 IMPRESSION: Redemonstrated regions of lost burdick-white matter differentiation involving the bilateral SCHEDULING AGENT territories including the right greater than left mesial temporal lobes and parasagittal right occipital lobe. No evidence of hemorrhagic conversion. This change may represent sequela of developing acute ischemic insults. However, recommend correlation with blood pressures as this could also represent a slightly atypical appearance of posterior reversible encephalopathy syndrome (PRES). Potential prior seizure activity should also be taken into account has some of these changes could be seen in the postictal state. The distribution would be slightly atypical for infectious/inflammatory encephalitis but this should also be considered in the appropriate clinical setting. Normal CTA head and neck. Head CT 10/27/20 07:15 IMPRESSION: No hemorrhagic conversion within previously observed areas of hypoattenuation and loss of burdick-white differentiation in the SCHEDULING AGENT territories. No new intracranial pathology compared to 10/26/2020. 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
[2020-10-28 16:00] VITALS: BP 113/65; PULSE 80; RESP 18; TEMP 37.3; O2SAT 98
[2020-10-28] MEDS: Clopidogrel Bisulfate 75 MG TABLET PO (16:04)
--- NOTE | 2020-10-28 16:20 | MHC.CLN ---
NUTRITION CONSULT CONSULT FOR EXCESS CAFFEINE USE. PATIENT REPORTED USUAL CAFFEINE INTAKE IS THAT DRINKS TWO CUP OF COFFEE, ABOUT 4 HOURS APART, IN MORNING. TAKES 200 MG CAFFEINE PRIOR TO WORK OUT; DOES NOT WORK OUT DAILY. PROVIDED WITH HANDOUT OF CAFFEINE AMOUNTS IN SOME BEVERAGES AND FOODS. PATIENT DRINKS NO CAFFEINE SODA IF CONSUMED. DOES NOT EAT MUCH CHOCOLATE. LIMITING COFFEE TO ONE CUP DURING ADMISSION PER MD RECOMMENDATION.
--- NOTE | 2020-10-28 16:29 | P.PNNE_ITS ---
Subjective Subjective Date of Service: 10/28/20 Interval History: L-sided visual field deficit unchanged GARCIA improved Echocardiogram report pending Critical Care Time (minutes): 0 Physical Exam Vital Signs: Vital Signs: Last Vital Signs Temp 99.1 F 10/28/20 12:00 Pulse 81 10/28/20 12:00 Resp 18 10/28/20 07:28 BP 108/65 10/28/20 12:00 Pulse Ox 97 10/28/20 12:00 Body Mass Index 22.7 Neuro: Other: He has a complete left homonymous hemianopsia, otherwise his neurological examination is entirely normal Cranial nerves: Yes CN's II-XII intact bilaterally (Left homonomous hemianopsia) Objective Data Labs CBC & Chem 7: 10/27/20 07:18 10/27/20 07:18 Progress Note: A&P Assessment and plan (1) Cerebrovascular accident involving posterior circulation: Status: Acute Assessment and Plan: Recom. Cardiology consult for evaluation for KAYE and Implanted LINQ for detection of paroxysmal A fib Fall Risk Details Current Medications: Current Medications Generic Name Dose Route Start Last Admin Trade Name Freq PRN Reason Stop Dose Admin Acetaminophen 650 mg 10/26/20 20:31 Acetaminophen 325 Mg Tablet PO Q6H PRN Pain, Mild (Pain Scale 1-3) Acetaminophen/Butalbital/Caffeine 1 tab 10/27/20 10:06 10/28/20 16:05 Butalb/Acetamin/Caff 50/325/40 Tablet PO 1 tab Q4H PRN Administration headache Aspirin 81 mg 10/27/20 09:00 10/28/20 10:35 Aspirin Enteric Coated 81 Mg Tablet. PO 81 mg DAILY JOSE Administration Atorvastatin Calcium 80 mg 10/27/20 09:00 10/28/20 10:35 Atorvastatin Calcium 80 Mg Tablet PO 80 mg DAILY JOSE Administration Clopidogrel Bisulfate 75 mg 10/28/20 15:05 10/28/20 16:04 Clopidogrel Bisulfate 75 Mg Tablet PO 75 mg DAILY JOSE Administration Dicyclomine HCl 10 mg 10/28/20 10:32 10/28/20 13:03 Dicyclomine Hcl 10 Mg Capsule PO 10 mg TID PRN Administration Gastrointestinal Spasms Or Cramping Enoxaparin Sodium 40 mg 10/27/20 15:00 10/28/20 14:15 Enoxaparin Sodium 40 Mg/0.4 Ml Syringe SUBCUT 40 mg Q24H JOSE Administration Melatonin 6 mg 10/26/20 20:31 Melatonin 3 Mg Tablet PO BEDTIME PRN Insomnia Pt Own Citalopram 10 1 each 10/29/20 09:00 Mg PO DAILY [facility] Pharmacy Consult 1 each 10/26/20 17:10 Consult Rx Perform Med Rec MISCELLANE ONCE PRN Consult order Senna 17.2 mg 10/26/20 20:31 Sennosides 8.6 Mg Tablet PO BEDTIME PRN Constipation Sodium Chloride 3 ml 10/27/20 00:00 10/28/20 16:04 0.9 % Sodium Chloride Flush 3 Ml Syringe IVFLUSH 3 ml QSHIFT JOSE Administration Time Spent With Patient Time: Total time spent is greater than 50% in coordination of care (as documented) at patient's floor/unit and/or counseling patient: Time with patient: 15 - 24 minutes Procedures Date of Service Date of Service: 10/28/20 Quality Stroke Does the patient have a stroke diagnosis?: No VTE Prior VTE?: No VTE Risk Level:: Medical - moderate - high VTE Device Contraindication: N/A - Device Ordered VTE Drug Contraindication: Treatment Not Indicated
[2020-10-28 20:00] VITALS: BP 126/69; PULSE 77; RESP 18; TEMP 37; O2SAT 96
[2020-10-29] VITALS: BP 107/58; PULSE 76; RESP 17; TEMP 37; O2SAT 97
[2020-10-29] MEDS: 0.9 % Sodium Chloride Flush 3 ML SYRINGE IVFLUSH ×3 (01:16→17:16)
[2020-10-29 04:00] VITALS: BP 103/61; PULSE 79; RESP 19; TEMP 36.7; O2SAT 98
[2020-10-29] MEDS: Butalb/Acetamin/Caff 50/325/40 TABLET 1 TAB PO (04:27)
[2020-10-29 07:23] VITALS: BP 114/64; PULSE 74; RESP 16; TEMP 37.2; O2SAT 98
--- NOTE | 2020-10-29 08:29 | P.PNIM_ITS ---
Subjective Subjective Date of Service: 10/29/20 Interval History: still c/o visual difficulties GARCIA much improved since resuming SSRI Review of Systems Review of Systems: Yes all other systems are reviewed and are negative Physical Exam Vital Signs: Vital Signs: Last Vital Signs Temp 98.9 F 10/29/20 07:23 Pulse 74 10/29/20 07:23 Resp 16 10/29/20 07:23 BP 114/64 10/29/20 07:23 Pulse Ox 98 10/29/20 07:23 Body Mass Index 22.7 Gen: in no acute distress HEENT: sclera anicteric, moist mucus membranes Neck: supple Lungs: clear to auscultation bilaterally Heart: regular rate and rhythm, no murmurs Abd: soft, non-tender, non-distended Ext: no edema Skin: warm/well-perfused Neuro: alert and oriented x3, L homonymous hemianopsia Psych: appropriate affect Objective Data Active Medications Acetaminophen (Acetaminophen 325 Mg Tablet) 650 mg PO Q6H PRN PRN Reason: Pain, Mild (Pain Scale 1-3) Acetaminophen/Butalbital/Caffeine (Butalb/Acetamin/Caff 50/325/40 Tablet) 1 tab PO Q4H PRN PRN Reason: headache Last Admin: 10/29/20 04:27 Dose: 1 tab Documented by: LUIS Aspirin (Aspirin Enteric Coated 81 Mg Tablet.) 81 mg PO DAILY [facility] Last Admin: 10/28/20 10:35 Dose: 81 mg Documented by: TAL Atorvastatin Calcium (Atorvastatin Calcium 80 Mg Tablet) 80 mg PO DAILY [facility] Last Admin: 10/28/20 10:35 Dose: 80 mg Documented by: TAL Clopidogrel Bisulfate (Clopidogrel Bisulfate 75 Mg Tablet) 75 mg PO DAILY [facility] Last Admin: 10/28/20 16:04 Dose: 75 mg Documented by: STAN Dicyclomine HCl (Dicyclomine Hcl 10 Mg Capsule) 10 mg PO TID PRN PRN Reason: Gastrointestinal Spasms Or Cramping Last Admin: 10/28/20 13:03 Dose: 10 mg Documented by: TAL Enoxaparin Sodium (Enoxaparin Sodium 40 Mg/0.4 Ml Syringe) 40 mg SUBCUT Q24H [facility] Last Admin: 10/28/20 14:15 Dose: 40 mg Documented by: TAL Melatonin (Melatonin 3 Mg Tablet) 6 mg PO BEDTIME PRN PRN Reason: Insomnia Pt Own Citalopram 10 (Mg) 1 each PO DAILY [facility] Pharmacy Consult (Consult Rx Perform Med Rec) 1 each MISCELLANE ONCE PRN PRN Reason: Consult order Senna (Sennosides 8.6 Mg Tablet) 17.2 mg PO BEDTIME PRN PRN Reason: Constipation Sodium Chloride (0.9 % Sodium Chloride Flush 3 Ml Syringe) 3 ml IVFLUSH QSHIFT [facility] Last Admin: 10/29/20 01:16 Dose: 3 ml Documented by: LUIS Labs CBC & Chem 7: 10/27/20 07:18 10/27/20 07:18 Assessment and Plan (1) Cerebrovascular accident involving posterior circulation: Status: Acute Assessment and Plan: hospital d#4 39yo M with hx Lyme/Marie's palsy 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 left homonymous hemianopsia and found to have occipital CVA # occipital CVA, cryptogenic - presented out of tPA window - no large vessel occlusion on CTA - TTE with bubble pending, may require KAYE- will discuss with Cardiology - telemetry without arrhythmias - thrombophilia workup pending - ASA + clopidogrel + atorvastatin - Neurology consulted # anxiety - continue escitalopram # VTE ppx - LMWH Quality Stroke Does the patient have a stroke diagnosis?: No VTE Prior VTE?: No VTE Risk Level:: Medical - moderate - high VTE Device Contraindication: N/A - Device Ordered VTE Drug Contraindication: Treatment Not Indicated
--- NOTE | 2020-10-29 09:36 | MHC.CM.PN ---
Addendum entered by Gemma Oleary 10/30/20 14:53: NO REFERRALS HAVE THE REQUESTED SPECIALIZED SERVICES. Original Note: PATIENT WILL NEED O.T. SERVICES THAT SPECIALIZE IN [place]. ACCORDING TO CONVERSATION WITH [facility] PATIENT REPORTS THAT HE DISCOVERED THAT SERVICES NEEDED ARE GOING TO COST APPROXIMATELY $500 PER VISIT PATIENT IS NOT INTERESTED IN SECURING THESE SERVICES SECONDARY TO OUT OF POCKET EXPENSE. HE IS AWARE THAT CASE MANAGEMENT IS ATTEMPTING TO FIND SERVICES TO COME TO THE HOME. REFERRALS PLACED TO [facility] AND [facility]
[2020-10-29] MEDS: Clopidogrel Bisulfate 75 MG TABLET PO (10:02)
[2020-10-29] MEDS: Atorvastatin Calcium 80 MG TABLET PO (10:02)
[2020-10-29] MEDS: Aspirin Enteric Coated 81 MG TABLET.DR PO (10:02)
[2020-10-29 11:01] VITALS: BP 109/58; PULSE 77; RESP 15; TEMP 37.2; O2SAT 97
--- NOTE | 2020-10-29 14:12 | PM.CNCAR ---
History of Present Illness History of Present Illness Date of Service: 10/29/20 Requesting physician: Rohit Manrique Chief complaint: CVA Narrative: 39-year-old gentleman who is presenting for sudden-onset visual changes and hemianopsia and has been diagnosed with CVA. We have been asked to assess him for cryptogenic stroke. He has no risk factors for stroke and denies any history of hypertension, diabetes or hyperlipidemia. No family history of DVTs or any cardiovascular disease. He is denying palpitations or any arrhythmia. 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 On telemetry he has not had any significant arrhythmia. He had hypercoagulable workup sent which is pending right now. Echocardiography was reviewed which showed no evidence of patent Gomez ovale by bubble study. He has been started on aspirin and Plavix. Review of Systems Review of Systems: With no chest pain or palpitations. [facility] Past Medical History Medical History Anxiety TIA (transient ischemic attack) Social History Social History Household Members: Significant Other Housing: House Do you presently have visiting nurse or other home services: No Alcohol intake: never Patient Tobacco Use Status: Never used Tobacco Smoked in Last 30 Days: No Patient Interested in Nicotine Replacement: No Patient Given Instructions on How to Stop Smoking: No Second Hand Smoke Exposure: No Use of substances other than those prescribed or required for medical reasons: No Currently Displaying Signs/Symptoms of Drug Intoxication Withdrawal: No Any prior treatment program specific to substance use: No Have you been hit, kicked, punched, or otherwise hurt by someone within the past year? If so, by whom?: No Do you feel safe in your current relationship?: Yes Is there a partner from a previous relationship who is making you feel unsafe now?: No Are you made to feel afraid or neglected: No Advance Directives: No Advance Directives Information Provided: No Do you have thoughts of harming others: None Do you have a plan to hurt others: No Plan Recently lost weight without trying: No service: No Current occupational status: employed Meds Allergies Allergy/AdvReac Type Severity Reaction Status Date / Time No Known Allergies Allergy Verified 10/26/20 15:28 Active Medications: Current Medications Generic Name Dose Route Start Last Admin Trade Name Fe PRN Reason Stop Dose Admin Acetaminophen 650 mg 10/26/20 20:31 Acetaminophen 325 Mg Tablet PO Q6H PRN Pain, Mild (Pain Scale 1-3) Acetaminophen/Butalbital/Caffeine 1 tab 10/27/20 10:06 10/29/20 04:27 Butalb/Acetamin/Caff 50/325/40 Tablet PO 1 tab Q4H PRN Administration headache Aspirin 81 mg 10/27/20 09:00 10/29/20 10:02 Aspirin Enteric Coated 81 Mg Tablet.Dr PO 81 mg DAILY JOSE Administration Atorvastatin Calcium 80 mg 10/27/20 09:00 10/29/20 10:02 Atorvastatin Calcium 80 Mg Tablet PO 80 mg DAILY JOSE Administration Clopidogrel Bisulfate 75 mg 10/28/20 15:05 10/29/20 10:02 Clopidogrel Bisulfate 75 Mg Tablet PO 75 mg DAILY JOSE Administration Dicyclomine HCl 10 mg 10/28/20 10:32 10/28/20 13:03 Dicyclomine Hcl 10 Mg Capsule PO 10 mg TID PRN Administration Gastrointestinal Spasms Or Cramping Enoxaparin Sodium 40 mg 10/27/20 15:00 10/28/20 14:15 Enoxaparin Sodium 40 Mg/0.4 Ml Syringe SUBCUT 40 mg Q24H JOSE Administration Melatonin 6 mg 10/26/20 20:31 Melatonin 3 Mg Tablet PO BEDTIME PRN Insomnia Pt Own Citalopram 10 1 each 10/29/20 09:00 10/29/20 10:03 Mg PO 1 each DAILY JOSE Administration Pharmacy Consult 1 each 10/26/20 17:10 Consult Rx Perform Med Rec MISCELLANE ONCE PRN Consult order Senna 17.2 mg 10/26/20 20:31 Sennosides 8.6 Mg Tablet PO BEDTIME PRN Constipation Sodium Chloride 3 ml 10/27/20 00:00 10/29/20 10:02 0.9 % Sodium Chloride Flush 3 Ml Syringe IVFLUSH 3 ml QSHIFT JOSE Administration Home Medications Medication Instructions Recorded Confirmed Last Taken Type citalopram 10 mg tablet 1 tab PO BEDTIME 10/26/20 10/26/20 10/25/20 History dicyclomine 10 mg capsule 1 cap PO TID PRN 10/26/20 10/26/20 10/26/20 History Physical Exam Vital Signs: Vital Signs: Last Vital Signs Temp 98.9 F 10/29/20 11:01 Pulse 77 10/29/20 11:01 Resp 15 10/29/20 11:01 BP 109/58 L 10/29/20 11:01 Pulse Ox 97 10/29/20 11:01 Body Mass Index 22.7 GENERAL APPEARANCE: in no acute distress, pleasant. NECK: no carotid bruit, no jugular venous distention. SKIN: no suspicious lesions, warm and dry. HEART: no murmurs, regular rate and rhythm. LUNGS: clear to auscultation bilaterally. ABDOMEN: soft, nontender. EXTREMITIES: no edema. PERIPHERAL PULSES: equal. NEUROLOGIC: Left eye visual field defect laterally. Results Labs and Meds Result diagrams: 10/27/20 07:18 10/27/20 07:18 Assessment and Plan (1) Cerebrovascular accident involving posterior circulation: Status: Acute (2) Bilateral hemianopia: Status: Acute Pleasant 39 year gentleman presenting for cryptogenic stroke. Echocardiography is normal right now and bubble study did not show any evidence of patent Gomez ovale. He has hypercoagulable workup sent which is currently pending. Telemetry has not shown any arrhythmia right now. We will implant an ILR so we can monitor him for atrial fibrillation. Will wait for hypercoagulable workup to come back. Continue the aspirin and Plavix in the meantime. We will arrange a KAYE with bubble study as outpatient to make sure we are not missing intracardiac shunt. Right now his transthoracic echo reasonable quality is not showing any obvious evidence of patent Gomez ovale. Thank you for allowing me to participate in the care of your patient. Please feel free to contact me if you have any questions. Procedures Date of Service Date of Service: 10/29/20
[2020-10-29 15:17] VITALS: BP 116/66; PULSE 78; RESP 18; TEMP 36.7; O2SAT 95
[2020-10-29] MEDS: Enoxaparin Sodium 40 MG/0.4 ML SYRINGE SUBCUT (15:19)
[2020-10-29 18:53] VITALS: BP 118/67; PULSE 86; RESP 18; TEMP 36.6; O2SAT 99
[2020-10-30] VITALS: BP 147/79; PULSE 78; RESP 18; TEMP 36.4; O2SAT 99
[2020-10-30] MEDS: 0.9 % Sodium Chloride Flush 3 ML SYRINGE IVFLUSH ×2 (00:33→10:52)
[2020-10-30 03:37] VITALS: BP 112/56; PULSE 66; RESP 18; TEMP 36.8; O2SAT 99
[2020-10-30 07:47] VITALS: BP 98/55; PULSE 73; RESP 18; TEMP 36.7; O2SAT 99
--- NOTE | 2020-10-30 10:51 | P.DS_ITS ---
DS: Providers Provider Date of Service: 10/30/20 Date of admission: 10/26/20 20:31 Primary care physician: Santhosh Blancas MD Consults: 10/26/20 20:31 Consult to Neurology Routine Consulting Provider: [facility] Reason for consultation: CVA 10/29/20 10:16 Consult to Cardiology Routine Consulting Provider: Kendall Mesa Reason for consultation: cryptogenic CVA. ?KAYE DS: Diagnosis Discharge Diagnosis (1) Cerebrovascular accident involving posterior circulation: Status: Acute (2) Homonymous hemianopsia due to recent cerebral infarction: Status: Acute DS: Summary Hospital Course Hospital Course: From admission history and physical by hospitalist Rasheed Hanna, 10/26/20: 39-year-old male with no significant past medical history presented to the hospital with a chief complaint of floaters in the eye. Patient reported that on 10/25/20 evening around 9 9:30 p.m. patient noted to have floaters in his left eye which gradually progressed to blind spots. Denies any headaches. Denies any numbness tingling or focal weakness. Patient mentions that he thought the symptoms would improve, to kiss melatonin and went to sleep; at the symptoms were not improving in the morning he went to his eye doctor Dr. Sheikh-Gary who is concern for left homonymous hemianopsia, concern for stroke recommended MRI MRA brain and sent him to the ER for further evaluation. Patient came to the ER around 3:00 p.m. on 10/26/2020; continued to have the symptoms; denies any chest pain palpitations lightheadedness or dizziness. Reports blind spots in the left eye; Denies any fever chills cough. Denies any recent travel or sick contacts. Review of all other systems is negative except mentioned above This 39yo M was sent in by his tie hacker with left homonymous hemianopsia and found to have a cryptogenic occipital CVA. He presented out of the window for tPA. There was no large vessel occlusion on CTA. TTE with bubble was negative for inter-atrial shunt. KAYE will be arranged by the wolf hunter as an outpatien.t Telemetry did not demonstrate arrhythmias. An implantable loop recorder was placed for long-term monitoring for arrhythmias. Thrombophilia workup was sent and is pending at the time of discharge. He was started on aspirin, clopidogrel, and atorvastatin for secondary prevention. He will follow up with Primary Care, Cardiology, and Neurology as an outpatient, along with occupational therapy for low-vision. Time Spent with Patient Time attestation: Total time spent providing and/or coordinating discharge services: Discharge coordination time: Greater than 30 minutes Quality: Stroke Does the patient have a stroke diagnosis?: Yes Reason for No Anti-thrombotic at DC: N/A - Med Ordered Reason for No Anticoagulant at DC: N/A - Med Ordered Reason Not Initiating IV-Tpa: Drug treatment not indicated Reason for No Anti-thrombotic by Day Two: N/A - Med Ordered Reason for No Statin at DC: N/A - Med Ordered Physical Exam Vital Signs: Vital Signs: Last Vital Signs Temp 98.1 F 10/30/20 07:47 Pulse 73 10/30/20 07:47 Resp 18 10/30/20 07:47 BP 98/55 L 10/30/20 07:47 Pulse Ox 99 10/30/20 07:47 Body Mass Index 22.7 Gen: in no acute distress HEENT: sclera anicteric, moist mucus membranes Neck: supple Lungs: clear to auscultation bilaterally Heart: regular rate and rhythm, no murmurs Abd: soft, non-tender, non-distended Ext: no edema Skin: warm/well-perfused Neuro: alert and oriented x3, L homonymous hemianopsia Psych: appropriate affect DS: Data Data Completed and Pending Completed studies during hospitalization [Text1]: ITS Impressions Head CT 10/26/20 15:28 IMPRESSION: Question acute right occipital lobe infarct. No hemorrhage is seen. Findings were communicated to Hayley Evans by telephone on 10/26/2020 at 4:34 PM Brain MRI 10/26/20 15:31 IMPRESSION: 1. Regions of restricted diffusion involving the right greater than left PAYROLL ADMINISTRATIVE ASSISTANT territories. No evidence of hemorrhagic conversion. This change may represent sequela of developing acute ischemic insults. However, recommend correlation with blood pressures as this could also represent a slightly atypical appearance of posterior reversible encephalopathy syndrome (PRES). Potential prior seizure activity should also be taken into account has some of these changes could be seen in the postictal state. The distribution would be slightly atypical for infectious/inflammatory encephalitis but this should also be considered in the appropriate clinical setting. 2. Beyond this acute-appearing change, there also appears to be scattered nonspecific mild white matter changes throughout. Mild generalized cerebral volume loss most notably affecting the cerebellum. Head/Neck CTA 10/26/20 16:57 IMPRESSION: Redemonstrated regions of lost burdick-white matter differentiation involving the bilateral PAYROLL ADMINISTRATIVE ASSISTANT territories including the right greater than left mesial temporal lobes and parasagittal right occipital lobe. No evidence of hemorrhagic conversion. This change may represent sequela of developing acute ischemic insults. However, recommend correlation with blood pressures as this could also represent a slightly atypical appearance of posterior reversible encephalopathy syndrome (PRES). Potential prior seizure activity should also be taken into account has some of these changes could be seen in the postictal state. The distribution would be slightly atypical for infectious/inflammatory encephalitis but this should also be considered in the appropriate clinical setting. Normal CTA head and neck. Head CT 10/27/20 07:15 IMPRESSION: No hemorrhagic conversion within previously observed areas of hypoattenuation and loss of burdick-white differentiation in the PAYROLL ADMINISTRATIVE ASSISTANT territories. No new intracranial pathology compared to 10/26/2020. TTE 10/28/20 - Normal left ventricular size, thickness, systolic function, and wall motion. ? - Normal right ventricular cavity size and systolic function.? ? - There is no evidence of interatrial shunt by color Doppler and contrast.? Laboratory Tests 10/26/20 10/26/20 10/26/20 16:47 16:47 16:47 WBC 8.8 RBC 5.39 Hgb 16.3 Hct 47.6 MCV 88.3 MCH 30.2 MCHC 34.2 RDW 12.5 Plt Count 197 MPV 10.8 Immature Gran % (Auto) 0.3 Neut % (Auto) 65.7 Lymph % (Auto) 24.5 [place] % (Auto) 7.9 Eos % (Auto) 1.3 Baso % (Auto) 0.3 Lymph # (Auto) 2.2 [place] # (Auto) 0.7 Eos # (Auto) 0.1 Baso # (Auto) 0.0 Abs Immat Gran (auto) 0.03 Absolute Neuts (auto) 5.8 Absolute Nucleated RBC 0.000 Nucleated RBC % (auto) 0.0 ESR Hold Purple Top PT 11.5 INR 1.0 APTT Sodium 140 Potassium 4.7 Chloride 103 Carbon Dioxide 27 Anion Gap 15 BUN 14 Creatinine 0.76 Estim Creat Clear Calc 123.8 Estimated GFR > 60 Random Glucose 88 Estimat Average Glucose Hemoglobin A1c % Calcium 9.6 Magnesium 2.4 Total Bilirubin 0.5 AST 23 ALT 18 Alkaline Phosphatase 69 C-Reactive Protein 0.33 Total Protein 7.2 Albumin 4.8 Triglycerides Cholesterol LDL Cholesterol, Calc HDL Cholesterol Urine Color Urine Appearance Urine pH Ur Specific [place] Urine Protein Urine Glucose (UA) Urine Ketones Urine Blood Urine Nitrite Ur Leukocyte Esterase COVID-19 ([place]) COVID-19 [employer] 10/26/20 10/26/20 10/26/20 16:47 16:47 16:47 WBC RBC Hgb Hct MCV MCH MCHC RDW Plt Count MPV Immature Gran % (Auto) Neut % (Auto) Lymph % (Auto) [place] % (Auto) Eos % (Auto) Baso % (Auto) Lymph # (Auto) [place] # (Auto) Eos # (Auto) Baso # (Auto) Abs Immat Gran (auto) Absolute Neuts (auto) Absolute Nucleated RBC Nucleated RBC % (auto) ESR 2 Hold Purple Top SEE NOTE PT INR APTT 46.1 H Sodium Potassium Chloride Carbon Dioxide Anion Gap BUN Creatinine Estim Creat Clear Calc Estimated GFR Random Glucose Estimat Average Glucose Hemoglobin A1c % Calcium Magnesium Total Bilirubin AST ALT Alkaline Phosphatase C-Reactive Protein Total Protein Albumin Triglycerides Cholesterol LDL Cholesterol, Calc HDL Cholesterol Urine Color Urine Appearance Urine pH Ur Specific [place] Urine Protein Urine Glucose (UA) Urine Ketones Urine Blood Urine Nitrite Ur Leukocyte Esterase COVID-19 ([place]) COVID-19 [employer] 10/26/20 10/26/20 10/27/20 17:28 19:53 07:18 WBC 8.7 RBC 5.57 Hgb 16.7 Hct 49.2 MCV 88.3 MCH 30.0 MCHC 33.9 RDW 12.3 Plt Count 185 MPV 10.7 Immature Gran % (Auto) 0.5 H Neut % (Auto) 68.3 Lymph % (Auto) 21.5 [place] % (Auto) 8.0 Eos % (Auto) 1.5 Baso % (Auto) 0.2 Lymph # (Auto) 1.9 [place] # (Auto) 0.7 Eos # (Auto) 0.1 Baso # (Auto) 0.0 Abs Immat Gran (auto) 0.04 H Absolute Neuts (auto) 5.9 Absolute Nucleated RBC 0.000 Nucleated RBC % (auto) 0.0 ESR Hold Purple Top PT INR APTT Sodium Potassium Chloride Carbon Dioxide Anion Gap BUN Creatinine Estim Creat Clear Calc Estimated GFR Random Glucose Estimat Average Glucose Hemoglobin A1c % Calcium Magnesium Total Bilirubin AST ALT Alkaline Phosphatase C-Reactive Protein Total Protein Albumin Triglycerides Cholesterol LDL Cholesterol, Calc HDL Cholesterol Urine Color YELLOW Urine Appearance CLEAR Urine pH 6.0 Ur Specific [place] <= 1.005 Urine Protein NEG Urine Glucose (UA) NEG Urine Ketones NEG Urine Blood NEG Urine Nitrite NEG Ur Leukocyte Esterase NEG COVID-19 ([place]) Negative COVID-19 Clin Com See Note 10/27/20 10/27/20 10/27/20 07:18 07:18 07:18 WBC RBC Hgb Hct MCV MCH MCHC RDW Plt Count MPV Immature Gran % (Auto) Neut % (Auto) Lymph % (Auto) [place] % (Auto) Eos % (Auto) Baso % (Auto) Lymph # (Auto) [place] # (Auto) Eos # (Auto) Baso # (Auto) Abs Immat Gran (auto) Absolute Neuts (auto) Absolute Nucleated RBC Nucleated RBC % (auto) ESR Hold Purple Top PT INR APTT Sodium 137 Potassium 4.6 Chloride 103 Carbon Dioxide 27 Anion Gap 12 BUN 11 Creatinine 0.73 Estim Creat Clear Calc 128.8 Estimated GFR > 60 Random Glucose 93 Estimat Average Glucose 97 Hemoglobin A1c % 5.0 Calcium 9.3 Magnesium Total Bilirubin AST ALT Alkaline Phosphatase C-Reactive Protein Total Protein Albumin Triglycerides 128 Cholesterol 172 LDL Cholesterol, Calc 111 HDL Cholesterol 36 Urine Color Urine Appearance Urine pH Ur Specific [place] Urine Protein Urine Glucose (UA) Urine Ketones Urine Blood Urine Nitrite Ur Leukocyte Esterase COVID-19 ([place]) COVID-19 Clin Com Pending studies at discharge: Blood culture, 10/29/20 [id number] antibody, 10/28/20 Prothrombin gene mutation, anti-cardiolipin antibody, lupus anticoagulant, prot ein C, protein S, antithrombin 3, and factor V Leidin, 10/27/20 Discharge Plan Discharge Patient Disposition: Home, Self-Care Discharge Diagnosis: left homonymous hemianopsia due to occipital stroke Referrals: Lyly Hurley MD [Physician] - 2 Weeks Kendall Mesa MD [Physician] - 2 Weeks Santhosh Blancas MD [Primary Care Provider] - 1 Week Discharge Medications: New atorvastatin 80 mg Tablet 80 mg PO DAILY Qty: 30 RF: 0 clopidogrel 75 mg Tablet 75 mg PO DAILY Qty: 30 RF: 0 aspirin 81 mg Tablet,Delayed Release (Dr/Ec) 81 mg PO DAILY Qty: 30 RF: 0 Continued citalopram 10 mg tablet 1 tab PO BEDTIME RF: 0 dicyclomine 10 mg capsule 1 cap PO TID PRN (Reason: Gastrointestinal Spasms Or Cramping) RF: 0 Diet: other Activity on Discharge: As tolerated Stand Alone Forms: Patient Portal Discharge page Care Plan Goals: recovery of vision prevention of future strokes Health Concerns: left homonymous hemianopsia due to occipital stroke, cryptogenic Plan of Treatment: for recovery of vision: - occupational therapy for workup of cause of stroke: - implantable loop recorder placed; follow up with [facility] Cardiology for monitoring and to plan KAYE [transesophageal echocardiogram] - follow up with your primary care doctor for results of thrombophilia/hypercoagulable workup for prevention of future strokes: - dual antiplatelet therapy with aspirin 81 mg daily plus clopidogrel 75 mg daily - atorvastatin 80 mg daily - Mediterranean diet follow up with Neurology Assessment: as above Patient Instructions: Stroke (DC), Your Vision (GEN), Mediterranean Diet (DC), Transesophageal Echocardiogram (DC)
--- NOTE | 2020-10-30 12:04 | P.PNCA_ITS ---
Subjective Subjective Date of Service: 10/30/20 Interval history: No changes, TTE did not show any PFO/ASD. Will get ILR implanted today. Physical Exam Vital Signs: Last Vital Signs Temp 98.1 F 10/30/20 07:47 Pulse 73 10/30/20 07:47 Resp 18 10/30/20 07:47 BP 98/55 L 10/30/20 07:47 Pulse Ox 99 10/30/20 07:47 Body Mass Index 22.7 GENERAL APPEARANCE: in no acute distress, pleasant. NECK: no carotid bruit, no jugular venous distention. SKIN: no suspicious lesions, warm and dry. HEART: no murmurs, regular rate and rhythm. LUNGS: clear to auscultation bilaterally. ABDOMEN: soft, nontender. EXTREMITIES: no edema. PERIPHERAL PULSES: equal. NEUROLOGIC:? Left eye visual field defect laterally. Results Labs and Meds Result diagrams: 10/27/20 07:18 10/27/20 07:18 Progress Note: A&P Assessment and plan (1) Cerebrovascular accident involving posterior circulation: Status: Acute Assessment and Plan: 39-year-old gentleman who is here for CVA. Transthoracic echocardiogram did not show any evidence of PFO or ASD. Normal biventricular function. We will arrange KAYE as outpatient. His hypercoagulable workup is pending. We will implant a ILR today so we can monitor him for arrhythmia as he gets discharged. Thank you for allowing me to participate in the care of your patient. Please feel free to contact me if you have any questions. Fall Risk Details Current Medications: Current Medications Acetaminophen (Acetaminophen 325 Mg Tablet) 650 mg PO Q6H PRN PRN Reason: Pain, Mild (Pain Scale 1-3) Acetaminophen/Butalbital/Caffeine (Butalb/Acetamin/Caff 50/325/40 Tablet) 1 tab PO Q4H PRN PRN Reason: headache Last Admin: 10/29/20 04:27 Dose: 1 tab Documented by: Aspirin (Aspirin Enteric Coated 81 Mg Tablet.) 81 mg PO DAILY [facility] Last Admin: 10/30/20 09:26 Dose: Not Given Documented by: Atorvastatin Calcium (Atorvastatin Calcium 80 Mg Tablet) 80 mg PO DAILY [facility] Last Admin: 10/30/20 09:26 Dose: Not Given Documented by: Clopidogrel Bisulfate (Clopidogrel Bisulfate 75 Mg Tablet) 75 mg PO DAILY [facility] Last Admin: 10/30/20 09:26 Dose: Not Given Documented by: Dicyclomine HCl (Dicyclomine Hcl 10 Mg Capsule) 10 mg PO TID PRN PRN Reason: Gastrointestinal Spasms Or Cramping Last Admin: 10/28/20 13:03 Dose: 10 mg Documented by: Enoxaparin Sodium (Enoxaparin Sodium 40 Mg/0.4 Ml Syringe) 40 mg SUBCUT Q24H [facility] Last Admin: 10/29/20 15:19 Dose: 40 mg Documented by: Melatonin (Melatonin 3 Mg Tablet) 6 mg PO BEDTIME PRN PRN Reason: Insomnia Pt Own Citalopram 10 (Mg) 1 each PO DAILY [facility] Last Admin: 10/30/20 09:26 Dose: Not Given Documented by: Pharmacy Consult (Consult Rx Perform Med Rec) 1 each MISCELLANE ONCE PRN PRN Reason: Consult order Senna (Sennosides 8.6 Mg Tablet) 17.2 mg PO BEDTIME PRN PRN Reason: Constipation Sodium Chloride (0.9 % Sodium Chloride Flush 3 Ml Syringe) 3 ml IVFLUSH QSHIFT [facility] Last Admin: 10/30/20 10:52 Dose: 3 ml Documented by: Time Spent With Patient Time: Total time spent is greater than 50% in coordination of care (as documented) at patient's floor/unit and/or counseling patient: Time with patient: 15 - 24 minutes Progress Note: Quality Stroke Does the patient have a stroke diagnosis?: Yes Reason for No Anti-thrombotic by Day Two: N/A - Med Ordered Procedures Date of Service Date of Service: 10/30/20
--- NOTE | 2020-10-30 14:37 | PM.OP ---
Brief Operative Note Date of Service: 10/30/20 Pre-op diagnosis: CVA Post-op diagnosis: same Procedure: Placement of implantable loop recorder Implants: After obtaining full informed consent patient was brought to the minor surgery suite. Patient was then laid supine on the operating table. Patient's precordial area was then clipped. The area was then prepped and draped in a sterile fashion. Patient was then injected with 2% lidocaine with epinephrine in the intradermal in the subcutaneous place in the 4th intercostal space. A [employer] implantable loop recorder serial number [id number] was then implanted in the subcutaneous place using Seldinger technique. The wound was then closed with Steri-Strips. Sterile dressing was then applied. Minimal blood loss was noted R-wave measured at 0.50 mV Surgeon: Kam Zambrano MD Anesthesia: local Was an Body Former used for this Procedure?: No Estimated blood loss (mL): 2 Condition: stable Disposition: floor
--- NOTE | 2020-10-30 14:54 | MHC.CM.PN ---
PATIENT IS DISCHARGED HOME WITH NO SERVICES. RN AWARE OF PLAN
[2020-10-30 15:06] VITALS: BP 123/74; PULSE 80; RESP 18; TEMP 36.2; O2SAT 100
--- NOTE | 2020-10-30 15:24 | MHC.STROKEDC ---
I accompanied patient to minor surgery for the placement of the [employer] LINQ implantable monitor device. I did reinforce the education that the [employer] Internal Audit Director provided. The was also present during the education. Dr. Zambrano instructed the patient to follow up with Dr. Mesa in the office. The patient cannot shower for 3 days, keep the area clean and dry. He needs a to make a follow up appointment with Cardiology. The dressing and steri-strips can be removed during the cardiology visit. The device monitor will need to be plugged into the outlet, the information will be downloaded between midnight and 0500. The patient and under these instructions. If he has any questions, he should call his quality control technician. The patient will need to follow up with Dr. Paez Neurologist [phone] after seeing his primary care physician. He is to take all medications as prescribed. Stroke Signs & Symptoms reviewed. If stroke symptoms return immediately call 911. Follow discharge instructions and information from stroke education booklet. a Lab Systems Analyst is recommended and information on medical release of information provided to the patient and his .
[2020-10-31 11:06] LABS: Cardiolipin IgG Ab <2.0 GPL-U/mL; Cardiolipin IgM Ab <2.0 MPL-U/mL
[2020-11-01 05:46] LABS: Beta-2 Glycoprotein IgA <2.0 U/mL (<20.0); Beta-2 Glycoprotein IgG <2.0 U/mL (<20.0); Beta-2 Glycoprotein IgM <2.0 U/mL (<20.0)
[2020-11-03 08:37] LABS: Anti-Thrombin III Activity 105 % normal (80-135); Factor V Leiden NEGATIVE; PTT (LAC) Screen 40 sec (< OR = 40); Protein C Activity 98 % (70-180); Protein S Activity rflx Tot&Fr 97 % (70-150); Prothrombin 20210A NEGATIVE
== END 2020-10-30 16:03 | disposition home or self-care (01) | DRG 42 ==
LOC: HO.ED 17:36 → HO.EDOVER 20:40 → HO.S3 10-27 08:42
PROVIDERS: Internal Medicine Cardiovascular Disease; Physician Assistant Medical; Admitting Provider Hospitalist; Emergency Provider Emergency Medicine; PCP Internal Medicine; Visit Provider Family Medicine
PROC: 0JH602Z Insertion of Monitoring Device into Chest Subcutaneous Tissue and Fascia, Open Approach (ICD-10-PCS; CPT 33285; principal; 2020-10-30 14:00)
DX: I63.533 Cerebral infarction due to unspecified occlusion or stenosis of bilateral posterior cerebral arteries (principal); H53.462 Homonymous bilateral field defects, left side; R29.703 NIHSS score 3; F41.9 Anxiety disorder, unspecified; Z20.822 Contact with and (suspected) exposure to COVID-19; Z79.01 Long term (current) use of anticoagulants; Z79.82 Long term (current) use of aspirin; Z79.899 Other long term (current) drug therapy
CPT/HCPCS: 36415; 70450; 70496; 70498; 70551; 80048; 80053; 80061; 81003; 81240; 81241; 83036; 83735; 85025; 85300; 85302; 85303; 85305; 85306; 85597; 85610; 85613; 85652; 85730; 86140; 86146; 86147; 87040; 87635; 93005; 93306; 97116; 97161; 97166; 97530; 97535; 99285; C1764; J1650; Q9967

== ENCOUNTER 2024-12-26 14:45 | Outpatient (AMB) | payer OTHER, SELFPAY ==
[2024-12-26 15:20] VITALS: BP 110/72; PULSE 84; BMI 21.3
--- NOTE | 2024-12-26 15:20 | A.OFFVIS_ITS ---
Vital Signs 12/26/24 15:20 Height 5 ft 7 in Weight 135 lb 12.876 oz BMI 21.3 BP 110/72 Blood Pressure Location Lt brachial Position Sitting Pulse 84 Pulse Source Monitor Intake Visit Reasons: FU per DC ILR removal ? Home Health Rn Required: No Allergies No Known Allergies Allergy (Verified 12/26/24 15:23) Medication List - Last Reconciled 12/26/24 by Leti Bonner, QUIRINO-C citalopram 1 tab PO BEDTIME dicyclomine 1 cap PO TID PRN HPI HPI FU per DC ILR removal ?: Details: Jose is a 44-year-old male with past medical history of anxiety, CVA, ILR placement 10/30/2020 who presents for follow-up. Today he reports that he did undergo testing after his CVA in 2020 and no known cause has been identified. He is now believing that his CVA was caused by COVID vaccine. His loop recorder was placed and he had his remote monitoring in use for a few years. More recently it has not been plugged in. He has not been having any concerning, shortness of breath or chest discomfort. He has had no recurrent neurological changes. He believes he is 90-95% recovered from his CVA. He has some minimal in coordination with the left side. He would like to have ILR removed. COUNT INCLUDES THE [facility] Medical History (Updated 12/26/24 @ 16:39 by Leti Bonner, MATRIX WORKER-C) Elevated cholesterol Cerebrovascular accident involving posterior circulation Bilateral hemianopia Anxiety TIA (transient ischemic attack) Social History Household Members: Significant Other Housing: House Do you presently have visiting nurse or other home services: No Alcohol intake: never Patient Tobacco Use Status: Never used Tobacco Second Hand Smoke Exposure: No service: No Current occupational status: employed Review of Systems Const All systems reviewed & are unremarkable except as noted in HPI and below ENT Denies dizziness Card Denies chest pain, Denies chest pain at rest, Denies chest pain with activity, Denies rapid heart rate, Denies pedal edema, Denies edema, Denies leg edema, Denies lightheadedness, Denies palpitations, Denies dyspnea, Denies dyspnea on exertion and Denies orthopnea Resp Denies cough, Denies dyspnea and Denies dyspnea on exertion GI Denies hematochezia and Denies change in stool character Musc Denies abnormal gait, Denies limited range of motion, Denies muscle cramps, Denies muscle weakness, Denies numbness, Denies radiating pain into limb, Denies stiffness and Denies tingling Neuro Denies abnormal gait, Denies dizziness, Denies numbness and Denies tingling Endo Denies palpitations Physical Exam Vital Signs: Last Vital Signs Pulse 84 12/26/24 15:20 BP 110/72 12/26/24 15:20 BMI result Body Mass Index 21.3 Const General: cooperative, healthy appearing, comfortable and no acute distress Orientation/consciousness: patient oriented x3 Neck Neck: Yes normal visual inspection Resp Effort & Inspection: normal respiratory effort Cardio Rate: regular rate Rhythm: regular rhythm Heart sounds: S1 normal heart sound present, S2 normal heart sound present and no murmurs Neuro General: patient oriented x3 Extrem General: Yes normal to inspection Psych Appearance: grossly normal Mental Status: mental status grossly normal Speech and movement: Normal speech and movement present Assessment & Plan Assessment & Plan (1) Implantable loop recorder present: Code(s): Z95.818 - Presence of other cardiac implants and grafts Category: Medical Plan: Loop recorder placed 10/30/2024 following cryptogenic stroke. Long-term monitoring has shown no atrial fibrillation. Last interrogation 11/07/2024 showing no events. He is requesting ILR removal which will be arranged in the near future. Procedure reviewed with him in detail. (2) Cerebrovascular accident involving posterior circulation: Code(s): I63.50 - Cerebral infarction due to unspecified occlusion or stenosis of unspecified cerebral artery Category: Medical Plan: History of CVA, patient reports no known cause. He believes it may have been from COVID vaccine. No recurrent events. Plan We discussed the removal of the loop recorder, which is no longer necessary as it has not detected any cardiac events. The procedure will be scheduled in the short-stay surgery department. We also reviewed the patient's recovery from the stroke, noting significant improvement with therapy. Orders: Orders Implantable Loop Rec Explant Today Z95.818 - Presence of other cardiac implants and grafts Medications: Discontinued clopidogrel Discontinued Reason: Patient Completed Course 75 mg PO DAILY 30 tabs 0RF aspirin Discontinued Reason: Patient no longer taking 81 mg PO DAILY 30 tabs 0RF atorvastatin Discontinued Reason: Patient no longer taking 80 mg PO DAILY 30 tabs 0RF Patient Instructions: - Await scheduling call for loop recorder removal. Patient was informed and verbally consented to the use of an ambient scribe for clinic note documentation during this visit. Visit time spent on chart review, interview, assessment, orders, documentation. Coding Level of Care Code Est Pt Level 3 (69241) Complex EM visit Add On G2211 Diagnoses Implantable loop recorder present Z95.818 Cerebrovascular accident involving posterior circulation I63.50 Time Spent (min) 22
--- OUTSIDE RECORDS SUMMARY | 2024-12-26 18:02 | XMS_ITS | Clinical Summary ---
Author Organization [facility] Address [address] [place] [address] Phone Care Team Providers Care Aerospace Products Sales Engineer Name Role Phone Santhosh Blancas Primary Care Provider Balwinder Willard Unavailable [phone] Santhosh Blancas Unavailable Social History Tobacco Use Types Packs/Day Years Used Date Smoking Tobacco: Never Assessed Sex and Gender Information Value Date Recorded Sex Assigned at Not on file Legal Sex Male 8:06 PM EDT Gender Identity Not on file Sexual Orientation Not on file Plan of Treatment Not on file Care Teams Aerospace Products Sales Engineer Relationship Specialty Start Date End Date Santhosh Blancas PCP - General 10/18/17 Balwinder Willard [address] [place] [id number] PCP - Insurance PCP 12/25/08 Santhosh Blancas PCP - Clinical PCP 10/18/17
--- OUTSIDE RECORDS SUMMARY | 2024-12-26 18:02 | XMS_ITS | Clinical Summary ---
Author Organization [address] [facility] Address [address] [place] [address] Phone Care Team Providers Care Filer Metal Patterns Name Role Phone Kelvin Melton MD Primary Care Provider Encounters Date Type Department Care Team Description 12/09/2024 Lab Requisition [facility] - Main Lab [address] [facility] [place] [address] Miah Sevilla MD Encounter for sterilization 11/07/2024 Telephone [facility] [address] [facility] [address] [place] [address] Provider, Not In System from Last 3 Months Surgical History Surgery Date Site/Laterality Comments TONSILLECTOMY PROCEDURE: HISTORICAL TONSILLECTOMY ESOPHAGOGASTRODUODENOSCOPY PROCEDURE: UT ESOPHAGOGASTRODUODENOSCOPY TRANSORAL DIAGNOSTIC; COMMENT: 2009 COLONOSCOPY PROCEDURE: UT COLONOSCOPY STOMA DX INCLUDING COLLJ SPEC SPX; COMMENT: 2009 OTHER SURGICAL HISTORY PROCEDURE: UT UNLISTED PROCEDURE PELVIS/HIP JOINT; COMMENT: nerve impingement Family History Medical History Relation Name Comments Blindness Other great grand mother Cataracts Neg Hx Glaucoma Neg Hx Macular degeneration Neg Hx Strabismus Neg Hx Relation Name Status Comments Brother Alive Father Alive Mother Alive Other great grand mother Sister Alive Social History Tobacco Use Types Packs/Day Years Used Date Smoking Tobacco: Former Cigarettes 0 Q uit: 02/13/2007 Smokeless Tobacco: Former Quit: 02/13/2014 Alcohol Use Standard Drinks/Week Comments Yes 0 (1 standard drink = 0.6 oz pur e alcohol) Sex and Gender Information Value Date Recorded Sex Assigned at Not on file Legal Sex Male 12:09 AM EST Gender Identity Not on file Sexual Orientation Not on file Obstetrics History Last Filed Vital Signs Vital Sign Reading Time Taken Comments Blood Pressure 102/80 09/27/2022 9:18 AM EDT Sit ting L Arm Pulse 84 09/27/2022 9:18 AM EDT Temperature - - Respiratory Rate - - Oxygen Saturation - - Inhaled Oxygen Concentration - - Weight 64.9 kg (143 lb) 09/27/2022 9:18 AM EDT Height 170.2 cm (5' 7 ) 09/27/2022 9:18 AM EDT Body Mass Index 22.4 09/27/2022 9:18 AM EDT Plan of Treatment Health Maintenance Due Date Last Done Comments Hepatitis B Vaccines (1 of 3 - 19+ 3-dose series) 2001 HPV Vaccines (1 - 3-dose SCD M series) 2009 DTaP,Tdap,and Td Vaccines (2 - Td or Tdap) 10/14/2014 10/14/2004 Cholesterol Screening (Lipid Panel) 01/16/2022 HIV Screening 01/16/2022 Hepatitis C Screening 01/16/2022 Social Influencers of Health Screening 01/16/2022 Depression Screening 02/14/2024 COVID-19 Vaccine (1 - 2024-2 6 season) 2024 Influenza Vaccine (#1) 2024 7, 02/26/2016, 11/21/2014 RSV Immunization Adult Patients (1 - 1-dose 75+ series) 2057 HIB Vaccines Aged Out No longer eligi ble based on patient's age to complete this topic Hepatitis A Vaccines Aged Out No long er eligible based on patient's age to complete this topic IPV Vaccines Aged Out No longer eligi ble based on patient's age to complete this topic MMR Vaccines Aged Out No longer eligi ble based on patient's age to complete this topic Meningococcal ACWY Vaccine Aged Out N o longer eligible based on patient's age to complete this topic Meningococcal B Vaccine Aged Out No l onger eligible based on patient's age to complete this topic Pneumococcal Vaccine: Pediatrics (0 to 5 Years) and At-Risk Patients (6 to 49 Years) Aged Out No longer eligible b ased on patient's age to complete this topic RSV Immunization Patients Under 20 months Aged Out No longer eligible b ased on patient's age to complete this topic Varicella Vaccines Aged Out No longer eligible based on patient's age to complete this topic Procedures Procedure Name Priority Date/Time Associated Diagnosis Comments TISSUE EXAM Routine 12/06/2024 Encounter for sterilization from Last 3 Months Results * Tissue Exam (12/06/2024) Final Diagnosis A. Vas deferens, right, vasectomy: - Segment of vas deferens with complete cross section of wall and lumen identified. B. Vas deferens, left, vasectomy: - Segment of vas deferens with complete cross section of wall and lumen identified. 12/12/2024 2:05 PM EDT [facility] at 1405 EDT Clinical Information Z30.2 Encounter for sterilization [id number] 12/12/2024 2:05 PM EDT [facility] Gross Description A. Vas Deferens, Right, : Labeled Right vas deferens . Received in formalin is a 0.2 x 0.3 cm rubbery, ames, tubular portion of tissue, with a central pinpoint lumen, which is submitted in toto in one cassette, between sponges, one piece, embed on end. (The luminal aspect is inked red to assist with embedding orientation.) B. Vas Deferens, Left, : Labeled Left vas deferens . Received in formalin is a 0.2 x 0.3 cm rubbery, ames, tubular portion of tissue, with a central pinpoint lumen, which is submitted in toto in one cassette, between sponges, one piece, embed on end. (The luminal aspect is inked red to assist with embedding orientation.) /al 12/12/2024 2:05 PM EDT [facility] Disclaimer Unless otherwise specified, all tissue is 10% NB formalin fixed and paraffin embedded. Technical pathology services provided by [facility] at [address] [facility] [address] [place] [address] (CLIA #[id number]/Dona Griffin MD, [employer] Excavation Operator) 12/12/2024 2:05 PM EDT [facility] Tissue Structure of left vas deferens / Unknown 12/06/2024 12/09/2024 4:32 PM EDT Tissue specimen (specimen) Structure of left vas deferens / Unknown 12/06/2024 12/09/2024 4:32 PM EDT Miah Sevilla MD LAB PATHOLOGY ORDERABLES Final Result [facility] [address] [place] [address], from Last 3 Months Insurance [employer] Care Teams Filer Metal Patterns Relationship Specialty Start Date End Date Kelvin Melton MD [address] [place] [phone] PCP - General Family Medicine 12/09/24
--- OUTSIDE RECORDS SUMMARY | 2024-12-26 18:02 | XMS_ITS | Clinical Summary ---
Author Organization [facility] Address [facility] [address] [address] Phone Care Team Providers Care Supervisor Elementary Education Name Role Phone Pcp, Not Required Primary Care Provider Unavaila ble Social History Tobacco Use Types Packs/Day Years Used Date Smoking Tobacco: Never Assessed Education Answer Date Recorded Are you interested in more education? Not on barbie e 06/10/2022 Are you concerned about learning? Not on file 06/10/2022 No 06/10/2022 No 06/10/2022 Digital Access Answer Date Recorded No 07/09/2022 No 07/09/2022 No 07/09/2022 Reliable internet access at home? Not on file 07/09/2022 Device with a working camera? Not on file Sex and Gender Information Value Date Recorded Sex Assigned at Not on file Legal Sex Male 3:37 PM EDT Gender Identity Not on file Sexual Orientation Not on file Plan of Treatment Health Maintenance Due Date Last Done Comments LIPID PANEL 1982 DEPRESSION SCREENING 1994 SMOKING Hx and SMOKELESS TOBACCO SCREENING 11/11/1995 HEPATITIS C SCREENING 2000 HIV ONE-TIME SCREENING (18-6 5 YEARS) 2000 Adult Td,Tdap Booster 10/14/2014 10/14/2004 INFLUENZA VACCINE (#1) 2024 7, 02/26/2016, 11/21/2014 COVID-19 VACCINE (2024-2 6 season) 2024 05/25/2020, 04/27/2020 HEPATITIS A VACCINES Aged Out No long er eligible based on patient's age to complete this topic HIB VACCINES Aged Out No longer eligi ble based on patient's age to complete this topic IPV VACCINES Aged Out No longer eligi ble based on patient's age to complete this topic MENINGOCOCCAL VACCINES (ACWY) Aged Out No longer eligible based on patient's age to complete this topic MENINGOCOCCAL VACCINES (B) Aged Out N o longer eligible based on patient's age to complete this topic PNEUMOCOCCAL VACCINES (0-49 years) Aged Out No longer eligible b ased on patient's age to complete this topic Medical Devices Not on file Insurance [employer] PPO CIGNA PPO CIGNA PPO [employer]IGNA PPO [employer] PPO [employer]IG[employer] PPO [employer] PPO [employer] PPO [employer] PPO [employer] PPO Care Teams Supervisor Elementary Education Relationship Specialty Start Date End Date Pcp, Not Required [address] [place] [phone] PCP - General 01/18/23 Additional Source Comments The information contained in this document represents components of the legal health record. It is not the complete legal health record.[facility]
--- OUTSIDE RECORDS SUMMARY | 2024-12-26 18:02 | XMS_ITS | Data Portability ---
Author Organization [place] [facility] Address [address] [place] [address] Assessment Encounter Date Assessment Date Assessment LastModified by Organization Details LastModified Time 03/25/2024 03/25/2024 43yo male with bilateral sensorineural hearing loss presents for evaluation of the right ear. He reports upper respiratory infection 2 weeks ago that resulted in excruciating right otalgia, ear popping sensation, right otorrhagia, and right-sided hearing loss. Demonstrates right dry otorrhagia against tympanic membrane, limiting view. Left TM is intact and well-aerated. External auditory canals without obstruction or otorrhea. We discussed his symptoms are consistent with right TM perforation, although cannot confirm without physical exam or tympanometry. Recommend mineral oil 4 drops nightly for 7 nights, then as needed to soften impaction. Patient will return in 2 weeks for reevaluation with hearing test first. He was recently medically cleared for amplification 08/2023, and plans to obtain this when his hearing returns to baseline. MRI brain and 2020 without retrocochlear pathology. [email or web address] Not available 03/25/2024 12:37:18 04/12/2024 04/12/2024 43yo male with bilateral sensorineural hearing loss presents for reevaluation of right otorrhagia. History is consistent with right TM perforation 1 month ago in the setting of URI. Reports right-sided hearing has slightly improved, but has not returned to baseline. Exam demonstrates significantly improved dry otorrhagia against anterior-inferio r aspect of tympanic membrane. Tympanometry is normal bilaterally. Right audiometric testing was not obtained due to partial impaction. Recommend continuing mineral oil regimen twice weekly and reevaluation in 8 weeks with hearing test first. He plans to obtain amplification when his hearing returns to baseline. MRI brain and 2020 without retrocochlear pathology. [email or web address] Not available 04/12/2024 12:19:02 06/10/2024 06/10/2024 43yo male with bilateral sensorineural hearing loss presents for reevaluation of the ears after suspected TM perforation. He started wearing hearing aids and reports significant improvement. Right-sided otorrhagia cast against TM was removed. Right TM is normal to inspection. Left TM with attic retraction without debris collection. Audiometric testing demonstrates a new conductive gap with moderate to severe mixed hearing loss bilaterally, left worse than right. Tympanometry is type C. MRI of the IACs in 2020 was negative for retrocochlear pathology. Recommend middle ear evaluation with Dr. Awan for further investigation. [email or web address] Not available 06/10/2024 17:19:40 Plan of Treatment Reminders Order Date Submit Date Provider Last Modified By Organization Details Last Modified Time Details Appointments None record ed. Lab None record ed. Referral None record ed. Procedures None record ed. Surgeries None record ed. Imaging None record ed. Medication Orders None record ed. Patient TargetsNo targets recorded. Patient InstructionsNo instructions recorded. Reason for Referral None Reported. Results Created Date Observation Date Name Description Value Unit Range Abnormal Flag Note LastModifiedBy Organization Detail LastModifiedTime 08/22/19 24 12/02/2020 MRI, brain + brain stem, w/wo contr ast No observ ation record ed. [email or web address] Not Available 2023 15:29:31 08/23/19 24 audio gram No observ ation record ed. [email or web address] Not Available 08/13 14:23:19 04/12/19 25 audio gram No observ ation record ed. [email or web address] Not Available 2024 13:16:37 06/12/19 25 audio gram No observ ation record ed. BARCODE Not Available 2024 10:31:14 Result Notes None recorded. Problems Name Problem SNOMED Code Status Onset Date Resolution Date Notes Provider Name and Address Organization Details Recorded Time Mixed conductive and sensorineur al hearing loss, bilateral 108469936 Active 2023 ORI MEJÍA, AUD [address] [address], [place], [address] , [facility] - [facility] 07/09/202 4 14:09:33 Sensorineur al hearing loss of bilateral ears 223250333 Active 2023 ORI MEJÍA, AUD [address] [facility],[address] [address], [place], [address], [facility] - [facility] 4 14:09:59 Bilateral tinnitus 7599548180740 Active 2023 SUNIL Baird MD [address] [facility],[address] [address], [place], [address], [facility] - [facility] 4 14:32:55 Otorrhea of right ear 0279262517667 106 Active 2024 ASHU CORDOVA PA-C [address] [facility],[address] [address], [place], [address], [facility] - [facility] 5 09:30:01 Otorrhagia of right ear 4789459233844 109 Active 2024 ASHU CORDOVA PA-C [address] [facility],[address] [address], [place], [address], [facility] - [facility] 5 12:09:53 Problem Notes None recorded. Procedures Surgical History Date Name Laterality Status Provider Name and Address Organization Details Recorded Time 06/10/2024 Comp Audio with Tymps - 37642 & 58995 completed YVAN HERNANDEZ, SHILOH [address] [facility],[address], [address], [facility] - [facility] 06/10/2024 10:54:11 04/12/2024 Comp Audio with Tymps - 17811 & 65949 completed KAUR MUJICA MA, CCC-A [address] [facility],[address] [address], [place], [address], [place] - [facility] 04/12/2024 11:37:22 08/22/2023 Comp Audio with Tymps - 01532 & 57572 completed ORI MEJÍA, AUD [address] [facility],[address] [address], [place], [address], [facility] - [facility] 08/22/2023 14:09:18 Imaging Results None recorded. Procedure Notes None recorded. Medical Equipment None Reported. Allergies No known drug allergies Medications Name Sig Start Date Stop Date Status Note LastModified by Organization Details LastModified Time atorvastati n 80 mg tablet TAKE 1 TABLET BY MOUTH EVERY DAY active Not Available Not Available No t Available ondansetron HCl 4 mg tablet TAKE 1 TABLET BY MOUTH EVERY 8 HOURS active Not Available Not Available No t Available melatonin 3 mg tablet TAKE 1 TABLET BY MOUTH EVERY DAY AT BEDTIME NEEDED FOR INSOMNIA active Not Available Not Available No t Available peg-electro lyte solution 420 gram oral solution DRINK 240 ML BY MOUTH EVERY 10 MINUTES,U NTIL 8 LITERS ARE CONSUMED OR THE RECTAL EFFLUENT IS CLEARI 03/25 completed Not Available Not Available Not Available vancomycin 125 mg capsule TAKE 1 CAPSULE BY MOUTH EVERY 6 HOURS FOR 3 DAYS 03/25 completed Not Available Not Available Not Available citalopram 20 mg tablet TAKE 1 TABLET BY MOUTH EVERY DAY active Not Available Not Available No t Available mirtazapine 15 mg tablet TAKE 1/2 (HALF) A TABLET BY MOUTH EVERY DAY AT BEDTIME active Not Available Not Available No t Available dicyclomine 10 mg capsule active Not Available Not Available Not Available amoxicillin 875 mg-potassiu m clavulanate 125 mg tablet TAKE 1 TABLET BY MOUTH TWICE A DAY FOR 7 DAYS 03/25 completed Not Available Not Available Not Available oxycodone 5 mg tablet TAKE 1 TABLET BY MOUTH EVERY 6 HOURS NEEDED FOR SEVERE PAIN 03/25 completed Not Available Not Available Not Available Readi-Cat 2 2 % (w/v) oral suspension TAKE DIRECTED ON THE INSTRUCTI ON SHEET 03/25 completed Not Available Not Available Not Available Therems-M 9 mg iron-400 mcg tablet TAKE 1 TABLET BY MOUTH EVERY DAY active Not Available Not Available No t Available Miebo (PF) 100 % eye drops active Not Available Not Available Not Available Vitals Date Recorded Body height Body mass index (BMI) Body weight Provider Name and Address Organization Details Last Updated DateTime 03/25/2024 170.18 cm 20.4 kg/m2 00158.01 g Debi Gupta [place] [facility] 03/25/2024 09:13:25 Date Recorded Body height Body mass index (BMI) Body weight Provider Name and Address Organization Details Last Updated DateTime 06/10/2024 170.18 cm 20.4 kg/m2 49140.01 g Debi Gupta [place] [facility] 06/10/2024 11:02:33 Date Recorded Body height Body mass index (BMI) Body weight Provider Name and Address Organization Details Last Updated DateTime 08/22/2023 170.18 cm 20.4 kg/m2 33252.01 g Shilohvalentino Franks [place] [facility] 08/22/2023 14:16:38 Social History None recorded. Functional Status None recorded. Mental Status None recorded. Family History Nothing Reported. Medical History Condition Response Hearing Loss Y Past Encounters Encounter ID Performer Location Encounter Start Date Encounter Closed Date Diagnosis/Indication Diagnosis SNOMED-CT Code Diagnosis ICD10 Code Diagnosis IMO Codes Diagnosis Note [id number] SUNIL DUBOSE MD [facility] [address] [address] 08/22/2023 13:01:12 08/22/2023 14:32:27 Sensorineural hearing loss of bilateral ears 629354312 H90.3 Audiologic al evaluation results:Ri ght ear:Normal sloping to a mild to severe sensorineu ral hearing loss with excellent word recognitio n.Left ear:Mild sloping to moderately severe sensorineu ral hearing loss with excellent word recognitio n. Tympanomet ry:Right Ear:Type ALeft Ear:Type A I gave medical clearance for hearing aids. I reviewed his MRI brain with contrast 12/03 which did show a CVA but did not show any retrocochl ear pathology on my review. I will not repeat an MRI at this time. He says he has failed hearing tests for years. I will monitor his hearing with yearly hearing tests. I will also order a hearing aid evaluation . History of cerebrovascular accident [id number] Z86.73 Bilateral tinnitus 62287 75391 102 H93.13 Ear exam was normal. Audiogram was reviewed. We discussed the associatio n between sensorineu ral hearing loss and tinnitus. We discussed masking for tinnitus. 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 He feels his hearing loss is severe despite me reviewing the audiogram and the different degrees of hearing loss, his being mild. Purchased? No.HIs insurance benefit is a clear as mud. It says we are in network, does not review in vs out of network benefits, etc. I have given him a copy of the insurance benefit with [employer]'s phone number, copy of HT, medical clearance, Lumity brochure. He reports that Jabra have been the highest rated hearing aids, Lumity second. He knows to contact me if he decides to get his hearing aids here. [id number] ASHU CORDOVA PA-C [facility] [address] [address] 03/25/2024 08:41:43 03/25/2024 14:13:59 Sensorineural hearing loss of bilateral ears 795620887 H90.3 Otorrhagia of right ear 7111286146 336901 H92.21 [id number] ASHU CORDOVA PA-C [facility] [address] [address] 04/12/2024 10:52:04 04/12/2024 12:02:00 Bilateral tinnitus 6271447260 102 H93.13 Audiologic al evaluation results: Left ear: Mild-moder ate SNHL with excellent word recognitio n. Could not visualize Right TM. Tympanomet ry: Right Ear:Type A Left Ear:Type Ad Otorrhagia of right ear 9971909450 347217 H92.21 Sensorineu ral hearing loss of bilateral ears 228402419 H90.3 [id number] ASHU CORDOVA PA-C [facility] [address] [address] 06/10/2024 10:21:20 06/10/2024 11:27:06 Mixed conductive and sensorineural hearing loss, bilateral 372489978 H90.6 Audiologic al evaluation results: Moderate to severe mixed hearing loss with excellent word recognitio n, bilaterall y. Decrease in hearing along with a newly found MHL verse the usual SNHL seen in previous testing. Tympanomet ry:Right Ear:Type CLeft Ear:Type C Otorrhagia of right ear 8425069006 854361 H92.21 Health Concerns Section Related Observation LastModified by Organization Detai ls LastModified Time None Recorded Concern Status LastModified by Organization Details LastModified Time None Recorded Advance Directives Directive None Recorded Payers Insurance Date Sequence Insurance Name Policy Number Policy Williamson Covered Member ID Williamson Member ID Guarantor Name 06/10/2024 1 [employer] [id number] Jose Arcoseod [id number] 2 Jose Musa Emanuel Notes Date Note Type Note Provider Name and Address Organization Details Recorded Time 08/22/2023 text/html ROS as noted in the [facility] He presents with hearing loss. Hx of many ear infections over the years. He feels he is hearing worse over time. Audio showed normal sloping to severe SNHL AD and mild sloping to moderate SNHL . He has a history of a CVA with vision loss. It is unclear why he had CVA. He has tinnitus AU. SUNIL DUBOSE MD [address] [place] [address],[address], [phone], [place] - [facility] 08/22/2023 14:33:17 03/25/2024 text/html ROS as noted in the [facility] 43yo male with bilateral sensorineural hearing loss presents for evaluation of the right ear. He reports upper respiratory infection 2 weeks ago that resulted in excruciating right ear pain, ear popping sensation, right ear bleeding, and associated right sided hearing loss. He denies recent ear infection. He was recently medically cleared for amplification, and plans to obtain this when his hearing returns to baseline. MRI brain and 2020 without retrocochlear pathology. CAPO AWAN MD [address] [place] [address],[address] [address], [place], [address], [place] [facility] 03/26/2024 08:38:21 04/12/2024 text/html ROS as noted in the [facility] 43yo male with bilateral sensorineural hearing loss presents for reevaluation of right otorrhagia. History consistent with right TM perforation 1 month ago in the setting of URI. He denies ear pain or drainage. Right-sided hearing has slightly improved, but has not returned to baseline. LIS JEAN BAPTISTE MD [address] [facility],[address], [address], [facility] 04/13/2024 06:52:28 06/10/2024 text/html ROS as noted in the HPI 43yo male with bilateral sensorineural hearing loss presents for reevaluation of the ears after suspected TM perforation. He continues to endorse gradual hearing loss in both ears despite amplification. He denies ear pain or drainage. Reports his sister has congenital hearing loss. MRI of the IACs in 2020 was negative for retrocochlear pathology. GREGORIO GONZALEZ MD [address] [facility],[address] [address], [place], [address], [facility] 06/10/2024 22:06:04
--- OUTSIDE RECORDS SUMMARY | 2024-12-26 18:02 | XMS_ITS | Encounter Summary ---
Author Organization [facility] Address [address] [place] [address] Care Team Providers Care Fish Farm Laborer Name Role Phone Kelvin Melton MD Primary Care Provider [phone] Encounter Details Date Type Department Care Team (Latest Contact Info) Description 12/09/2024 Lab Requisition [facility] - Main Lab [address] [facility] [place] [address] Miah Sevilla MD [address] [place] [address] Encounter for sterilization Social History Tobacco Use Types Packs/Day Years [...] on file Sexual Orientation Not on file documented as of this encounter Plan of Treatment Not on file documented as of this encounter Procedures Procedure Name Priority Date/Time Associated Diagnosis Comments TISSUE EXAM Routine 12/06/2024 Encounter for sterilization documented in this encounter Results * Tissue Exam (12/06/2024) Final Diagnosis A. Vas deferens, right, vasectomy: - Segment of vas deferens with complete cross section of wall and lumen identified. B. Vas deferens, left, vasectomy: - Segment of vas deferens with complete cross section of wall and lumen identified. 12/12/2024 2:05 PM EDT [facility] at 1405 EDT Clinical Information Z30.2 Encounter for sterilization [id number] 12/12/2024 2:05 PM EDT [facility] Gross Description A. Vas Deferens, [...] embedding orientation.) /al 12/12/2024 2:05 PM EDT [facility] Disclaimer Unless otherwise specified, all tissue is 10% NB formalin fixed and paraffin embedded. Technical pathology services provided by [facility] Urology at [address], [place] [address] (CLIA #[id number]/Dona Griffin MD, Leather Roller) 12/12/2024 2:05 PM EDT [facility] Tissue Structure of left vas deferens / Unknown 12/06/2024 12/09/2024 4:32 PM EDT Tissue specimen (specimen) Structure of left vas deferens / Unknown 12/06/2024 12/09/2024 4:32 PM EDT Miah Sevilla MD LAB PATHOLOGY ORDERABLES Final Result [facility] [address] [place] [address], documented in this encounter Visit Diagnoses Diagnosis Encounter for sterilization Sterilization documented in this encounter Care Teams Fish Farm Laborer Relationship Specialty Start Date End Date [place] [address] PCP - General Family Medicine 12/09/24 documented as of this encounter
== END 2024-12-26 16:08 | disposition home or self-care (01) ==
LOC: HO.HCS 14:46
PROVIDERS: PCP Internal Medicine; Visit Provider Nurse Practitioner Family
DX: Z95.818 Presence of other cardiac implants and grafts (principal); I63.50 Cerebral infarction due to unspecified occlusion or stenosis of unspecified cerebral artery
CPT/HCPCS: 99213

== ENCOUNTER 2025-01-22 12:58 | Outpatient (REF) | payer OTHER, SELFPAY ==
[2025-01-22 13:14] VITALS: BP 126/70; PULSE 83; RESP 19; O2SAT 100; BMI 21.1
--- NOTE | 2025-01-22 13:45 | PM.OP ---
Brief Operative Note Date of Service: 01/22/25 Pre-op diagnosis: Implantable loop recorder in place Post-op diagnosis: same Procedure: Removal of implantable loop recorder Implants: After obtaining consent patient was brought to the minor surgery suite. Patient was then laid on the operating table in supine position. The implantable loop recorder head was then identified and marked. The area was then prepped and draped in a sterile fashion. Patient was then given 2% lidocaine with epinephrine intradermally and subcutaneously around the head of the device. A small incision was then made. After some blunt dissection and with help of Catie forcep the device was then removed. The wound was then closed with Steri-Strips and sterile dressing applied Surgeon: Kam Zambrano MD Was an Health Information Provider used for this Procedure?: No Estimated blood loss (mL): 5 Pathology: none sent Condition: stable Disposition: same day
--- OUTSIDE RECORDS SUMMARY | 2025-01-22 19:59 | XMS_ITS | Clinical Summary ---
Author Organization [facility] Address [address] [place] [address] Phone Care Team Providers Care Emergency Department Name Role Phone Santhosh Blancas Primary Care Provider Balwinder Willard Unavailable [phone] Santhosh Blancas Unavailable Social History Tobacco Use Types Packs/Day Years Used Date Smoking Tobacco: Never Assessed Sex and Gender Information Value Date Recorded Sex Assigned at Not on file Legal Sex Male 8:06 PM EDT Gender Identity Not on file Sexual Orientation Not on file Plan of Treatment Not on file Care Teams Emergency Department Relationship Specialty Start Date End Date Santhosh Blancas PCP - General 10/18/17 Balwinder Willard [address] [place] [id number] PCP - Insurance PCP 12/25/08 Santhosh Blancas PCP - Clinical PCP 10/18/17
--- OUTSIDE RECORDS SUMMARY | 2025-01-22 19:59 | XMS_ITS ---
Author Name [facility] Organization Unknown Care Team Organization Name Specialty Phone Email Start Date End Da te [facility] 06/20/2022 10/02/19 24 [facility] 12/21/2021 10/02/19 24
--- OUTSIDE RECORDS SUMMARY | 2025-01-22 20:00 | XMS_ITS | Data Portability ---
Author Organization [place] - [facility], Allergy Address [address] [place] [address] Assessment Encounter Date Assessment Date Assessment LastModified [...] audio gram No observ ation record ed. [email or web address] Not Available 08/13 14:23:19 04/12/19 25 audio gram No observ ation record ed. BARCODE Not Available 2024 13:16:37 06/12/19 25 audio gram No observ ation record ed. BARCODE Not Available 2024 10:31:14 Result Notes None recorded. Problems Name Problem SNOMED Code Status Onset Date Resolution Date Notes Provider Name and Address Organization Details Recorded Time Mixed conductive and sensorineur al hearing loss, bilateral 928624906 Active 2023 ROI MEJÍA, AUD [address] [address], [place], [address] , [facility] - [facility] 07/09/202 4 14:09:33 Sensorineur al hearing loss of bilateral ears 607000700 Active 2023 ORI MEJÍA, AUD [address] [facility],[address] [address], [place], [address], [facility] - [facility] 4 14:09:59 Bilateral tinnitus 7537842929388 Active 2023 SUNIL Baird MD [address] [facility],[address] [address], [place], [address], [facility] - [facility] 4 14:32:55 Otorrhea of right ear 3352213792354 106 Active 2024 ASHU CORDOVA PA-C [address] [facility],[address] [address], [place], [address], [facility] - [facility] 5 09:30:01 Otorrhagia of right ear 5324242340565 109 Active 2024 ASHU CORDOVA PA-C [address] [facility],[address] [address], [place], [address], [facility] - [facility] 5 12:09:53 Problem Notes None recorded. Procedures Surgical History Date Name Laterality Status Provider Name and Address Organization Details Recorded Time 06/10/2024 Comp Audio with Tymps - 00816 & 69428 completed YVAN HERNANDEZ, SHILOH [address] [facility],[address], [address], [facility] - [facility] 06/10/2024 10:54:11 04/12/2024 Comp Audio with Tymps - 24325 & 44087 completed KAUR MUJICA [place], CCC-A [address] [facility],[address] [address], [place], [address], [place] - [facility] 04/12/2024 11:37:22 08/22/2023 Comp Audio with Tymps - 39402 & 65002 completed ORI MEJÍA, AUD [address] [facility],[address] [address], [place], [address], [facility] - [facility] 08/22/2023 14:09:18 Imaging Results None recorded. Procedure [...] Updated DateTime 03/25/2024 170.18 cm 20.4 kg/m2 74855.01 g Debi Gupta [place] - [facility] 03/25/2024 09:13:25 Date Recorded Body height Body mass index (BMI) Body weight Provider Name and Address Organization Details Last Updated DateTime 06/10/2024 170.18 cm 20.4 kg/m2 38558.01 g Debi Gupta [place] - [facility] 06/10/2024 11:02:33 Date Recorded Body height Body mass index (BMI) Body weight Provider Name and Address Organization Details Last Updated DateTime 08/22/2023 170.18 cm 20.4 kg/m2 96383.01 g Shilohvalentino Franks [place] - [facility] 08/22/2023 14:16:38 Social History None recorded. Functional Status None recorded. Mental Status None recorded. Family History Nothing Reported. Medical History Condition Response Hearing Loss Y Past Encounters Encounter ID Performer Location Encounter Start Date Encounter Closed Date Diagnosis/Indication Diagnosis SNOMED-CT Code Diagnosis ICD10 Code Diagnosis IMO Codes Diagnosis Note [id number] SUNIL DUBOSE MD [facility] [address] [address] 08/22/2023 13:01:12 08/22/2023 14:32:27 Sensorineural hearing loss of bilateral ears 305222387 H90.3 Audiologic al evaluation results:Ri ght ear:Normal [...] aid evaluation . History of cerebrovascular accident 898114631 Z86.73 Bilateral tinnitus 60830 19476 102 H93.13 Ear exam was normal. Audiogram was reviewed. We discussed the associatio n between sensorineu ral hearing loss and tinnitus. We discussed masking for tinnitus. 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 He reports that [employer]ra have been the highest rated hearing aids, Lumity second. He knows to contact me if he decides to get his hearing aids here. [id number] ASHU CORDOVA PA-C [facility] [address] [address] 03/25/2024 08:41:43 03/25/2024 14:13:59 Sensorineural hearing loss of bilateral ears 932560020 H90.3 Otorrhagia of right ear 9390250642 459417 H92.21 [id number] ASHU CORDOVA PA-C [facility] [address] [address] 04/12/2024 10:52:04 04/12/2024 12:02:00 Bilateral tinnitus 4046104137 102 H93.13 Audiologic al evaluation results: Left ear: Mild-moder ate SNHL with excellent word recognitio n. Could not visualize Right TM. Tympanomet ry: Right Ear:Type A Left Ear:Type Ad Otorrhagia of right ear 7887794282 466649 H92.21 Sensorineu ral hearing loss of bilateral ears 690512667 H90.3 [id number] ASHU CORDOVA PA-C [facility] [address] [address] 06/10/2024 10:21:20 06/10/2024 11:27:06 Mixed conductive and sensorineural hearing loss, bilateral 133395485 H90.6 Audiologic al evaluation results: Moderate to severe mixed hearing loss with excellent word recognitio n, bilaterall y. Decrease in hearing along with a newly found MHL verse the usual SNHL seen in previous testing. Tympanomet ry:Right Ear:Type CLeft Ear:Type C Otorrhagia of right ear 1588207293 114691 H92.21 Health Concerns Section Related Observation LastModified by Organization Detai ls LastModified Time None Recorded Concern Status LastModified by Organization Details LastModified Time None Recorded Advance Directives Directive None Recorded Payers Insurance Date Sequence Insurance Name Policy Number Policy Williamson Covered Member ID Williamson Member ID Guarantor Name 06/10/2024 1 [employer] [id number] Jose Arcoseod [id number] 2 Jose Musa Emanuel Notes Date Note Type Note Provider Name and Address Organization Details Recorded Time 08/22/2023 text/html ROS as noted in the [facility] He presents with hearing loss. Hx of many ear infections over the years. He feels he is hearing worse over time. Audio showed normal sloping to severe SNHL AD and mild sloping to moderate SNHL . He has a history of a CVA with vision loss. It is unclear why he had CVA. He has tinnitus AU. SUNIL DUBOSE MD [address] [place] [address],[address], [address], [place] - [facility] 08/22/2023 14:33:17 03/25/2024 text/html ROS as noted in the [facility] 43yo male with bilateral sensorineural hearing loss [...] 2020 without retrocochlear pathology. CAPO AWAN MD [address] [place] [address],[address] [address], [place], [address], [place] - [facility] 03/26/2024 08:38:21 04/12/2024 text/html ROS as noted in the [facility] 43yo male with bilateral sensorineural hearing loss presents for reevaluation of right otorrhagia. History consistent with right TM perforation 1 month ago in the setting of URI. He denies ear pain or drainage. Right-sided hearing has slightly improved, but has not returned to baseline. LIS JEAN BAPTISTE MD [address] [facility],[address], [address], [facility] 04/13/2024 06:52:28 06/10/2024 text/html ROS as noted [...] for retrocochlear pathology. GREGORIO GONZALEZ MD [address] [facility],[address] [address], [place], [address], [facility] 06/10/2024 22:06:04
--- OUTSIDE RECORDS SUMMARY | 2025-01-22 20:00 | XMS_ITS | Clinical Summary ---
Author Organization [address] [facility] Address [address] [place] [address] Phone Care Team Providers Care Lay Out Maker Name Role Phone Kelvin Melton MD Primary Care Provider [phone] Encounters Date Type Department Care Team Description 12/09/2024 Lab Requisition [facility] - Main Lab [address] [facility] [place] [address] Miah Sevilla MD Encounter for sterilization 11/07/2024 Telephone [facility] Cardiology [facility] [address] [place] [address] Provider, Not In System from Last 3 Months Surgical History Surgery Date Site/Laterality Comments TONSILLECTOMY PROCEDURE: HISTORICAL TONSILLECTOMY ESOPHAGOGASTRODUODENOSCOPY PROCEDURE: [place] ESOPHAGOGASTRODUODENOSCOPY TRANSORAL DIAGNOSTIC; COMMENT: 2009 COLONOSCOPY PROCEDURE: [place] COLONOSCOPY STOMA DX INCLUDING COLLJ SPEC SPX; COMMENT: 2009 OTHER SURGICAL HISTORY PROCEDURE: [place] UNLISTED PROCEDURE PELVIS/HIP JOINT; COMMENT: nerve impingement [...] on file Sexual Orientation Not on file Last Filed Vital Signs Vital Sign Reading [...] and lumen identified. 12/12/2024 2:05 PM EDT [facility] at 1405 EDT Clinical Information Z30.2 Encounter for sterilization [id number] 12/12/2024 2:05 PM EDT [facility] Gross Description A. Vas Deferens, Right, [...] embedding orientation.) /al 12/12/2024 2:05 PM EDT [facility] Disclaimer Unless otherwise specified, all tissue is 10% NB formalin fixed and paraffin embedded. Technical pathology services provided by [facility] Urology at [address] [place] [address] [address], [place] [address] (CLIA #[id number]/Dona Griffin MD, Home Care Music Therapist) 12/12/2024 2:05 PM EDT [facility] Tissue Structure of left vas deferens / Unknown 12/06/2024 12/09/2024 4:32 PM EDT Tissue specimen (specimen) Structure of left vas deferens / Unknown 12/06/2024 12/09/2024 4:32 PM EDT Miah Sevilla MD LAB PATHOLOGY ORDERABLES Final Result [facility] H[facility]PITAL LAB [address] [place] [address], from Last 3 Months Insurance [employer] Care Teams Lay Out Maker Relationship Specialty Start Date End Date Kelvin Melton MD [address] [place] [address] PCP - General Family Medicine 12/09/24
--- OUTSIDE RECORDS SUMMARY | 2025-01-22 20:00 | XMS_ITS | Encounter Summary ---
Author Organization [facility] Address [address] [place] [address] Care Team Providers Care Bottle And Glass Inspector Name Role Phone Kelvin Melton MD Primary Care Provider [phone] Encounter Details Date Type Department Care Team (Latest Contact Info) Description 12/09/2024 Lab Requisition [facility] - Main Lab [address] [facility] [place] [address] Miah Sevilla MD [address] [place] [address] Encounter for sterilization Social History [...] lumen identified. 12/12/2024 2:05 PM EDT [facility] at 1405 EDT Clinical Information Z30.2 Encounter for sterilization [id number] 12/12/2024 2:05 PM EDT [facility] Gross Description A. Vas Deferens, [...] embedding orientation.) /al 12/12/2024 2:05 PM EDT [facility] Disclaimer Unless otherwise specified, all tissue is 10% NB formalin fixed and paraffin embedded. Technical pathology services provided by [facility] at [address], [place] [address] (CLIA #[id number]/Dona Griffin MD, Condemnation Engineer) 12/12/2024 2:05 PM EDT [facility] Tissue Structure of left vas deferens / Unknown 12/06/2024 12/09/2024 4:32 PM EDT Tissue specimen (specimen) Structure of left vas deferens / Unknown 12/06/2024 12/09/2024 4:32 PM EDT Miah Sevilla MD LAB PATHOLOGY ORDERABLES Final Result [facility] [address] [place] [address], documented in this encounter Visit Diagnoses Diagnosis Encounter for sterilization Sterilization documented in this encounter Care Teams Bottle And Glass Inspector Relationship Specialty Start Date End [place] [address] PCP - General Family Medicine 12/09/24 documented as of this encounter
--- OUTSIDE RECORDS SUMMARY | 2025-01-22 20:00 | XMS_ITS | Clinical Summary ---
Author Organization [facility] Address Formerly [facility] [employer] [address] [address] Phone Care Team Providers Care Side Stapler Name Role Phone Pcp, Not Required Primary [...] PPO CIGNA PPO CIGNA PPO Care Teams Side Stapler Relationship Specialty Start Date End Date Pcp, Not Required PCP - General 01/18/23 Additional Source Comments The information contained in this document represents components of the legal health record. It is not the complete legal health record.[facility]
== END 2025-01-22 12:59 | disposition home or self-care (01) ==
LOC: HO.MS 12:58
PROVIDERS: PCP Family Medicine; Visit Provider Internal Medicine Cardiovascular Disease
PROC: (CPT 33286; principal; 2025-01-22 13:30)
DX: Z95.818 Presence of other cardiac implants and grafts (principal); I63.50 Cerebral infarction due to unspecified occlusion or stenosis of unspecified cerebral artery
CPT/HCPCS: 33286; J2004

== ENCOUNTER → 2025-01-22 12:58 | Outpatient (BNV) | payer OTHER, SELFPAY | PROVIDERS: PCP Family Medicine; Visit Provider Internal Medicine Cardiovascular Disease | DX: Z45.09 Encounter for adjustment and management of other cardiac device (principal) | CPT/HCPCS: 33286 ==

== ENCOUNTER 2025-02-04 10:10 | Outpatient (AMB) | payer OTHER, SELFPAY ==
[2025-02-04 10:15] VITALS: BP 90/52; PULSE 83; BMI 20.6
--- NOTE | 2025-02-04 10:15 | A.OFFVIS_ITS ---
Vital Signs 02/04/25 10:15 Height 5 ft 7 in Weight 131 lb 6.328 oz BMI 20.6 BP 90/52 L Blood Pressure Location Lt brachial Position Sitting Pulse 83 Intake Visit Reasons: wound ck Grain Inspector Required: No Allergies No Known Allergies Allergy (Verified 02/04/25 10:27) Medication List - Last Reconciled 02/04/25 by Leti Bonner NP-C citalopram 20 mg PO DAILY dicyclomine 1 cap PO TID PRN HPI HPI wound ck: Details: Jose is a 44-year-old male with past medical history of anxiety, CVA, ILR placement 10/30/2020 who underwent ILR removal on 01/22/2025 and now presents for follow-up. Long-term monitoring showed no atrial fibrillation. Today he reports that his ILR site feels well with no concerns. Cardiac evaluation after his CVA in 2020 and no known cause has been identified. He is now believing that his CVA was caused by COVID vaccine. He has not been having any concerning symptoms including, shortness of breath or chest discomfort. He has had no recurrent neurological changes. He believes he is 90-95% recovered from his CVA. He has some minimal in coordination with the left side. [facility] Medical History Elevated cholesterol Cerebrovascular accident involving posterior circulation Bilateral hemianopia Anxiety TIA (transient ischemic attack) Social History Household Members: Significant Other Housing: House Do you presently have visiting nurse or other home services: No Alcohol intake: never Patient Tobacco Use Status: Never used Tobacco Second Hand Smoke Exposure: No service: No Current occupational status: employed Review of Systems Const All systems reviewed & are unremarkable except as noted in HPI and below ENT Denies dizziness Card Denies chest pain, Denies chest pain at rest, Denies chest pain with activity, Denies rapid heart rate, Denies pedal edema, Denies edema, Denies leg edema, Denies lightheadedness, Denies palpitations, Denies dyspnea, Denies dyspnea on exertion and Denies orthopnea Resp Denies cough, Denies dyspnea and Denies dyspnea on exertion GI Denies hematochezia and Denies change in stool character Musc Denies abnormal gait, Denies limited range of motion, Denies muscle cramps, Denies muscle weakness, Denies numbness, Denies radiating pain into limb, Denies stiffness and Denies tingling Neuro Denies abnormal gait, Denies dizziness, Denies numbness and Denies tingling Endo Denies palpitations Physical Exam Const General: cooperative, healthy appearing, comfortable and no acute distress Orientation/consciousness: patient oriented x3 Neck Neck: Yes normal visual inspection Chest Other: ILR site with steri strips intact - strips removed and incision fully intact, no redness, drainage or any signs of infection. Resp Effort & Inspection: normal respiratory effort Cardio Rate: regular rate Rhythm: regular rhythm Heart sounds: S1 normal heart sound present, S2 normal heart sound present and no murmurs Neuro General: patient oriented x3 Extrem General: Yes normal to inspection Psych Appearance: grossly normal Mental Status: mental status grossly normal Speech and movement: Normal speech and movement present Assessment & Plan Assessment & Plan (1) Visit for wound check: Code(s): Z51.89 - Encounter for other specified aftercare Category: Medical Plan: ILR removal site well approximated, no signs of infection. Left open to air. (2) Implantable loop recorder present: Code(s): Z95.818 - Presence of other cardiac implants and grafts Category: Medical Plan: Loop recorder placed 10/30/2024 following cryptogenic stroke. Long-term monitoring has shown no atrial fibrillation. Last interrogation 11/07/2024 showing no events. ILR removed on 01/22/25. (3) Cerebrovascular accident involving posterior circulation: Code(s): I63.50 - Cerebral infarction due to unspecified occlusion or stenosis of unspecified cerebral artery Category: Medical Plan: History of CVA, patient reports no known cause. He believes it may have been from COVID vaccine. No recurrent events. cardiology follow up as needed Plan Time spent on chart review, documentation, interview, assessment. Coding Level of Care Code Est Pt Level 3 (18428) Add On Problem Visit Only Diagnoses Visit for wound check Z51.89 Implantable loop recorder present Z95.818 Cerebrovascular accident involving posterior circulation I63.50 Time Spent (min) 20
--- OUTSIDE RECORDS SUMMARY | 2025-02-04 11:11 | XMS_ITS | Clinical Summary ---
Author Organization [facility] Address [address] [place] [address] Phone Care Team Providers Care Manager Medical Name Role Phone Santhosh Blancas Primary Care Provider [phone] Balwinder Willard Unavailable [phone] Santhosh Blancas Unavailable Social History Tobacco Use Types Packs/Day Years Used Date Smoking Tobacco: Never Assessed Sex and Gender Information Value Date Recorded Sex Assigned at Not on file Legal Sex Male 8:06 PM EDT Gender Identity Not on file Sexual Orientation Not on file Plan of Treatment Not on file Care Teams Manager Medical Relationship Specialty Start Date End Date Santhosh Blancas PCP - General 10/18/17 Balwinder Willard [address] [place] [id number] PCP - Insurance PCP 12/25/08 Santhosh Blancas PCP - Clinical PCP 10/18/17
--- OUTSIDE RECORDS SUMMARY | 2025-02-04 11:11 | XMS_ITS | Encounter Summary ---
Author Organization [facility] Prior to 12/15/2023 Address [address] [place] [address] Care Team Providers Care Press Loader Name Role Phone Santhosh Blancas MD Primary Care Provider [phone] [facility], Pcp Primary Care Provider Unavailabl e Encounter Details Date Type Department Care Team Description 01/19/2021 SCAN Medical Records [address] [place] [address] Vaishnavi Moreau MD Social History Tobacco Use Types Packs/Day Years Used Date Smoking Tobacco: Former Cigarettes Q uit: 02/13/2007 Smokeless Tobacco: Former Quit: 02/13/2014 Comments:quite cigaretts 02/13 , chewing tobacco 02/13/2014 Alcohol Use Standard Drinks/Week Comments Yes 0 (1 standard drink = 0.6 oz pur e alcohol) rarely Sex Assigned at Date Recorded Not on file COVID-19 Exposure Response Date Recorded In the last month, have you been in contact with someone who was confirmed or suspected to have Coronavirus / COVID-19? No / Unsure 01/20/2021 4:03 PM EST documented as of this encounter Plan of Treatment Not on file documented as of this encounter Procedures Procedure Name Priority Date/Time Associated Diagnosis Comments OUTSIDE MRI/MRA Routine 01/19/2021 documented in this encounter Results * OUTSIDE MRI/MRA (01/19/2021) Provider Default RADIOLOGY documented in this encounter Visit Diagnoses Not on filedocumented in this encounter Care Teams Press Loader Relationship Specialty Start Date End Date Santhosh Blancas MD [address] [place] [address] PCP - General Internal Medicine 10/07/15 03/26/23 [facility], [address] [address] PCP - General Internal Medicine 03/27/23 documented as of this encounter
--- OUTSIDE RECORDS SUMMARY | 2025-02-04 11:11 | XMS_ITS | Encounter Summary ---
Author Organization [facility] Prior to 12/15/2023 Address [address] [place] [address] Care Team Providers Care Training And Development Professional Name Role Phone Santhosh Blancas MD Primary Care Provider [phone] [facility], Pcp Primary Care Provider Unavailabl e Encounter Details Date Type Department Care Team Description 10/30/2021 Pt. Non Urgent Medical Question Adult Medicine [address] [address] Mikey Courtney PA-C Social History Tobacco Use Types Packs/Day Years Used Date Smoking Tobacco: Former Cigarettes Q uit: 02/13/2007 Smokeless Tobacco: Former Quit: 02/13/2014 Comments:quite cigaretts 02/13 , chewing tobacco 02/13/2014 Alcohol Use Standard Drinks/Week Comments Yes 0 (1 standard drink = 0.6 oz pur e alcohol) rarely Sex Assigned at Date Recorded Not on file documented as of this encounter Miscellaneous Notes * Telephone Encounter - Dixie Farias M.A. - 11/01/2021 8:27 AM EDTFrom: Jose Emanuel To: Alex Courtney Sent: 10/30/2021 10:18 AM EDT Subject: Covid and Flu Shots Hi, when should I get the second booster? I had the first booster back in January at the same timeas the flu shot. documented in this encounter Plan of Treatment Not on file documented as of this encounter Visit Diagnoses Not on filedocumented in this encounter Care Teams Training And Development Professional Relationship Specialty Start Date End Date Santhosh Blancas MD [address] [place] [address] PCP - General Internal Medicine 10/07/15 03/26/23 [facility], Pcp [address] [place] [address] PCP - General Internal Medicine 03/27/23 documented as of this encounter
--- OUTSIDE RECORDS SUMMARY | 2025-02-04 11:11 | XMS_ITS | Encounter Summary ---
Author Organization [facility] Prior to 12/15/2023 Address [address] [place] [address] Care Team Providers Care Billing Analyst Name Role Phone Santhosh Blancas MD Primary Care Provider [phone] [facility], Pcp Primary Care Provider Unavailabl e Encounter Details Date Type Department Care Team Description 12/09/2021 Pt. Non Urgent Medical Question Adult Medicine - [address] [address] Santhosh Blancas MD [address] [place] [address] Social History Tobacco Use Types Packs/Day Years [...] Telephone Encounter - Dixie Farias M.A. - 12/09/2021 10:34 AM EDTFrom: Jose Emanuel To: Samantha Blancas Sent: 12/09/2021 10:24 AM EDT Subject: Medication I was refilled my Lipitor, but only received 19 pills. I've done the bloodwork previously as requested. Why such a run around seeing that I was in the office a year ago? documented in this encounter Plan of Treatment Not on file documented as of this encounter Visit Diagnoses Not on filedocumented in this encounter Care Teams Billing Analyst Relationship Specialty Start Date End Date Santhosh Blancas MD [address] [place] [address] PCP - General Internal Medicine 10/07/15 03/26/23 [facility], [address] [address] PCP - General Internal Medicine 03/27/23 documented as of this encounter
--- OUTSIDE RECORDS SUMMARY | 2025-02-04 11:11 | XMS_ITS | Encounter Summary ---
Author Organization [facility] Prior to 12/15/2023 Address [address] [place] [address] Care Team Providers Care Project Coordinator Name Role Phone Santhosh Blancas MD Primary Care Provider [phone] [facility], [facility], Pcp Primary Care Provider [facility] Encounter Details Date Type Department Care Team Description 10/13/2016 Liquified Natural Gas Specialist Report Medical Records [address] [place] [address] Edgardo Acuna Social History Tobacco Use Types Packs/Day Years [...] on filedocumented in this encounter Care Teams Project Coordinator Relationship Specialty Start Date End Date Santhosh Blancas MD [address] [place] [address] PCP - General Internal Medicine 10/07/15 03/26/23 [facility], Pcp [address] [place] [address] PCP - General Internal Medicine 03/27/23 documented as of this encounter
--- OUTSIDE RECORDS SUMMARY | 2025-02-04 11:11 | XMS_ITS | Encounter Summary ---
Author Organization [facility] Prior to 12/15/2023 Address [address] [place] [address] Care Team Providers Care Welfare Manager Name Role Phone Santhosh Blancas MD Primary Care Provider [phone] [facility], Pcp Primary Care Provider Unavailabl e Reason for Referral * EXTERNAL (Routine) - Authorized/Booked Specialty Diagnoses / Procedures Referred By Contrajni t Referred To Contact Pulmonology Procedures REFERRAL TO PULMONOLOGY Pily Carranza NP [address] [place] [address] Anjum Slater MD [facility] [address] [place] [address] Referral ID Status Reason Start Date Expiration Date V isits Requested Visits Authorized [id number] Authorized/B ooked 04/05/2022 07/03/2022 1 1 Reason for Visit * Reason Onset Date Comments Boiler Installer Feedback 04/05/2022 Pulmonolgy Encounter Details Date Type Department Care Team Description 04/05/2022 Telephone Adult Medicine [address] [address] Pily Carranza NP [address] [place] [address] Boiler Installer Feedback (Pulmonolgy ) Social History Tobacco Use Types Packs/Day Years [...] encounter Miscellaneous Notes * Telephone Encounter - Pily Carranza NP - 04/05/2022 9:44 AM EST It is an external referral and when we do those the auto text DOESNT populate. * Telephone Encounter - Luis Carlos Segura - 04/05/2022 9:36 AM EST Nikolay winters pended pulmonolgy referral the smart text did not populate. I have pendede a new order please review and sign. documented in this encounter Plan of Treatment Not on file documented as of this encounter Visit Diagnoses Not on filedocumented in this encounter Care Teams Welfare Manager Relationship Specialty Start Date End Date Santhosh Blancas MD [address] [place] [address] PCP - General Internal Medicine 10/07/15 03/26/23 [facility], [address] [address] PCP - General Internal Medicine 03/27/23 documented as of this encounter
--- OUTSIDE RECORDS SUMMARY | 2025-02-04 11:12 | XMS_ITS | Encounter Summary ---
Author Organization [facility] Prior to 12/15/2023 Address [address] [place] [address] Care Team Providers Care Roll Up Operator Name Role Phone Santhosh Blancas MD Primary Care Provider [phone] [facility], Pcp Primary Care Provider Unavailabl e Encounter Details Date Type Department Care Team Description 05/04/2018 Lab Instructor Report Medical Records [address] [place] [address] Oliver Woodall MD Social History Tobacco Use Types Packs/Day [...] on filedocumented in this encounter Care Teams Roll Up Operator Relationship Specialty Start Date End Date Santhosh Blancas MD [address] [place] [address] PCP - General Internal Medicine 10/07/15 03/26/23 [facility], Pcp [address] [place] [address] PCP - General Internal Medicine 03/27/23 documented as of this encounter
--- OUTSIDE RECORDS SUMMARY | 2025-02-04 11:12 | XMS_ITS | Encounter Summary ---
Author Organization [facility] Prior to 12/15/[address] [place] [address] Care Team Providers Care Fisher Crab Name Role Phone Santhosh Blancas MD Primary Care Provider [phone] Susan Ibarra Primary Care Provider Unavaila ble Santhosh Blancas MD Primary Care Provider [phone] [facility] Primary Care Provider Unavailabl e Reason for Visit * Reason Onset Date Comments Mychart Rx Refill 04/17/2015 Encounter Details Date Type Department Care Team Description 04/17/2015 Refill Urology [address] [place] [address] Mohinder Figueroa MD Mychart Rx Refill Social History Tobacco Use Types Packs/Day Years [...] encounter Miscellaneous Notes * Telephone Encounter - Aram Mccormack M.A. - 04/17/2015 3:55 PM EST Last office visit 10.10.14 Last rx was #6 with 11 refills on 02.28.14 * Telephone Encounter - Chao Arriola - 04/17/2015 3:44 PM ESTFrom: Jose Emanuel To: Mohinder Figueroa MD Sent: 04/17/2015 8:32 AM EST Subject: Medication Renewal Request Original authorizing provider: MD Jose Buckley would like a refill of the following medications: tadalafil (CIALIS) 20 MG tablet [Mohinder Figueroa MD] Preferred pharmacy: [id number] [place], [place] - [address] [place] [address] Comment: I didn't realize my recent prescription date . documented in this encounter Plan of Treatment Not on file documented as of this encounter Visit Diagnoses Diagnosis Erectile dysfunction- Primary Impotence of organic origin documented in this encounter Care Teams Fisher Crab Relationship Specialty Start Date End Date Santhosh Blancas MD [address] [place] [address] PCP - General 10/07/09 05/14/15 Susan Ibarra [address] [place] [address] PCP - General Internal Medicine 05/15/15 10/06/15 Santhosh Blancas MD [address] [place] [address] PCP - General Internal Medicine 10/07/15 03/26/23 [facility], Pcp [address] [place] [address] PCP - General Internal Medicine 03/27/23 documented as of this encounter
--- OUTSIDE RECORDS SUMMARY | 2025-02-04 11:12 | XMS_ITS | Encounter Summary ---
Author Organization [employer] [facility] Prior to 12/15/[address] [place] [address] Care Team Providers Care Healthcare Educator Name Role Phone Santhosh Blancas MD Primary Care Provider [facility], Pcp Primary Care Provider Unavailabl e Encounter Details Date Type Department Care Team Description 02/07/2017 SCAN Medical Records [address] [place] [address] Edgardo Acuna Social History Tobacco Use Types [...] Name Priority Date/Time Associated Diagnosis Comments OUTSIDE ECHO Routine 02/07/2017 documented in this encounter Results * OUTSIDE ECHO (02/07/2017) Provider Default CARDIOLOGY documented in this encounter Visit Diagnoses Not on filedocumented in this encounter Care Teams Healthcare Educator Relationship Specialty Start Date End Date Santhosh Blancas MD [address] [place] [address] PCP - General Internal Medicine 10/07/15 03/26/23 [facility], Pcp [address] [place] [address] PCP - General Internal Medicine 03/27/23 documented as of this encounter
--- OUTSIDE RECORDS SUMMARY | 2025-02-04 11:12 | XMS_ITS | Encounter Summary ---
Author Organization [facility] Prior to 12/15/2023 Address [address] [place] [address] Care Team Providers Care Creasing And Cutting Press Feeder Name Role Phone Santhosh Blancas MD Primary Care Provider [phone] [facility], Pcp Primary Care Provider Unavailabl e Reason for Visit * Reason Onset Date Comments Prior Authorization 12/24/2020 [id number] TO BOOK Encounter Details Date Type Department Care Team Description 12/24/2020 Telephone Cardio [facility] [address] [place] [id number] Jassi Lopez MD [address] [facility] [address] [place], [place] [phone] Prior Authorization ([id number] TO BOOK) Social History Tobacco Use Types Packs/Day Years [...] have Coronavirus / COVID-19? No / Unsure 12/17/2020 9:27 AM EDT documented as of this encounter Miscellaneous Notes * Telephone Encounter - Shauna Sal - 12/24/2020 11:50 AM EST [id number] TO BOOK (INPATIENT) Auth# [id number] Valid 01/14/21-01/15/21 [employer] ins verified Provider: NOAH [place]: [facility] documented in this encounter Plan of Treatment Not on file documented as of this encounter Visit Diagnoses Not on filedocumented in this encounter Care Teams Creasing And Cutting Press Feeder Relationship Specialty Start Date End Date Santhosh Blancas MD [address] [place] [address] PCP - General Internal Medicine 10/07/15 03/26/23 [facility] [address] [address] PCP - General Internal Medicine 03/27/23 documented as of this encounter
--- OUTSIDE RECORDS SUMMARY | 2025-02-04 11:12 | XMS_ITS | Encounter Summary ---
Author Organization [facility] Address [address] [place] [address] Care Team Providers Care Solids Control Technician Name Role Phone Kelvin Melton MD Primary Care Provider [phone] Encounter Details Date Type Department Care Team (Latest Contact Info) Description 12/09/[address] [facility] - Main Lab [address] [facility] [place] [address] Miah Sevilla MD [address] [place] [address] Encounter for sterilization Social History [...] lumen identified. 12/12/2024 2:05 PM EDT [facility] at 1405 EDT Clinical Information Z30.2 Encounter for sterilization [id number] 12/12/2024 2:05 PM EDT [facility] Gross Description A. Vas Deferens, [...] embedding orientation.) /al 12/12/2024 2:05 PM EDT [facility] Disclaimer Unless otherwise specified, all tissue is 10% NB formalin fixed and paraffin embedded. Technical pathology services provided by [facility] at [address], [place] [address] (CLIA #[id number]/Dona Griffin MD, Ase Certified Technician) 12/12/2024 2:05 PM EDT [facility] Tissue Structure of left vas deferens / Unknown 12/06/2024 12/09/2024 4:32 PM EDT Tissue specimen (specimen) Structure of left vas deferens / Unknown 12/06/2024 12/09/2024 4:32 PM EDT Miah Sevilla MD LAB PATHOLOGY ORDERABLES Final Result [facility] [address] [place] [address], documented in this encounter Visit Diagnoses Diagnosis Encounter for sterilization Sterilization documented in this encounter Care Teams Solids Control Technician Relationship Specialty Start Date End [place] [address] PCP - General Family Medicine 12/09/24 documented as of this encounter
--- OUTSIDE RECORDS SUMMARY | 2025-02-04 11:12 | XMS_ITS | Encounter Summary ---
Author Organization [facility] Prior to 12/15/2023 Address [address] [place] [address] Care Team Providers Care Turner In Name Role Phone Santhosh Blancas MD Primary Care Provider [phone] [facility], Pcp Primary Care Provider Unavailabl e Encounter Details Date Type Department Care Team Description 11/01/2020 Pt. Non Urgent Medical Question Adult Medicine - [address] [address] Santhosh Blancas MD [address] [place] [address] Social History Tobacco Use Types Packs/Day Years [...] have Coronavirus / COVID-19? No / Unsure 11/03/2020 1:17 PM EDT documented as of this encounter Miscellaneous Notes * Telephone Encounter - Pretty Le M.A. - 11/02/2020 8:36 AM EDTFrom: Jose Emanuel To: Samantha Blancas Sent: 11/01/2020 8:40 PM EDT Subject: Stroke Hi, it was confirmed I had a stroke on Monday and need to schedule an in person with Dr. Blancas this upcoming week. Please call me at [phone]. Thanks. documented in this encounter Plan of Treatment Not on file documented as of this encounter Visit Diagnoses Not on filedocumented in this encounter Care Teams Turner In Relationship Specialty Start Date End Date Santhosh Blancas MD [address] [place] [address] PCP - General Internal Medicine 10/07/15 03/26/23 [facility], Pcp [address] [place] [address] PCP - General Internal Medicine 03/27/23 documented as of this encounter
--- OUTSIDE RECORDS SUMMARY | 2025-02-04 11:12 | XMS_ITS | Clinical Summary ---
Author Organization [facility] Prior to 12/15/2023 Address [address] [place] [address] Care Team Providers Care Ambulance Dispatcher Name Role Phone [facility], Pcp Primary Care Provider Unavailabl e Allergies Active Allergy Reactions Severity Noted Date Comments Seasonal Allergies Runny Nose/Rhinitis 11/11/19 10 Shellfish Allergy Itching/Pruritus 12/22/2021 Medications Medication Sig Dispensed Refills Start Date End Date Status dicyclomine (BENTYL) 10 MG capsuleIndications:Sh ortness of breath Take 1 Cap by mouth daily. 0 09/20/2015 Active aspirin 81 MG EC tablet Take 81 mg by mouth daily. 0 Active atorvastatin (LIPITOR) 80 MG tabletIndications:His tory of CVA (cerebrovascular accident) Take 1 Tablet by mouth daily. 90 Tablet 1 06/30/2022 Active citalopram (CELEXA) 20 MG tabletIndications:Gen eralized anxiety disorder Take 1 Tablet by mouth daily. 30 Tablet 0 03/27/2023 Active Active Problems Problem Noted Date Panic attack 11/18/2020 Left homonymous hemianopsia 11/03/2020 Cryptogenic stroke 11/03/2020 Last Assessment & Plan: Child has had cryptogenic stroke with documented infarct on brain imaging. His evaluation has been unremarkable. He has an implantable loop recorder which is not shown evidence of atrial fibrillation or other concerning arrhythmias after nearly 2 years of monitoring. I believe at this point is reasonable to remove the ILR. I will refer him for removal through our office. In regards to secondary prevention although there is uncertainty regarding the etiology of his stroke I think he ought to continue on a low-dose of aspirin and statin therapy as these are low risk pharmacologic interventions in his case and even if the benefit is not substantial it likely outweighs the risk of continued medical therapy. I have not scheduled routine clinical follow-up at this time. I have given him my card and asked him to call with any questions or schedule appointment if any new clinical cardiac issues arise. Anxiety disorder 07/30/2019 Obstructive sleep apnea moderate RINKU 28 06/01/2018 Overview: SMS Home Polysomnogram: Date 05/30/2018; Wt 150#; RINKU 28, AI 6; HI 22; Unclassified apneas 1; Obstructive apneas 23; Central apneas 1; Mixed apneas 0; hypopneas 92; average oxygen saturation 95% (lowest 83% without saturations <88% for 5% or more of study) - Obstructive Sleep Apnea - moderate; mostly hypopneas with obstructive apneas; without sleep related hypoventilation by 2018 home polysomnogram. Insomnia 05/18/2018 Rhinitis 12/28/2015 Dyspnea 12/28/2015 Erectile dysfunction 08/05/2011 IBS (irritable bowel syndrome) 0 Resolved Problems Problem Noted Date Resolved Date PFO (patent foramen ovale) 11/18/202012/22 Overview: Underwent surgical intervention but couldn't locate a PFO - repeat bubble test normal Immunizations Name Administration Dates Next Due Influenza (> 6 Months) 02/26/2016,11/21/2014 Influenza Flu (PT Reported) 10/25/2021 Influenza Vaccine-quadrivalent 4 Years Plus 01/13 TD (STATE SUPPLIED FOR ADULTS AND CHILDREN) 02/2004 Family History Medical History Relation Name Comments Blindness Other great grand mother Cataract Negative Hx Glaucoma Negative Hx Macular Degeneration Negative Hx Strabismus Negative Hx Relation Name Status Comments Brother Alive Father Alive Mother Alive Other great grand mother Sister Alive Social History Tobacco Use Types Packs/Day Years Used Date Smoking Tobacco: Former Cigarettes Q uit: 02/13/2007 Smokeless Tobacco: Former Quit: 02/13/2014 Tobacco Cessation:Counseling Given: Not Answered Comments:quite cigaretts 02/13/07 , chewing tobacco 02/13/2014 Alcohol Use Standard Drinks/Week Comments Yes 0 (1 standard drink = 0.6 oz pur e alcohol) rarely Sex Assigned at Date Recorded Not on file Last Filed Vital Signs Vital Sign Reading Time Taken Comments Blood Pressure 102/80 09/27/2022 9:18 AM EDT Pulse 84 09/27/2022 9:18 AM EDT Temperature 37.4 C (99.4 F) 02/03/2020 8:39 AM EST Respiratory Rate 16 01/20/2021 4:07 PM EST Oxygen Saturation 99% 09/27/2022 9:18 AM EDT Inhaled Oxygen Concentration - - Weight 64.9 kg (143 lb) 09/27/2022 9:18 AM EDT Height 170.2 cm (5' 7 ) 09/27/2022 9:18 AM EDT Body Mass Index 22.4 09/27/2022 9:18 AM EDT Plan of Treatment Health Maintenance Due Date Last Done Comments Covid-19 Vaccine (#1) 05/11/1983 DTAP/TDAP/TD (1 - Tdap) 10/15/2004 10/14/2004 BASELINE HEALTH EXAM 40-64 2022 2009 INFLUENZA (#1) 2024 10/25/2021, 01/13, 02/26/2016, Additional history exists CHOLESTEROL SCREENING 09/03/2026 09/03/2021, 017 PNEUMOCOCCAL VACCINE FOR HIG H RISK PATIENTS (#1) 11/11/2047 Care Teams Ambulance Dispatcher Relationship Specialty Start Date End Date Community, Pcp PCP - General Internal Medicine 03/27/23
--- OUTSIDE RECORDS SUMMARY | 2025-02-04 11:12 | XMS_ITS | Clinical Summary ---
Author Organization [facility] Address [facility] [employer] [address] [address] Phone Care Team Providers Care Top Lift Compresser Name Role Phone Pcp, Not Required Primary [...] PPO CIGNA PPO CIGNA PPO Care Teams Top Lift Compresser Relationship Specialty Start Date End Date Pcp, Not Required PCP - General 01/18/23 Additional Source Comments The information contained in this document represents components of the legal health record. It is not the complete legal health record.[facility]
--- OUTSIDE RECORDS SUMMARY | 2025-02-04 11:12 | XMS_ITS | Encounter Summary ---
Author Organization [facility] Prior to 12/15/2023 Address [address] [place] [address] Care Team Providers Care Plastic Surgery Technician Name Role Phone Santhosh Blancas MD Primary Care Provider [phone] [facility] [place], Pcp Primary Care Provider Unavailabl e Encounter Details Date Type Department Care Team Description 11/25/2020 Pt. Non Urgent Medical Question Adult Medicine - [address] [id number] Santhosh Blancas MD [address] [place] [address] Social History Tobacco Use Types Packs/Day Years [...] have Coronavirus / COVID-19? No / Unsure 11/18/2020 11:23 AM EDT documented as of this encounter Miscellaneous Notes * Telephone Encounter - Ro Medina M.A. - 11/25/2020 11:39 AM EDTFrom: Jose Emanuel To: Samantha Blancas Sent: 11/25/2020 11:35 AM EDT Subject: Short Term Disability Christian Beaulieu received this information from the [employer] which is where my short term disability will be processed through (my claim ID is [id number]): Our records show that we have received the medical information on 11/18/2020 however, the information was incomplete. We have faxed the form to your provider on 11/20/2020 to obtain the information that we need. Please follow up with you Doctor to have information submitted to your claim to processyour benefit. Information can be sent to our fax number [phone] or email to [email or web address] with your claim number on any loose sheets of paper. documented in this encounter Plan of Treatment Not on file documented as of this encounter Visit Diagnoses Not on filedocumented in this encounter Care Teams Plastic Surgery Technician Relationship Specialty Start Date End Date Santhosh Blancas MD [address] [place] [address] PCP - General Internal Medicine 10/07/15 03/26/23 [facility], Pcp [address] [place] [address] PCP - General Internal Medicine 03/27/23 documented as of this encounter
--- OUTSIDE RECORDS SUMMARY | 2025-02-04 11:12 | XMS_ITS | Encounter Summary ---
Author Organization [facility] Prior to 12/15/2023 Address [facility] [place] [address] Care Team Providers Care Cake Former Name Role Phone Santhosh Blancas MD Primary Care Provider [phone] [facility], Pcp Primary Care Provider Unavailabl e Reason for Visit * Reason Onset Date Comments Automation Qtp Tester Feedback 12/23/2020 cryptogenic stro ke . Encounter Details Date Type Department Care Team Description 12/23/2020 Telephone Adult Medicine - [address] [address] Santhosh Blancas MD [address] [place] [address] Automation Qtp Tester Feedback (cryptogenic stroke .) Social History Tobacco Use Types Packs/Day Years [...] encounter Miscellaneous Notes * Telephone Encounter - Elton Streeter - 12/23/2020 2:[address] Blancas, You placed and order for pt to see Dr. Taylor at [facility] Cardiology, per [facility] the diagnosis of cryptogenic stroke is seen by neurology and or vascular, none of the Superintendent Overhead Distribution at [facility] seesfor this. We have closed the original order. Please determine an the medical side for which specialty you want patient to see and pend a new order for that specialty. Thanks documented in this encounter Plan of Treatment Not on file documented as of this encounter Visit Diagnoses Not on filedocumented in this encounter Care Teams Cake Former Relationship Specialty Start Date End Date Santhosh Blancas MD [address] [place] [address] PCP - General Internal Medicine 10/07/15 03/26/23 [facility], Pcp [address] [place] [address] PCP - General Internal Medicine 03/27/23 documented as of this encounter
--- OUTSIDE RECORDS SUMMARY | 2025-02-04 11:12 | XMS_ITS | Encounter Summary ---
Author Organization [facility] Prior to 12/15/2023 Address [address] [place] [address] Care Team Providers Care Mangle Press Catcher Name Role Phone Santhosh Blancas MD Primary Care Provider [phone] [facility], Pcp Primary Care Provider Unavailabl e Encounter Details Date Type Department Care Team Description 04/14/2021 Timber Management Specialist Report Medical Records [address] [place] [address] Mauro Kevin MD Social History Tobacco Use Types Packs/Day [...] on filedocumented in this encounter Care Teams Mangle Press Catcher Relationship Specialty Start Date End Date Santhosh Blancas MD [address] [place] [address] PCP - General Internal Medicine 10/07/15 03/26/23 [facility], Pcp [address] [place] [address] PCP - General Internal Medicine 03/27/23 documented as of this encounter
--- OUTSIDE RECORDS SUMMARY | 2025-02-04 11:12 | XMS_ITS | Encounter Summary ---
Author Organization [facility] Prior to 12/15/2023 Address [address] [place] [address] Care Team Providers Care Pressure Dispatcher Name Role Phone Santhosh Blancas MD Primary Care Provider [phone] Susan Ibarra Primary Care Provider Unavaila [facility] Santhosh Blancas MD Primary Care Provider [phone] [facility] [place] Primary Care Provider Unavailabl e Encounter Details Date Type Department Care Team Description 08/30/2012 Orders Only Urology [address] [place] [address] Mohinder Figueroa MD Social History Tobacco Use Types Packs/Day Years Used Date Smoking Tobacco: Never Alcohol Use Standard Drinks/Week Comments Yes 0 (1 standard drink = 0.6 oz pur e alcohol) rarely Sex Assigned at Date Recorded Not on file documented as of this encounter Plan of Treatment Not on file documented as of this encounter Visit Diagnoses Not on filedocumented in this encounter Care Teams Pressure Dispatcher Relationship Specialty Start Date End Date Santhosh Blancas MD [address] [place] [address] PCP - General 10/07/09 05/14/15 Susan Ibarra [address] [place] [address] PCP - General Internal Medicine 05/15/15 10/06/15 Santhosh Blancas MD [address] [place] [address] PCP - General Internal Medicine 10/07/15 03/26/23 [facility], Pcp [address] [place] [address] PCP - General Internal Medicine 03/27/23 documented as of this encounter
--- OUTSIDE RECORDS SUMMARY | 2025-02-04 11:12 | XMS_ITS | Encounter Summary ---
Author Organization [facility] Prior to 12/15/[address] [place] [address] Care Team Providers Care Final Inspector Motorcyles Name Role Phone Santhosh Blancas MD Primary Care Provider [phone] [facility], Pcp Primary Care Provider [facility] Encounter Details Date Type Department Care Team Description 11/26/2020 Chair Mechanic Report Medical Records [address] [place] [address] Social History Tobacco Use Types Packs/Day Years [...] AM EDT documented as of this encounter Plan of Treatment Not on file documented as of this encounter Visit Diagnoses Not on filedocumented in this encounter Care Teams Final Inspector Motorcyles Relationship Specialty Start Date End Date Santhosh Blancas MD [address] [place] [address] [id number] PCP - General Internal Medicine 10/07/15 03/26/23 [facility], Pcp [address] [place] [address] PCP - General Internal Medicine 03/27/23 documented as of this encounter
--- OUTSIDE RECORDS SUMMARY | 2025-02-04 11:12 | XMS_ITS | Encounter Summary ---
Author Organization [facility] Prior to 12/15/2023 Address [address] [place] [address] Care Team Providers Care Casket Trimmer Name Role Phone Santhosh Blancas MD Primary Care Provider [phone] [facility], Pcp Primary Care Provider Unavailabl e Encounter Details Date Type Department Care Team Description 11/08/2017 Parachute Accessories Attacher Report Medical Records [address] [place] [id number] [place] [address] Social History Tobacco Use Types Packs/Day Years [...] on filedocumented in this encounter Care Teams Casket Trimmer Relationship Specialty Start Date End Date Santhosh Blancas MD [address] [place] [address] PCP - General Internal Medicine 10/07/15 03/26/23 [facility], Pcp [address] [place] [address] PCP - General Internal Medicine 03/27/23 documented as of this encounter
--- OUTSIDE RECORDS SUMMARY | 2025-02-04 11:12 | XMS_ITS | Encounter Summary ---
Author Organization [facility] Prior to 12/15/2023 Address [address] [place] [address] Care Team Providers Care Refining Engineer Name Role Phone Santhosh Blancas MD Primary Care Provider [phone] [facility]cp Primary Care Provider [facility] Encounter Details Date Type Department Care Team Description 01/13/2021 SCAN Medical Records [address] [place] [address] Abstract, Provider Social History Tobacco Use Types Packs/Day Years [...] Name Priority Date/Time Associated Diagnosis Comments OUTSIDE LAB Routine 01/13/2021 documented in this encounter Results * OUTSIDE LAB (01/13/2021) Provider Default LAB documented in this encounter Visit Diagnoses Not on filedocumented in this encounter Care Teams Refining Engineer Relationship Specialty Start Date End Date Santhosh Blancas MD [address] [place] [address] PCP - General Internal Medicine 10/07/15 03/26/23 [facility], Pcp [address] [place] [address] PCP - General Internal Medicine 03/27/23 documented as of this encounter
--- OUTSIDE RECORDS SUMMARY | 2025-02-04 11:12 | XMS_ITS | Encounter Summary ---
Author Organization [facility] Prior to 12/15/2023 Address [facility] [place] [address] Care Team Providers Care Pipe Stem Aligner Name Role Phone Santhosh Blancas MD Primary Care Provider [phone] [facility], Pcp Primary Care Provider [facility] e Encounter Details Date Type Department Care Team Description 06/07/2019 Hospital Medical Records [address] [place] [address] Social History Tobacco Use Types Packs/Day Years [...] on filedocumented in this encounter Care Teams Pipe Stem Aligner Relationship Specialty Start Date End Date Santhosh Blancas MD [address] [place] [address] PCP - General Internal Medicine 10/07/15 03/26/23 [facility], Pcp [address] [place] [address] PCP - General Internal Medicine 03/27/23 documented as of this encounter
--- OUTSIDE RECORDS SUMMARY | 2025-02-04 11:12 | XMS_ITS | Encounter Summary ---
Author Organization [facility] Prior to 12/15/2023 Address [facility] [place] [address] Care Team Providers Care Process Improvement Manager Name Role Phone Santhosh Blancas MD Primary Care Provider [phone] [facility], Pcp Primary Care Provider Unavailabl e Reason for Visit * Reason Comments E-prescribe Rx Request Encounter Details Date Type Department Care Team Description 02/26/2023 Refill Adult Medicine - [address] [address] Santhosh Blancas MD [address] [place] [address] E-prescribe Rx Request Social History Tobacco Use Types Packs/Day Years [...] encounter Miscellaneous Notes * Telephone Encounter - Delmi Weston M.A. - 02/27/2023 12:48 PM EST Date of last office visit was 06/30/22. Lab Results Component Value Date NA 139 09/03/2021 K 4.1 09/03/2021 CO2 29 09/03/2021 CL 103 09/03/2021 BUN 11 09/03/2021 CREAT 0.91 09/03/2021 GLU 128 09/03/2021 CA 9.3 09/03/2021 GFR > 60 09/03/2021 Lab Results Component Value Date CHOL 104 09/03/2021 LDL 52 09/03/2021 HDL 37 09/03/2021 TRIG 75 09/03/2021 SGOT 19 09/03/2021 SGPT 16 09/21/2016 * Telephone Encounter - Amber Valdovinos - 02/27/2023 12:45 PM EST Patient would like script to be: E-PRESCRIBED/FAXED TO PHARMACY WHEN WAS THE PATIENT'S LAST APPOINTMENT IN ADULT MEDICINE? 06/30/22 WHEN WAS THE LAST TIME THE PATIENT SAW THEIR PCP? Same as above Does patient have an upcoming appointment? No- patient refused to book appointment (THE MEDICATION REQUESTED IS ON THE MED LIST ABOVE) All of the medications requested were on the CURRENT MEDS list Did you check the Pharmacy information above?: YES Patient wants: 90 -day supply Is this a mail order prescription request ? NO If the refill is from a FAXED refill request what is the RX # listed on the fax? N/A Patients current insurance carrier is: Payor: MARY / Plan: PPO $0 GENNARO [id number] / Product Type: PPO [id number] documented in this encounter Plan of Treatment Not on file documented as of this encounter Visit Diagnoses Diagnosis Generalized anxiety disorder History of CVA (cerebrovascular accident) Transient ischemic attack (TIA), and cerebral infarction without residual deficits documented in this encounter Care Teams Process Improvement Manager Relationship Specialty Start Date End Date Santhosh Blancas MD [address] [place] [address] PCP - General Internal Medicine 10/07/15 03/26/23 [facility], Pcp [address] [place] [address] PCP - General Internal Medicine 03/27/23 documented as of this encounter
--- OUTSIDE RECORDS SUMMARY | 2025-02-04 11:12 | XMS_ITS | Encounter Summary ---
Author Organization [facility] Prior to 12/15/2023 Address [address] [place] [address] Care Team Providers Care Music Coordinator Name Role Phone Santhosh Blancas MD Primary Care Provider [phone] [facility], Pcp Primary Care Provider Unavailabl e Encounter Details Date Type Department Care Team Description 02/25/2021 Fitness Manager Report Medical Records [address] [place] [address] Mauro Kevin MD Social History Tobacco Use [...] on filedocumented in this encounter Care Teams Music Coordinator Relationship Specialty Start Date End Date Santhosh Blancas MD [address] [place] [address] PCP - General Internal Medicine 10/07/15 03/26/23 [facility], Pcp [address] [place] [address] PCP - General Internal Medicine 03/27/23 documented as of this encounter
--- OUTSIDE RECORDS SUMMARY | 2025-02-04 11:12 | XMS_ITS | Encounter Summary ---
Author Organization [facility] Prior to 12/15/2023 Address [facility] [place] [address] Care Team Providers Care Courtesy Booth Cashier Name Role Phone Santhosh Blancas MD Primary Care Provider [phone] [facility], Pcp Primary Care Provider Unavailabl e Encounter Details Date Type Department Care Team Description 01/12/2021 Pt. Non Urgent Medical Question Adult Medicine - [address] [phone] Santhosh Blancas MD [address] [place] [address] Social History Tobacco Use Types Packs/Day Years [...] Telephone Encounter - Dixie Farias M.A. - 01/12/2021 10:48 AM ESTFrom: Jose Emanuel To: Samantha Blancas Sent: 01/12/2021 10:48 AM EST Subject: Neurologist Brittnee, I have a neurology follow-up scheduled with Dr. Kevin on February 02, which was a referral throughDr. Blancas. Will all my records automatically be sent to Dr. Kevin's office or do I need to make a special request/sign a release? documented in this encounter Plan of Treatment Not on file documented as of this encounter Visit Diagnoses Not on filedocumented in this encounter Care Teams Courtesy Booth Cashier Relationship Specialty Start Date End Date Santhosh Blancas MD [address] [place] [address] PCP - General Internal Medicine 10/07/15 03/26/23 [facility], [address] [address] PCP - General Internal Medicine 03/27/23 documented as of this encounter
--- OUTSIDE RECORDS SUMMARY | 2025-02-04 11:12 | XMS_ITS | Encounter Summary ---
Author Organization [facility] Prior to 12/15/2023 Address [facility] [place] [address] Care Team Providers Care Philosophy Instructor Name Role Phone Santhosh Blancas MD Primary Care Provider [phone] [facility], Pcp Primary Care Provider Unavailabl e Encounter Details Date Type Department Care Team Description 10/02/2020 Pt. Non Urgent Medical Question Adult Medicine - [address] [phone] Santhosh Blancas MD [address] [place] [address] Social History Tobacco Use Types Packs/Day Years [...] have Coronavirus / COVID-19? No / Unsure 09/18/2020 4:01 PM EDT documented as of this encounter Miscellaneous Notes * Telephone Encounter - Janelle Hanson M.A. - 10/02/2020 1:48 PM EDTFrom: Jose Emanuel To: Samantha Blancas Sent: 10/02/2020 1:15 PM EDT Subject: Covid Testing Hi, my and I were exposed to covid on Monday. She was exposed again on Monday. Should I come in for testing? documented in this encounter Plan of Treatment Not on file documented as of this encounter Visit Diagnoses Not on filedocumented in this encounter Care Teams Philosophy Instructor Relationship Specialty Start Date End Date Santhosh Blancas MD [address] [place] [address] PCP - General Internal Medicine 10/07/15 03/26/23 [facility], Pcp [address] [place] [address] PCP - General Internal Medicine 03/27/23 documented as of this encounter
--- OUTSIDE RECORDS SUMMARY | 2025-02-04 11:12 | XMS_ITS | Encounter Summary ---
Author Organization [facility] Prior to 12/15/2023 Address [facility] [place] [address] Care Team Providers Care Network Control Operators Supervisor Name Role Phone Santhosh Blancas MD Primary Care Provider [phone] [facility], Pcp Primary Care Provider Unavailabl e Reason for Visit * Reason Onset Date Comments External Sleep Study Request 05/18/2018 Jenna e sleep study Encounter Details Date Type Department Care Team Description 05/18/2018 Telephone Adult Medicine - [address] [address] Santhosh Blancas MD [address] [place] [address] External Sleep Study Request (Home sleep study) Social History Tobacco Use Types Packs/Day Years [...] encounter Miscellaneous Notes * Telephone Encounter - Joanne Gaston - 05/18/2018 10:39 AM EDT [employer]- no auth requried Order,notes, benefits faxed to Sleep Medicine Notification letter sent. documented in this encounter Plan of Treatment Not on file documented as of this encounter Visit Diagnoses Not on filedocumented in this encounter Care Teams Network Control Operators Supervisor Relationship Specialty Start Date End Date Santhosh Blancas MD [address] [place] [address] PCP - General Internal Medicine 10/07/15 03/26/23 [facility], [address] [address] PCP - General Internal Medicine 03/27/23 documented as of this encounter
--- OUTSIDE RECORDS SUMMARY | 2025-02-04 11:12 | XMS_ITS | Encounter Summary ---
Author Organization [facility] [employer] [facility] Prior to 12/15/[address] [place] [address] Care Team Providers Care K 12 School Principal Name Role Phone Santhosh Blancas MD Primary Care Provider [phone] [facility], Pcp Primary Care Provider [facility]ail[facility] e Encounter Details Date Type Department Care Team Description 12/24/2020 Release of Information Medical Records [address] [place] [address] Abstract, Provider Social History Tobacco Use Types [...] on filedocumented in this encounter Care Teams K 12 School Principal Relationship Specialty Start Date End Date Santhosh Blancas MD [address] [place] [address] PCP - General Internal Medicine 10/07/15 03/26/23 [facility], Pcp [address] [place] [address] PCP - General Internal Medicine 03/27/23 documented as of this encounter
--- OUTSIDE RECORDS SUMMARY | 2025-02-04 11:12 | XMS_ITS | Clinical Summary ---
Author Organization [facility] Address [address] [place] [address] Phone Care Team Providers Care Quality Control Assessor Name Role Phone Kelvin Melton MD Primary Care Provider [phone] Encounters Date Type Department Care Team Description 12/09/2024 Lab Requisition [facility] - Main Lab [address] [facility] [address] [place] [address] Miah Sevilla MD Encounter for sterilization 11/07/2024 Telephone [facility] Cardiology [facility] [address] [place] [address] Provider, Not In System from Last 3 Months Surgical History Surgery Date Site/Laterality Comments TONSILLECTOMY PROCEDURE: HISTORICAL TONSILLECTOMY ESOPHAGOGASTRODUODENOSCOPY PROCEDURE: WA ESOPHAGOGASTRODUODENOSCOPY TRANSORAL DIAGNOSTIC; COMMENT: 2009 COLONOSCOPY PROCEDURE: WA COLONOSCOPY STOMA DX INCLUDING COLLJ SPEC SPX; COMMENT: 2009 OTHER SURGICAL HISTORY PROCEDURE: WA UNLISTED PROCEDURE PELVIS/HIP JOINT; COMMENT: nerve impingement [...] and lumen identified. 12/12/2024 2:05 PM EDT [facility] at 1405 EDT Clinical Information Z30.2 Encounter for sterilization [id number] 12/12/2024 2:05 PM EDT [facility] Gross Description A. Vas Deferens, [...] embedding orientation.) /al 12/12/2024 2:05 PM EDT [facility] Disclaimer Unless otherwise specified, all tissue is 10% NB formalin fixed and paraffin embedded. Technical pathology services provided by [facility] Urology at [address] [place] [address] [address], [place] [address] (CLIA #[id number]/Dona Griffin MD, Tool Setter Apprentice) 12/12/2024 2:05 PM EDT [facility] Tissue Structure of left vas deferens / Unknown 12/06/2024 12/09/2024 4:32 PM EDT Tissue specimen (specimen) Structure of left vas deferens / Unknown 12/06/2024 12/09/2024 4:32 PM EDT Miah Sevilla MD LAB PATHOLOGY ORDERABLES Final [facility] [address] [place] [address], from Last 3 Months Insurance [employer] Care Teams Quality Control Assessor Relationship Specialty Start Date End Date Kelvin Melton MD [address] [place] [address] PCP - General Family Medicine 12/09/24
--- OUTSIDE RECORDS SUMMARY | 2025-02-04 11:12 | XMS_ITS | Encounter Summary ---
Author Organization [facility] Prior to 12/15/2023 Address [address] [place] [address] Care Team Providers Care Elevator Mechanic Apprentice Name Role Phone Santhosh Blancas MD Primary Care Provider [phone] Susan Ibarra Primary Care Provider [facility] Santhosh Blancas MD Primary Care Provider [phone] [facility] Primary Care Provider [facility] Encounter Details Date Type Department Care Team Description 04/12/2014 Hospital Medical Records [address] [place] [address] Zain Byers Social History Tobacco Use Types Packs/Day Years [...] on filedocumented in this encounter Care Teams Elevator Mechanic Apprentice Relationship Specialty Start Date End Date Santhosh Blancas MD [address] [place] [address] PCP - General 10/07/09 05/14/15 Susan Ibarra [address] [place] [address] PCP - General Internal Medicine 05/15/15 10/06/15 Santhosh Blancas MD [address] [place] [address] PCP - General Internal Medicine 10/07/15 03/26/23 [facility], [place] [address] PCP - General Internal Medicine 03/27/23 documented as of this encounter
--- OUTSIDE RECORDS SUMMARY | 2025-02-04 11:12 | XMS_ITS | Encounter Summary ---
Author Organization [facility] Prior to 12/15/2023 Address [facility] [place] [address] Care Team Providers Care Tank Truck Engine Mechanic Name Role Phone Santhosh Blancas MD Primary Care Provider [phone] [facility], Pcp Primary Care Provider Unavailabl e Reason for Visit * Reason Onset Date Comments Faxed Order 12/22/2020 [facility] Encounter Details Date Type Department Care Team Description 12/22/2020 Telephone Adult Medicine - [address] [id number] Santhosh Blancas MD [address] [place] [phone] Faxed Order (ATI) Social History Tobacco Use Types Packs/Day Years [...] encounter Miscellaneous Notes * Telephone Encounter - Amada Lozoya - 12/22/2020 10:13 AM EST Placed in doctors bin: [facility]I Please Review, Sign & Fax when completed. documented in this encounter Plan of Treatment Not on file documented as of this encounter Visit Diagnoses Not on filedocumented in this encounter Care Teams Tank Truck Engine Mechanic Relationship Specialty Start Date End Date Santhosh Blancas MD [address] [place] [address] PCP - General Internal Medicine 10/07/15 03/26/23 [facility], Pcp [address] [place] [id number] PCP - General Internal Medicine 03/27/23 documented as of this encounter
--- OUTSIDE RECORDS SUMMARY | 2025-02-04 11:12 | XMS_ITS | Encounter Summary ---
Author Organization [facility] Prior to 12/15/2023 Address [facility] [place] [address] Care Team Providers Care Stacker And Sorter Operator Name Role Phone Santhosh Blancas MD Primary Care Provider [facility], Pcp Primary Care Provider Unavailabl e Reason for Visit * Reason Onset Date Comments Provider Call Back 10/26/2020 Encounter Details Date Type Department Care Team Description 10/26/2020 Telephone Adult Medicine [address] [id number] Santhosh Blancas MD [address] [place] [phone] Provider Call Back Social History Tobacco Use Types Packs/Day Years [...] encounter Miscellaneous Notes * Telephone Encounter - Sayra Rojas M.A. - 10/26/2020 3:19 PM EDT [phone] [facility] 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 consulted physician at [facility] and agreed best course of action was to go to ER. Patient was sent with family to [facility] with copy of results of visual field test and a call ahead to expect to ER. Note was complete d by Dr. Sheikh and will be faxed to -[facility] for your review. No need to return the call, thank you. * Telephone Encounter - Caridad Sarah - 10/26/2020 2:47 PM EDT Caller requesting call back from provider: Is the caller the patient? NO If caller is not the patient, what is the callers name? Dr. Sheikh Callers relationship to patient? Eye doctor If person calling is not the patient themselves, is there a verbal release in FY or permanent comments for this person: NO Reason for call back: Patient being sent to [facility] Hemianopsis (Suspected stroke) Caller offered to speak with the nurse for assistance: NO Response: would like to speak to Dr. Blancas in regards to patient. documented in this encounter Plan of Treatment Not on file documented as of this encounter Visit Diagnoses Not on filedocumented in this encounter Care Teams Stacker And Sorter Operator Relationship Specialty Start Date End Date Santhosh Blancas MD [address] [place] [id number] PCP - General Internal Medicine 10/07/15 03/26/23 [facility], Pcp [address] [place] [id number] PCP - General Internal Medicine 03/27/23 documented as of this encounter
--- OUTSIDE RECORDS SUMMARY | 2025-02-04 11:12 | XMS_ITS | Encounter Summary ---
Author Organization [facility] Prior to 12/15/2023 Address [facility] [place] [address] Care Team Providers Care Apartment Leasing Manager Name Role Phone Santhosh Blancas MD Primary Care Provider [phone] [facility], Pcp [facility] En[facility] Details Date Type Department Care Team Description 04/07/2017 Window Shade Estimator Report Medical Records [address] [place] [id number] Abstract, Provider Social History Tobacco Use Types [...] on filedocumented in this encounter Care Teams Apartment Leasing Manager Relationship Specialty Start Date End Date Santhosh Blancas MD [address] [place] [id number] PCP - General Internal Medicine 10/07/15 03/26/23 [facility], Pcp [address] [place] [id number] PCP - General Internal Medicine 03/27/23 documented as of this encounter
== END 2025-02-04 11:03 | disposition home or self-care (01) ==
PROVIDERS: PCP Family Medicine; Visit Provider Nurse Practitioner Family
DX: Z51.89 Encounter for other specified aftercare (principal); Z95.818 Presence of other cardiac implants and grafts; I63.50 Cerebral infarction due to unspecified occlusion or stenosis of unspecified cerebral artery
CPT/HCPCS: 99213